=== PATIENT | female | born 1985 | race Caucasian/White ===

== ENCOUNTER 2020-08-13 11:24 | Emergency (ER) | payer MEDICARE, OTHER ==
[2020-08-13 11:31] VITALS: BP 130/74; PULSE 114; TEMP 98.2
[2020-08-13] MEDS ORDERED: SODIUM CHLORIDE 0.9% 1,000 ML IV STA (12:32)
[2020-08-13] MEDS ORDERED: ONDANSETRON 4 MG/2 ML VIAL IVP STA (12:33)
[2020-08-13] MEDS ORDERED: HYDROmorphone 1 MG/ML 1 ML SYRINGE IVP STA ×2 (12:33→16:19)
[2020-08-13] MEDS ORDERED: diphenhydrAMINE 50 MG/ML 1 ML VIAL IVP STA (12:33)
--- NOTE | 2020-08-13 12:36 | ED ---
Headache HPI - General Chief Complaint: Headache Stated Complaint: Headache, Fever Time Seen by Provider: 08/13/20 11:58 Mode of arrival: ambulatory Limitations: no limitations - History of Present Illness Initial Comments: 35-year-old female with history of pseudotumor cerebri, BP and lumbar shunt presents emergency Department with chief complaint nausea and vomiting. Patient reports the pain started yesterday with a gradual onset and now is located throughout her whole head. Patient states it is a throbbing pain with associated nausea and multiple episodes of nonbilious and nonbloody vomiting. Patient reports no significant neck stiffness. Patient states she had a fever yesterday but never actually taken her temperature. She took Tylenol and Motrin. Denies any chest pain or shortness of breath. Denies any blurry vision, one-sided weakness or paresthesias. - Related Data Home Medications Medication Instructions Recorded Confirmed DULoxetine HCL [Cymbalta] 120 mg PO DAILY 08/13/20 08/13/20 Divalproex Sodium [Depakote] 500 mg PO TID 08/13/20 08/13/20 Famotidine [Pepcid] 20 mg PO DAILY 08/13/20 08/13/20 Gabapentin 800 mg PO QID 08/13/20 08/13/20 HYDROcodone/APAP 5-325MG [Given 1 tab PO Q4HR PRN 08/13/20 08/13/20 5-325] Methocarbamol [Robaxin-750] 750 mg PO TID 08/13/20 08/13/20 Prazosin [Minipress] 5 mg PO HS 08/13/20 08/13/20 hydrOXYzine pamoate [Vistaril] 50 mg PO TID 08/13/20 08/13/20 traZODone HCL 300 mg PO HS 08/13/20 08/13/20 Allergies Allergy/AdvReac Type Severity Reaction Status Date / Time ketorolac [From Toradol] Allergy Anaphylaxis Verified 08/13/20 13:41 latex Allergy Anaphylaxis Verified 08/13/20 13:41 iodine AdvReac Rash/Hives Verified 08/13/20 13:41 Review of Systems ROS Statement: Those systems with pertinent positive or pertinent negative responses have been documented in the HPI. ROS Other: All systems not noted in ROS Statement are negative. Past Medical History Additional Past Medical History / Comment(s): intracranial hypertension History of Any Multi-Drug Resistant Organisms: None Reported Additional Past Surgical History / Comment(s): brain shunt Past Psychological History: Bipolar, PTSD Smoking Status: Current every day smoker Past Alcohol Use History: None Reported Past Drug Use History: Marijuana General Exam Limitations: no limitations General appearance: alert, in no apparent distress, obese Head exam: Present: atraumatic, normocephalic, normal inspection Eye exam: Present: normal appearance, PERRL, EOMI. Absent: scleral icterus, conjunctival injection, nystagmus, periorbital swelling, periorbital tenderness, other (Limited ophthalmic examination reveals no acute findings) Pupils: Present: normal accommodation ENT exam: Present: normal exam, normal oropharynx, mucous membranes moist, TM's normal bilaterally, normal external ear exam Neck exam: Present: normal inspection, full ROM. Absent: tenderness Respiratory exam: Present: normal lung sounds bilaterally. Absent: respiratory distress Cardiovascular Exam: Present: regular rate, normal rhythm, normal heart sounds GI/Abdominal exam: Present: soft. Absent: distended, tenderness, guarding Extremities exam: Present: normal inspection, full ROM, normal capillary refill. Absent: tenderness Back exam: Present: normal inspection, full ROM. Absent: tenderness, CVA tend erness (R), CVA tenderness (L) Neurological exam: Present: alert, oriented X3 Psychiatric exam: Present: normal affect, normal mood Skin exam: Present: warm, dry, intact, normal color Course Vital Signs 08/13/20 11:28 Temperature 98.2 F Pulse Rate 114 H Respiratory 18 Rate Blood Pressure 130/74 O2 Sat by Pulse 99 Oximetry Medical Decision Making - Medical Decision Making 35-year-old female presents to the emergency department with a chief complaint of a headache. On physical examination, no focal neural deficits. Patient is resting comfortably plainer phone. Patient does not appear to be any sig nificant discomfort or pain at this time. CBC reveals anemia but no signs of leukocytosis. Lactic acid within normal limits. CMP unremarkable. CT of the brain and C-spine is unremarkable. Blood cultures are pending. Vitals are stable in the emergency department. She had poor venous access so a midline had to be inserted. Patient does appear to exhibit drug-seeking behavior patient repetitively asked for Dilaudid or morphine. Strict return parameters were thoroughly discussed the patient was understanding and agreeable. This discussed with Dr. Armenta who also examined the patient and is in agreement with the treatment plan. - Lab Data Result diagrams: 08/13/20 12:58 08/13/20 12:58 Lab Results 08/13/20 08/13/20 08/13/20 Range/Units 12:58 12:58 12:58 WBC 4.1 (3.8-10.6) k/uL RBC 3.53 L (3.80-5.40) m/uL Hgb 9.3 L (11.4-16.0) gm/dL Hct 28.1 L (34.0-46.0) % MCV 79.7 L (80.0-100.0) fL MCH 26.4 (25.0-35.0) pg MCHC 33.2 (31.0-37.0) g/dL RDW 19.1 H (11.5-15.5) % Plt Count 201 (150-450) k/uL MPV 7.4 Neutrophils % 56 % Lymphocytes % 31 % Monocytes % 7 % Eosinophils % 3 % Basophils % 0 % Neutrophils # 2.3 (1.3-7.7) k/uL Lymphocytes # 1.3 (1.0-4.8) k/uL Monocytes # 0.3 (0-1.0) k/uL Eosinophils # 0.1 (0-0.7) k/uL Basophils # 0.0 (0-0.2) k/uL Hypochromasia Slight Anisocytosis Slight Microcytosis Slight Sodium 138 (137-145) mmol/L Potassium 4.0 (3.5-5.1) mmol/L Chloride 104 (98-107) mmol/L Carbon Dioxide 27 (22-30) mmol/L Anion Gap 7 mmol/L BUN 13 (7-17) mg/dL Creatinine 0.58 (0.52-1.04) mg/dL Est GFR (CKD-EPI)AfAm >90 (>60 ml/min/1.73 sqM) Est GFR (CKD-EPI)NonAf >90 (>60 ml/min/1.73 sqM) Glucose 82 (74-99) mg/dL Plasma Lactic Acid Tray (0.7-2.0) mmol/L Calcium 9.0 (8.4-10.2) mg/dL Total Bilirubin 0.4 (0.2-1.3) mg/dL AST 18 (14-36) U/L ALT 9 (4-34) U/L Alkaline Phosphatase 48 (38-126) U/L Total Protein 6.3 (6.3-8.2) g/dL Albumin 3.6 (3.5-5.0) g/dL Coronavirus (PCR) Not Detected (Not Detectd) 08/13/20 Range/Units 12:58 WBC (3.8-10.6) k/uL RBC (3.80-5.40) m/uL Hgb (11.4-16.0) gm/dL Hct (34.0-46.0) % MCV (80.0-100.0) fL MCH (25.0-35.0) pg MCHC (31.0-37.0) g/dL RDW (11.5-15.5) % Plt Count (150-450) k/uL MPV Neutrophils % % Lymphocytes % % Monocytes % % Eosinophils % % Basophils % % Neutrophils # (1.3-7.7) k/uL Lymphocytes # (1.0-4.8) k/uL Monocytes # (0-1.0) k/uL Eosinophils # (0-0.7) k/uL Basophils # (0-0.2) k/uL Hypochromasia Anisocytosis Microcytosis Sodium (137-145) mmol/L Potassium (3.5-5.1) mmol/L Chloride (98-107) mmol/L Carbon Dioxide (22-30) mmol/L Anion Gap mmol/L BUN (7-17) mg/dL Creatinine (0.52-1.04) mg/dL Est GFR (CKD-EPI)AfAm (>60 ml/min/1.73 sqM) Est GFR (CKD-EPI)NonAf (>60 ml/min/1.73 sqM) Glucose (74-99) mg/dL Plasma Lactic Acid Tray 0.8 (0.7-2.0) mmol/L Calcium (8.4-10.2) mg/dL Total Bilirubin (0.2-1.3) mg/dL AST (14-36) U/L ALT (4-34) U/L Alkaline Phosphatase (38-126) U/L Total Protein (6.3-8.2) g/dL Albumin (3.5-5.0) g/dL Coronavirus (PCR) (Not Detectd) Disposition Clinical Impression: Headache, Drug-seeking behavior Disposition: HOME SELF-CARE Condition: Stable Instructions (If sedation given, give patient instructions): Acute Headache (ED) Additional Instructions: Please return to the Emergency Department if symptoms worsen or any other concerns. Is patient prescribed a controlled substance at d/c from ED?: No Referrals: None,Stated [Primary Care Provider] - 1-2 days Time of Disposition: 16:08
[2020-08-13 15:23] LABS: Anisocytosis Slight; Basophils % (A) 0 %; Eosinophils # (A) 0.1 k/uL (0-0.7); Eosinophils % (A) 3 %; HCT 28.1 % (34.0-46.0); HGB 9.3 gm/dL (11.4-16.0); Hypochromasia Slight; Lymphocytes # (A) 1.3 k/uL (1.0-4.8); Lymphocytes % (A) 31 %; MCH 26.4 pg (25.0-35.0); MCHC 33.2 g/dL (31.0-37.0); MCV 79.7 fL (80.0-100.0); Mean Platelet Volume 7.4; Microcytosis Slight; Monocytes # (A) 0.3 k/uL (0-1.0); Monocytes % (A) 7 %; Neutrophils # (A) 2.3 k/uL (1.3-7.7); Neutrophils % (A) 56 %; Platelet Count 201 k/uL (150-450); RBC 3.53 m/uL (3.80-5.40); RDW 19.1 % (11.5-15.5); WBC 4.1 k/uL (3.8-10.6)
[2020-08-13 15:41] LABS: ALT 9 U/L (4-34); AST 18 U/L (14-36); African American GFR (CKD) >90 (>60 ml/min/1.73 sqM); Albumin 3.6 g/dL (3.5-5.0); Alkaline Phosphatase 48 U/L (38-126); Anion Gap 7 mmol/L; Blood Urea Nitrogen 13 mg/dL (7-17); Carbon Dioxide 27 mmol/L (22-30); Chloride 104 mmol/L (98-107); Glucose 82 mg/dL (74-99); Non-African American GFR(CKD) >90 (>60 ml/min/1.73 sqM); Sodium 138 mmol/L (137-145); Total Bilirubin 0.4 mg/dL (0.2-1.3); Total Protein 6.3 g/dL (6.3-8.2)
--- NOTE | 2020-08-13 18:38 | CT ---
EXAMINATION TYPE: CT brain wo con DATE OF EXAM: 08/13/2020 COMPARISON: 11/04/2012 HISTORY: Headache CT DLP: 1131.4 mGycm Automated exposure control for dose reduction was used. Ventricles have normal size. There is no mass effect nor midline shift. There is no sign of intracran ial hemorrhage. There is ventricular shunt catheter noted with the tip in the frontal horn left later al ventricle. There is no hydrocephalus. Skull base is intact. IMPRESSION: No acute intracranial abnormality. No change compared to old exam.
[2020-08-13] MEDS ORDERED: ACETAMINOPHEN TAB 325 MG TAB PO STA (19:25)
[2020-08-13 19:52] VITALS: RESP 16
== END 2020-08-13 19:49 | disposition home or self-care (01) ==
LOC: EC 11:24
DX: R51.9 Headache, unspecified (principal); Z76.5 Malingerer [conscious simulation]; I10 Essential (primary) hypertension; F17.200 Nicotine dependence, unspecified, uncomplicated
CPT/HCPCS: 36415; 80053; 83605; 85025; 87040; 87635; 70450; 99284; 96374; 96375; 96376; J1200; J2405; J1170

== ENCOUNTER 2020-08-16 14:26 | Emergency (ER) | payer MEDICARE, OTHER ==
[2020-08-16 14:41] VITALS: BP 123/86; PULSE 107; RESP 18
[2020-08-16 18:41] VITALS: TEMP 98.7
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
== END 2020-08-16 19:15 | disposition left against medical advice (07) ==
LOC: EC 14:26
DX: R51.9 Headache, unspecified (principal); F17.200 Nicotine dependence, unspecified, uncomplicated; F12.90 Cannabis use, unspecified, uncomplicated; G93.2 Benign intracranial hypertension; F31.9 Bipolar disorder, unspecified
CPT/HCPCS: 99283

== ENCOUNTER 2021-07-18 15:26 | Emergency (ER) | payer MEDICARE, OTHER ==
[2021-07-18 18:36] VITALS: BP 124/75; PULSE 74; RESP 18; TEMP 98.5
[2021-07-18] MEDS ORDERED: SODIUM CHLORIDE 0.9% 500 ML 500 ML IV STA (18:42)
[2021-07-18] MEDS ORDERED: METOCLOPRAMIDE 5 MG/ML 2 ML VIAL IVP STA (18:43)
[2021-07-18] MEDS ORDERED: diphenhydrAMINE 50 MG/ML 1 ML VIAL IVP STA (18:43)
[2021-07-18] MEDS ORDERED: MORPHINE SULFATE 4 MG/ML SYRINGE IV STA ×2 (18:43→21:48)
[2021-07-18] MEDS ORDERED: ONDANSETRON 4 MG/2 ML VIAL IVP STA (18:43)
--- NOTE | 2021-07-18 18:49 | ED ---
Headache HPI - General Chief Complaint: Headache Stated Complaint: headache, fever Time Seen by Provider: 07/18/21 18:35 Source: RN notes reviewed Mode of arrival: ambulatory Limitations: no limitations - History of Present Illness Initial Comments: This is a 36-year-old female history of pseudotumor cerebri, meningitis, ventriculoperitoneal shunt and lumbar shunt. Patient states the FINANCIAL PLANNING ADVISER shunt has been in for about 5 years. Patient states that she started having a fever, headache, vomiting yesterday. Patient also has some nasal congestion but denies cough or runny nose. Patient has had the COVID-19 vaccination but has not had the booster. Did not get a flu shot. Denies chest pain or shortness of breath. No abdominal pain. No diarrhea. States that she has had a fever up to 102., no changes in vision or hearing, no sore throat or difficulty with speech, no neck pain, no chest pain or shortness of breath, no abdominal pain, no changes in urination or bowel movements, no numbness or tingling, no extremity pain, no skin rashes or lesions. [facility] a detention. Patient has a neurologist a tray that she has not seen since 2020, Dr. Haley Lopez. Complaint: headache - Related Data Home Medications Medication Instructions Recorded Confirmed DULoxetine HCL [Cymbalta] 120 mg PO DAILY 08/13/20 08/13/20 Divalproex Sodium [Depakote] 500 mg PO TID 08/13/20 08/13/20 Famotidine [Pepcid] 20 mg PO DAILY 08/13/20 08/13/20 Gabapentin 800 mg PO QID 08/13/20 08/13/20 HYDROcodone/APAP 5-325MG [[place] 1 tab PO Q4HR PRN 08/13/20 08/13/20 5-325] Methocarbamol [Robaxin-750] 750 mg PO TID 08/13/20 08/13/20 Prazosin [Minipress] 5 mg PO HS 08/13/20 08/13/20 hydrOXYzine pamoate [Vistaril] 50 mg PO TID 08/13/20 08/13/20 traZODone HCL 300 mg PO HS 08/13/20 08/13/20 Previous Rx's Medication Instructions Recorded Isomethept/Dichlphn/Acetaminop 1 - 2 cap PO Q6H PRN 3 Days #24 cap 07/18/21 [Midrin] Allergies Allergy/AdvReac Type Severity Reaction Status Date / Time ketorolac [From Toradol] Allergy Anaphylaxis Verified 07/18/21 15:43 latex Allergy Anaphylaxis Verified 07/18/21 15:43 iodine AdvReac Rash/Hives Verified 07/18/21 15:43 Review of Systems ROS Statement: Those systems with pertinent positive or pertinent negative responses have been documented in the HPI. ROS Other: All systems not noted in ROS Statement are negative. Past Medical History Past Medical History: Seizure Disorder Additional Past Medical History / Comment(s): intracranial hypertension History of Any Multi-Drug Resistant Organisms: MRSA Date of last positivie culture/infection: L ear MDRO Source:: 2011 Past Surgical History: Back Surgery Additional Past Surgical History / Comment(s): brain shunt Past Psychological History: Bipolar, PTSD Smoking Status: Current every day smoker Past Alcohol Use History: None Reported Past Drug Use History: Marijuana General Exam - General Exam Comments Initial Comments: 36-year-old female in no significant distress. Cranial nerves II through XII are intact. Does not appear to be ill or toxic. Vital signs reviewed, minimally tachycardic. Limitations: no limitations General appearance: alert, in no apparent distress Head exam: Present: atraumatic, normocephalic, normal inspection Eye exam: Present: normal appearance, PERRL, EOMI. Absent: scleral icterus, conjunctival injection, periorbital swelling ENT exam: Present: normal exam, normal oropharynx, mucous membranes moist, TM's normal bilaterally Neck exam: Present: normal inspection, full ROM. Absent: tenderness, meningismus, lymphadenopathy Respiratory exam: Present: normal lung sounds bilaterally. Absent: respiratory distress, wheezes, rales, rhonchi, stridor Cardiovascular Exam: Present: regular rate, normal rhythm, normal heart sounds. Absent: systolic murmur, diastolic murmur, rubs, gallop, clicks GI/Abdominal exam: Present: soft, normal bowel sounds. Absent: distended, tenderness, guarding, rebound, rigid Extremities exam: Present: normal inspection, full ROM, normal capillary refill. Absent: tenderness, pedal edema, joint swelling, calf tenderness Back exam: Present: normal inspection Neurological exam: Present: alert, oriented X3, CN II-XII intact, normal gait, other (No evidence of nuchal rigidity. Cranial nerves II through XII are intact. Cerebellar testing is normal). Absent: altered, abnormal gait, motor sensory deficit, reflexes normal Psychiatric exam: Present: normal affect, normal mood Skin exam: Present: warm, dry, intact, normal color. Absent: rash Course Vital Signs 07/18/21 07/18/21 15:40 18:35 Temperature 98.0 F 98.5 F Pulse Rate 84 74 Respiratory 16 18 Rate Blood Pressure 139/85 124/75 O2 Sat by Pulse 100 99 Oximetry - Reevaluation(s) Reevaluation #1: 07/18/21 21:58 Medical record is reviewed Symptoms are improved here in the emergency department Patient is informed of results and questions answered Patient in no distress Medical Decision Making - Medical Decision Making Obtain a computed tomography scan as the patient does have a FINANCIAL PLANNING ADVISER shunt. However the patient looks well otherwise. Suspect the patient has viral syndrome. We'll order a workup to include influenza and COVID-19 testing. Plan for reevaluation initially morphine and Zofran, metoclopramide, and diphenhydramine were ordered The case was discussed in detail with ED attending physician. Presentation, findings, treatment plan discussed in detail. Patient reevaluated and is in no distress at discharge. Patient is actually laying on her phone when I reassessed her. She states that her pain is improv ed, down to about 410. I did agree to give her 1 more dose of pain medication here. We will prescribe headache medication for home. We'll give the patient follow-up with primary care physician and neurology in this area. Patient concurs with this treatment plan. We did discuss progress wrist cons of further evaluation such as lumbar puncture. This was deferred to shared decision- making. Patient was told to return to the ER for any signs or symptoms worsen. Told to return immediately if any other problems arise. All questions answered. Treatment plan discussed. Patient in agreement Every effort has been made to ensure accuracy of this dictation. However, due to the limitations of electronic medical records and dictation devices, errors in charting still occur. - Lab Data Result diagrams: 07/18/21 18:58 07/18/21 20:52 Lab Results 07/18/21 07/18/21 07/18/21 Range/Units 15:45 18:58 18:58 WBC 6.8 (3.8-10.6) k/uL RBC 3.94 (3.80-5.40) m/uL Hgb 10.5 L (11.4-16.0) gm/dL Hct 33.1 L (34.0-46.0) % MCV 84.1 (80.0-100.0) fL MCH 26.5 (25.0-35.0) pg MCHC 31.6 (31.0-37.0) g/dL RDW 18.2 H (11.5-15.5) % Plt Count 234 (150-450) k/uL MPV 8.6 Neutrophils % 66 % Lymphocytes % 26 % Monocytes % 5 % Eosinophils % 2 % Basophils % 0 % Neutrophils # 4.4 (1.3-7.7) k/uL Lymphocytes # 1.8 (1.0-4.8) k/uL Monocytes # 0.3 (0-1.0) k/uL Eosinophils # 0.1 (0-0.7) k/uL Basophils # 0.0 (0-0.2) k/uL Hypochromasia Marked Anisocytosis Slight Sodium (137-145) mmol/L Potassium (3.5-5.1) mmol/L Chloride (98-107) mmol/L Carbon Dioxide (22-30) mmol/L Anion Gap mmol/L BUN (7-17) mg/dL Creatinine (0.52-1.04) mg/dL Est GFR (CKD-EPI)AfAm (>60 ml/min/1.73 sqM) Est GFR (CKD-EPI)NonAf (>60 ml/min/1.73 sqM) Glucose (74-99) mg/dL Plasma Lactic Acid Tray (0.7-2.0) mmol/L Calcium (8.4-10.2) mg/dL Total Bilirubin (0.2-1.3) mg/dL AST (14-36) U/L ALT (4-34) U/L Alkaline Phosphatase (38-126) U/L Total Protein (6.3-8.2) g/dL Albumin (3.5-5.0) g/dL Lipase (23-300) U/L Urine Color Light Yellow Urine Appearance Clear (Clear) Urine pH 6.5 (5.0-8.0) Ur Specific [place] 1.005 (1.001-1.035) Urine Protein Negative (Negative) Urine Glucose (UA) Negative (Negative) Urine Ketones Negative (Negative) Urine Blood Negative (Negative) Urine Nitrite Negative (Negative) Urine Bilirubin Negative (Negative) Urine Urobilinogen <2.0 (<2.0) mg/dL Ur Leukocyte Esterase Negative (Negative) Urine HCG, Qual (Not Detectd) Coronavirus (PCR) Not Detected (Not Detectd) Influenza Type A RNA (Not Detectd) Influenza Type B (PCR) (Not Detectd) 07/18/21 07/18/21 07/18/21 Range/Units 18:58 18:58 19:05 WBC (3.8-10.6) k/uL RBC (3.80-5.40) m/uL Hgb (11.4-16.0) gm/dL Hct (34.0-46.0) % MCV (80.0-100.0) fL MCH (25.0-35.0) pg MCHC (31.0-37.0) g/dL RDW (11.5-15.5) % Plt Count (150-450) k/uL MPV Neutrophils % % Lymphocytes % % Monocytes % % Eosinophils % % Basophils % % Neutrophils # (1.3-7.7) k/uL Lymphocytes # (1.0-4.8) k/uL Monocytes # (0-1.0) k/uL Eosinophils # (0-0.7) k/uL Basophils # (0-0.2) k/uL Hypochromasia Anisocytosis Sodium (137-145) mmol/L Potassium (3.5-5.1) mmol/L Chloride (98-107) mmol/L Carbon Dioxide (22-30) mmol/L Anion Gap mmol/L BUN (7-17) mg/dL Creatinine (0.52-1.04) mg/dL Est GFR (CKD-EPI)AfAm (>60 ml/min/1.73 sqM) Est GFR (CKD-EPI)NonAf (>60 ml/min/1.73 sqM) Glucose (74-99) mg/dL Plasma Lactic Acid Tray 0.7 (0.7-2.0) mmol/L Calcium (8.4-10.2) mg/dL Total Bilirubin (0.2-1.3) mg/dL AST (14-36) U/L ALT (4-34) U/L Alkaline Phosphatase (38-126) U/L Total Protein (6.3-8.2) g/dL Albumin (3.5-5.0) g/dL Lipase (23-300) U/L Urine Color Urine Appearance (Clear) Urine pH (5.0-8.0) Ur Specific [place] (1.001-1.035) Urine Protein (Negative) Urine Glucose (UA) (Negative) Urine Ketones (Negative) Urine Blood (Negative) Urine Nitrite (Negative) Urine Bilirubin (Negative) Urine Urobilinogen (<2.0) mg/dL Ur Leukocyte Esterase (Negative) Urine HCG, Qual Not Detected (Not Detectd) Coronavirus (PCR) (Not Detectd) Influenza Type A RNA Not Detected (Not Detectd) Influenza Type B (PCR) Not Detected (Not Detectd) 07/18/21 Range/Units 20:52 WBC (3.8-10.6) k/uL RBC (3.80-5.40) m/uL Hgb (11.4-16.0) gm/dL Hct (34.0-46.0) % MCV (80.0-100.0) fL MCH (25.0-35.0) pg MCHC (31.0-37.0) g/dL RDW (11.5-15.5) % Plt Count (150-450) k/uL MPV Neutrophils % % Lymphocytes % % Monocytes % % Eosinophils % % Basophils % % Neutrophils # (1.3-7.7) k/uL Lymphocytes # (1.0-4.8) k/uL Monocytes # (0-1.0) k/uL Eosinophils # (0-0.7) k/uL Basophils # (0-0.2) k/uL Hypochromasia Anisocytosis Sodium 137 (137-145) mmol/L Potassium 4.0 (3.5-5.1) mmol/L Chloride 107 (98-107) mmol/L Carbon Dioxide 22 (22-30) mmol/L Anion Gap 8 mmol/L BUN 12 (7-17) mg/dL Creatinine 0.57 (0.52-1.04) mg/dL Est GFR (CKD-EPI)AfAm >90 (>60 ml/min/1.73 sqM) Est GFR (CKD-EPI)NonAf >90 (>60 ml/min/1.73 sqM) Glucose 87 (74-99) mg/dL Plasma Lactic Acid Tray (0.7-2.0) mmol/L Calcium 9.1 (8.4-10.2) mg/dL Total Bilirubin 0.4 (0.2-1.3) mg/dL AST 15 (14-36) U/L ALT 12 (4-34) U/L Alkaline Phosphatase 67 (38-126) U/L Total Protein 7.4 (6.3-8.2) g/dL Albumin 4.2 (3.5-5.0) g/dL Lipase 298 (23-300) U/L Urine Color Urine Appearance (Clear) Urine pH (5.0-8.0) Ur Specific [place] (1.001-1.035) Urine Protein (Negative) Urine Glucose (UA) (Negative) Urine Ketones (Negative) Urine Blood (Negative) Urine Nitrite (Negative) Urine Bilirubin (Negative) Urine Urobilinogen (<2.0) mg/dL Ur Leukocyte Esterase (Negative) Urine HCG, Qual (Not Detectd) Coronavirus (PCR) (Not Detectd) Influenza Type A RNA (Not Detectd) Influenza Type B (PCR) (Not Detectd) Disposition Clinical Impression: Acute headache Disposition: HOME SELF-CARE Condition: Good Instructions (If sedation given, give patient instructions): Acute Headache (ED) Additional Instructions: Follow-up with your regular physician as directed. Return to the ER immediately if any symptoms worsen, new symptoms arise, or any other problems develop. Prescriptions: Isomethept/Dichlphn/Acetaminop [Midrin] 1 - 2 cap PO Q6H PRN 3 Days #24 cap PRN Reason: Headache Is patient prescribed a controlled substance at d/c from ED?: No Referrals: Amla Delia Smith MD [REFERRING] - 1-2 days Kain Brar [STAFF PHYSICIAN] - 1-2 days Time of Disposition: 21:58
[2021-07-18 19:22] LABS: Anisocytosis Slight; Appearance,Urine Clear (Clear); Basophils % (A) 0 %; Bilirubin,Urine Negative (Negative); Blood,Urine Negative (Negative); Color,Urine Light Yellow; Eosinophils # (A) 0.1 k/uL (0-0.7); Eosinophils % (A) 2 %; Glucose,Urine (UA) Negative (Negative); HCT 33.1 % (34.0-46.0); HGB 10.5 gm/dL (11.4-16.0); Hypochromasia Marked; Ketones,Urine Negative (Negative); Leukocyte Esterase,Urine Negative (Negative); Lymphocytes # (A) 1.8 k/uL (1.0-4.8); Lymphocytes % (A) 26 %; MCH 26.5 pg (25.0-35.0); MCHC 31.6 g/dL (31.0-37.0); MCV 84.1 fL (80.0-100.0); Mean Platelet Volume 8.6; Monocytes # (A) 0.3 k/uL (0-1.0); Monocytes % (A) 5 %; Neutrophils # (A) 4.4 k/uL (1.3-7.7); Neutrophils % (A) 66 %; Nitrite,Urine Negative (Negative); PH, Urine 6.5 (5.0-8.0); Platelet Count 234 k/uL (150-450); Protein,Urine Negative (Negative); RBC 3.94 m/uL (3.80-5.40); RDW 18.2 % (11.5-15.5); Specific Gravity,Urine 1.005 (1.001-1.035); Urobilinogen,Urine <2.0 mg/dL (<2.0); WBC 6.8 k/uL (3.8-10.6)
[2021-07-18 21:10] LABS: ALT 12 U/L (4-34); AST 15 U/L (14-36); African American GFR (CKD) >90 (>60 ml/min/1.73 sqM); Albumin 4.2 g/dL (3.5-5.0); Alkaline Phosphatase 67 U/L (38-126); Anion Gap 8 mmol/L; Blood Urea Nitrogen 12 mg/dL (7-17); Calcium 9.1 mg/dL (8.4-10.2); Carbon Dioxide 22 mmol/L (22-30); Chloride 107 mmol/L (98-107); Glucose 87 mg/dL (74-99); Lipase 298 U/L (23-300); Non-African American GFR(CKD) >90 (>60 ml/min/1.73 sqM); Sodium 137 mmol/L (137-145); Total Bilirubin 0.4 mg/dL (0.2-1.3); Total Protein 7.4 g/dL (6.3-8.2)
--- NOTE | 2021-07-18 21:20 | CT ---
EXAMINATION TYPE: CT brain wo con CT DLP: 1133.4 mGycm, Automated exposure control for dose reduction was used. DATE OF EXAM: 07/18/2021 9:10 PM COMPARISON: Prior CT Brain from 08/13/2020. CLINICAL INDICATION:Female, 36 years old with history of Headache, TECHNIQUE: Brain: Multiple axial CT images of the brain were obtained without IV contrast. FINDINGS: Brain: Extra-axial spaces: No abnormal extra-axial fluid collections. Ventricular system: Right frontal approach ventriculostomy catheter with tip terminating near the lef t caudate nucleus similar to prior. The ventricular system appears similar in morphology dilation. Ca theter tubing appears intact. Cerebral parenchyma: No acute intraparenchymal hemorrhage or mass effect. The negrete-white junction is well differentiated. Cerebellum: Unremarkable. Mass effect: No evidence of midline shift. Intracranial vasculature: unremarkable Soft tissues: Normal. Calvarium/osseous structures: No depressed skull fracture. Benign hyperostosis frontalis noted. Paranasal sinuses and mastoid air cells: Clear Visualized orbits: Orbital contents are intact. IMPRESSION: 1. No acute intracranial process. 2. Stable appearance of the ventricular system and right frontal approach ventriculostomy catheter.
== END 2021-07-18 22:45 | disposition home or self-care (01) ==
LOC: EC 15:26
DX: R51.9 Headache, unspecified (principal); I10 Essential (primary) hypertension; F17.200 Nicotine dependence, unspecified, uncomplicated; Z20.822 Contact with and (suspected) exposure to COVID-19; Z88.6 Allergy status to analgesic agent; Z91.040 Latex allergy status; Z91.041 Radiographic dye allergy status
CPT/HCPCS: 36415; 80053; 83605; 83690; 85025; 81003; 81025; 87040; 87502; 87635; 70450; 99284; 96374; 96375; 96376; J2270; J1200; J2405

== ENCOUNTER 2021-07-19 16:10 | Emergency (ER) | payer MEDICARE, OTHER ==
[2021-07-19 17:14] VITALS: RESP 18; TEMP 98.5
[2021-07-19] MEDS ORDERED: METOCLOPRAMIDE 5 MG/ML 2 ML VIAL IVP STA (19:52)
[2021-07-19] MEDS ORDERED: ONDANSETRON 4 MG/2 ML VIAL IVP STA (19:52)
[2021-07-19] MEDS ORDERED: diphenhydrAMINE 50 MG/ML 1 ML VIAL IVP STA (19:52)
[2021-07-19] MEDS ORDERED: MORPHINE SULFATE 2 MG/ML SYRINGE IVP STA ×2 (19:58→23:21)
--- NOTE | 2021-07-19 21:10 | ED ---
Headache HPI - General Chief Complaint: Headache Stated Complaint: Fever,Vomiting Time Seen by Provider: 07/19/21 18:58 Mode of arrival: ambulatory Limitations: no limitations - History of Present Illness Initial Comments: Patient is a 36-year-old female presenting with chief complaint of headache. 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 Patient was seen here yesterday for the same complaint. Head CT showed no acute intracranial process and pain was responsive to morphine, Benadryl, Reglan, Zofran. She was discharged with Midrin which she has not taken home for pain relief. Patient is complaining of diffuse headache, fever, neck pain or stiffness. She has not seen her neurologist Dr. Lopez in about a year. Patient admits to light sensitivity, nausea, and double vision. Patient denies numbness, tingling, paresthesia, weakness, syncope, seizure, vomiting, abdominal pain, chest pain, shortness of breath, palpitations, confusion. - Related Data Home Medications Medication Instructions Recorded Confirmed DULoxetine HCL [Cymbalta] 120 mg PO DAILY 08/13/20 08/13/20 Divalproex Sodium [Depakote] 500 mg PO TID 08/13/20 08/13/20 Famotidine [Pepcid] 20 mg PO DAILY 08/13/20 08/13/20 Gabapentin 800 mg PO QID 08/13/20 08/13/20 HYDROcodone/APAP 5-325MG [[place] 1 tab PO Q4HR PRN 08/13/20 08/13/20 5-325] Methocarbamol [Robaxin-750] 750 mg PO TID 08/13/20 08/13/20 Prazosin [Minipress] 5 mg PO HS 08/13/20 08/13/20 hydrOXYzine pamoate [Vistaril] 50 mg PO TID 08/13/20 08/13/20 traZODone HCL 300 mg PO HS 08/13/20 08/13/20 Previous Rx's Medication Instructions Recorded Isomethept/Dichlphn/Acetaminop 1 - 2 cap PO Q6H PRN 3 Days #24 cap 07/18/21 [Midrin] Allergies Allergy/AdvReac Type Severity Reaction Status Date / Time ketorolac [From Toradol] Allergy Anaphylaxis Verified 07/19/21 17:14 latex Allergy Anaphylaxis Verified 07/19/21 17:14 iodine AdvReac Rash/Hives Verified 07/19/21 17:14 Review of Systems ROS Statement: Those systems with pertinent positive or pertinent negative responses have been documented in the HPI. ROS Other: All systems not noted in ROS Statement are negative. Past Medical History Past Medical History: Seizure Disorder Additional Past Medical History / Comment(s): intracranial hypertension History of Any Multi-Drug Resistant Organisms: MRSA Date of last positivie culture/infection: L ear MDRO Source:: 2011 Past Surgical History: Back Surgery Additional Past Surgical History / Comment(s): brain shunt Past Psychological History: Bipolar, PTSD Smoking Status: Current every day smoker Past Alcohol Use History: None Reported Past Drug Use History: Marijuana General Exam Limitations: no limitations General appearance: alert, in no apparent distress Head exam: Present: atraumatic, normocephalic, normal inspection Eye exam: Present: normal appearance, PERRL, EOMI. Absent: scleral icterus, conjunctival injection, periorbital swelling Neck exam: Present: normal inspection, meningismus, full ROM (Pt states pain with ROM). Absent: tenderness Expanded Neck exam: Present: other (Pt suddenyl jerks when performing kernig's) Respiratory exam: Present: normal lung sounds bilaterally. Absent: respiratory distress, wheezes, rales, rhonchi, stridor Cardiovascular Exam: Present: regular rate, normal rhythm, normal heart sounds. Absent: systolic murmur, diastolic murmur, rubs, gallop, clicks Neurological exam: Present: alert, oriented X3, CN II-XII intact Expanded Patient oriented to: Present: person, place, time Speech: Present: fluid speech Eye Response: (4) open spontaneously Motor Response: (6) obeys commands Verbal Response: (5) oriented Me[place] Total: 15 Psychiatric exam: Present: normal affect, normal mood Skin exam: Present: warm, dry, intact, normal color. Absent: rash Course Vital Signs 07/19/21 07/19/21 17:11 21:00 Temperature 98.5 F Pulse Rate 99 90 Respiratory 18 18 Rate Blood Pressure 117/81 122/78 O2 Sat by Pulse 100 100 Oximetry - Reevaluation(s) Reevaluation #1: Pt states that pain is somewhat relieved. She is sitting up and on phone at evaluation. Explained to patient the need for transfer. patient conveyed verbal understanding and agreed to the plan 07/19/21 22:07 Medical Decision Making - Medical Decision Making Patient is a 36-year-old female presenting with chief complaint of headache. She was evaluated in this ER yesterday for the same complaint, head CT showed no acute process and lab showed no leukocytosis. Today a shunt series is being obtained and CBC and CMP were drawn. On exam she complains of neck tenderness and stiffness, when performing Kernig's she suddenly jerks citing increased head pain and pressure. She is given morphine 2 mg, Zofran 4 mg, Reglan, and Benadryl 25 mg for pain and nausea. Patient states this is somewhat helpful but does not completely alleviate symptoms. Lab work shows normal white count and shunt series shows no discontinuation of shunt. Case discussed with Dr. Brandt, he evaluated and examined the patient as well and advised transfer to hospital with neurosurgery. We are concerned for shunt malfunction, and my attending is not comfortable with performing LP due to current lumbar shunt. [facility] is accepting transfer under Dr. Hong. Patient conveyed verbal understanding and agreed to the plan. Answered all questions. I discussed this case with my attending Dr. Brandt - Lab Data Result diagrams: 07/19/21 20:53 07/19/21 20:53 Lab Results 07/19/21 07/19/21 Range/Units 20:53 20:53 WBC 6.8 (3.8-10.6) k/uL RBC 3.97 (3.80-5.40) m/uL Hgb 10.4 L (11.4-16.0) gm/dL Hct 34.0 (34.0-46.0) % MCV 85.7 (80.0-100.0) fL MCH 26.3 (25.0-35.0) pg MCHC 30.7 L (31.0-37.0) g/dL RDW 18.1 H (11.5-15.5) % Plt Count 257 (150-450) k/uL MPV 7.6 Neutrophils % 58 % Lymphocytes % 29 % Monocytes % 6 % Eosinophils % 6 % Basophils % 0 % Neutrophils # 3.9 (1.3-7.7) k/uL Lymphocytes # 2.0 (1.0-4.8) k/uL Monocytes # 0.4 (0-1.0) k/uL Eosinophils # 0.4 (0-0.7) k/uL Basophils # 0.0 (0-0.2) k/uL Hypochromasia Marked Anisocytosis Slight Sodium 136 L (137-145) mmol/L Potassium 4.6 (3.5-5.1) mmol/L Chloride 106 (98-107) mmol/L Carbon Dioxide 24 (22-30) mmol/L Anion Gap 6 mmol/L BUN 10 (7-17) mg/dL Creatinine 0.55 (0.52-1.04) mg/dL Est GFR (CKD-EPI)AfAm >90 (>60 ml/min/1.73 sqM) Est GFR (CKD-EPI)NonAf >90 (>60 ml/min/1.73 sqM) Glucose 90 (74-99) mg/dL Calcium 8.8 (8.4-10.2) mg/dL Total Bilirubin 0.5 (0.2-1.3) mg/dL AST 23 (14-36) U/L ALT 12 (4-34) U/L Alkaline Phosphatase 49 (38-126) U/L Total Protein 7.0 (6.3-8.2) g/dL Albumin 3.8 (3.5-5.0) g/dL - Radiology Data Radiology results: report reviewed Shunt series: No discontinuity of shunt Disposition Clinical Impression: Headache, Double vision, OFFSET PLATE PREPARATION SUPERVISOR (ventriculoperitoneal) shunt status, Presence of lumboperitoneal shunt Disposition: DISCH/TRANS TO A [facility] Condition: Fair Is patient prescribed a controlled substance at d/c from ED?: No Referrals: None,Stated [Primary Care Provider] - 1-2 days Time of Disposition: 22:04 - Out of Hospital Transfer - Req. Specs Out of Hospital Transfer - Requested Specifics: Other Non-Acute (neuro surgery - Dr. Hong)
[2021-07-19 21:12] LABS: Anisocytosis Slight; Basophils % (A) 0 %; Eosinophils # (A) 0.4 k/uL (0-0.7); Eosinophils % (A) 6 %; HGB 10.4 gm/dL (11.4-16.0); Hypochromasia Marked; Lymphocytes % (A) 29 %; MCH 26.3 pg (25.0-35.0); MCHC 30.7 g/dL (31.0-37.0); MCV 85.7 fL (80.0-100.0); Mean Platelet Volume 7.6; Monocytes # (A) 0.4 k/uL (0-1.0); Monocytes % (A) 6 %; Neutrophils # (A) 3.9 k/uL (1.3-7.7); Neutrophils % (A) 58 %; Platelet Count 257 k/uL (150-450); RBC 3.97 m/uL (3.80-5.40); RDW 18.1 % (11.5-15.5); WBC 6.8 k/uL (3.8-10.6)
[2021-07-19 21:24] LABS: ALT 12 U/L (4-34); AST 23 U/L (14-36); African American GFR (CKD) >90 (>60 ml/min/1.73 sqM); Albumin 3.8 g/dL (3.5-5.0); Alkaline Phosphatase 49 U/L (38-126); Anion Gap 6 mmol/L; Blood Urea Nitrogen 10 mg/dL (7-17); Calcium 8.8 mg/dL (8.4-10.2); Carbon Dioxide 24 mmol/L (22-30); Chloride 106 mmol/L (98-107); Glucose 90 mg/dL (74-99); Non-African American GFR(CKD) >90 (>60 ml/min/1.73 sqM); Potassium 4.6 mmol/L (3.5-5.1); Sodium 136 mmol/L (137-145); Total Bilirubin 0.5 mg/dL (0.2-1.3)
--- NOTE | 2021-07-19 21:28 | XR ---
RESULT: HISTORY: shunt series - headache TECHNIQUE: 2 views skull AP view chest. 2 views abdomen/ KUB COMPARISON: 11/13/2012. FINDINGS: There is demonstration of right-sided SHOVEL ENGINEER shunt catheter. The distal portion of the catheter courses t owards the abdominal left upper quadrant with multiple loops seen. Otherwise no discontinuity of the shunt catheter. Additional short right lower abdominal quadrant catheter seen. The visualized lungs are clear. Nonobstructive bowel gas pattern. No acute osseous abnormality. IMPRESSION: Right SHOVEL ENGINEER shunt catheter with multiple looping of distal portion coursing towards the abdominal left u pper quadrant. No discontinuity seen. Additional right lower quadrant catheter.
[2021-07-19 21:51] VITALS: BP 122/78; PULSE 90
== END 2021-07-19 23:33 ==
LOC: EC 16:10
DX: R51.9 Headache, unspecified (principal); H53.2 Diplopia; F17.200 Nicotine dependence, unspecified, uncomplicated; Z91.040 Latex allergy status; Z88.6 Allergy status to analgesic agent; Z91.041 Radiographic dye allergy status
CPT/HCPCS: 36415; 80053; 85025; 70250; 71045; 74018; 99284; 96374; 96375; 96376; J1200; J2405; J2270

== ENCOUNTER 2021-07-22 10:53 | Emergency (ER) | payer MEDICARE, OTHER ==
[2021-07-22 10:58] VITALS: TEMP 98
[2021-07-22] MEDS ORDERED: MORPHINE SULFATE 4 MG/ML SYRINGE IV STA (11:13)
[2021-07-22] MEDS ORDERED: SODIUM CHLORIDE 0.9% 1,000 ML IV STA (11:13)
[2021-07-22] MEDS ORDERED: ONDANSETRON 4 MG/2 ML VIAL IVP STA ×3 (11:13→16:41)
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
[2021-07-22 12:05] LABS: Appearance,Urine Clear (Clear); Bilirubin,Urine Negative (Negative); Blood,Urine Negative (Negative); Color,Urine Yellow; Glucose,Urine (UA) Negative (Negative); Ketones,Urine Trace (Negative); Leukocyte Esterase,Urine Negative (Negative); Nitrite,Urine Negative (Negative); Protein,Urine Negative (Negative); Specific Gravity,Urine 1.025 (1.001-1.035); Urobilinogen,Urine <2.0 mg/dL (<2.0)
[2021-07-22 13:12] LABS: ALT 13 U/L (4-34); AST 16 U/L (14-36); African American GFR (CKD) >90 (>60 ml/min/1.73 sqM); Albumin 4.6 g/dL (3.5-5.0); Alkaline Phosphatase 70 U/L (38-126); Anion Gap 12 mmol/L; Anisocytosis Slight; Basophils % (A) 0 %; Blood Urea Nitrogen 14 mg/dL (7-17); Calcium 9.2 mg/dL (8.4-10.2); Carbon Dioxide 19 mmol/L (22-30); Chloride 109 mmol/L (98-107); Eosinophils # (A) 0.2 k/uL (0-0.7); Eosinophils % (A) 3 %; Glucose 82 mg/dL (74-99); HCT 41.7 % (34.0-46.0); HGB 12.2 gm/dL (11.4-16.0); Hypochromasia Marked; Lipase 346 U/L (23-300); Lymphocytes # (A) 1.3 k/uL (1.0-4.8); Lymphocytes % (A) 23 %; MCH 25.7 pg (25.0-35.0); MCHC 29.4 g/dL (31.0-37.0); MCV 87.7 fL (80.0-100.0); Mean Platelet Volume 7.3; Monocytes # (A) 0.3 k/uL (0-1.0); Monocytes % (A) 5 %; Neutrophils # (A) 3.9 k/uL (1.3-7.7); Neutrophils % (A) 67 %; Non-African American GFR(CKD) >90 (>60 ml/min/1.73 sqM); Platelet Count 256 k/uL (150-450); Potassium 4.1 mmol/L (3.5-5.1); RBC 4.76 m/uL (3.80-5.40); RDW 17.5 % (11.5-15.5); Sodium 140 mmol/L (137-145); Total Bilirubin 0.5 mg/dL (0.2-1.3); Total Protein 8.1 g/dL (6.3-8.2); WBC 5.8 k/uL (3.8-10.6)
[2021-07-22 13:21] VITALS: RESP 18
[2021-07-22] MEDS ORDERED: HYDROmorphone 0.5 MG/0.5 ML SYRINGE IVP STA (13:25)
[2021-07-22 13:41] LABS: INR 0.9 (<1.2); Partial Thromboplastin Time 26.3 sec (22.0-30.0); Prothrombin Time 10.1 sec (9.0-12.0)
[2021-07-22] MEDS ORDERED: FAMOTIDINE 20 MG/2 ML VIAL IV STA (13:45)
[2021-07-22] MEDS ORDERED: methylPREDNISolone SOD SUCCI 125 MG/2 ML VIAL IV STA (13:45)
[2021-07-22] MEDS ORDERED: diphenhydrAMINE 50 MG/ML 1 ML VIAL IVP STA (13:45)
--- NOTE | 2021-07-22 13:47 | US ---
EXAMINATION TYPE: US transvaginal DATE OF EXAM: 07/22/2021 COMPARISON: NONE CLINICAL HISTORY: r/o torsion. Pain, spotting TECHNIQUE: . Transabdominal sonographic images of the pelvis were acquired. Transvaginal sonographi c images were medically necessary to better assess the following anatomy: Endometrium, ovaries Date of LMP: Not provided EXAM MEASUREMENTS: Uterus: 8.4 x 4.1 x 6.3 cm Endometrial Stripe: 1.6 cm Ovaries not seen 1. Uterus: Myometrial echotexture is stable, within normal limits. Some probable nabothian cysts are present at the cervix 2. Endometrium: Abnormally thickened 5. Bilateral Adnexa: Unremarkable 6. Posterior cul-de-sac: Small amount of fluid is present IMPRESSION: Abnormal thickening of the endometrium, consider short interval follow-up, SPRING UP SUPERVISOR consult. L imitations as described, ovaries are not visualized.
[2021-07-22 15:55] VITALS: BP 125/82; PULSE 101
--- NOTE | 2021-07-22 15:55 | CT ---
EXAMINATION TYPE: CT abdomen pelvis w con DATE OF EXAM: 07/22/2021 COMPARISON: No previous CT scan is available for comparison. HISTORY: LLQ pain CT DLP: 1305 mGycm Automated exposure control for dose reduction was used. TECHNIQUE: Helical acquisition of images was performed from the lung bases through the pelvis. CONTRAST: Performed without Oral Contrast and with IV Contrast, patient injected with 100ml mL of Isovue 300. FINDINGS: Motion artifacts and from the patient's arms. LUNG BASES: No significant abnormality is appreciated. LIVER/GB: No significant abnormality is appreciated. PANCREAS: No significant abnormality is seen. SPLEEN: No significant abnormality is seen. ADRENALS: No significant abnormality is seen. KIDNEYS: No significant abnormality is seen. FREE AIR: No free air is visualized. RETROPERITONEAL ADENOPATHY: None visualized REPRODUCTIVE ORGANS: Endometrial thickness of 15 mm which could be normal for the patient's age, plea se correlate clinically and with pelvic ultrasound results. Otherwise no gross uterine or adnexal mas s. URINARY BLADDER: Nondistended and grossly unremarkable. PELVIC ADENOPATHY: None visualized. OSSEOUS STRUCTURES: No gross aggressive bone lesion. BOWEL: Unremarkable nondistended stomach, duodenum and small bowel. No bowel obstruction. No gross c olonic abnormality yet suboptimally assessed due to motion artifacts. The appendix is not well identi fied. OTHER: A ENROBER shunt is seen with the tip is coiling the left upper quadrant. Other shunt is seen connec ting the spinal canal to the peritoneal cavity, also seen in the left upper quadrant. Small amount of free right pelvic fluid. IMPRESSION: Small amount of right pelvic fluid. This is nonspecific and could be related to a recently ruptured r ight ovarian follicle or cyst. Some fecalization of the small bowel is also seen at that location, po ssibly reactive. No evidence of small bowel obstruction. No gross colonic abnormality. The appendix i s not identified. Other incidental findings as detailed above.
[2021-07-22] MEDS ORDERED: HYDROcodone/APAP 5-325MG 1 EACH TAB PO STA (16:36)
[2021-07-22] MEDS ORDERED: MORPHINE SULFATE 2 MG/ML SYRINGE IVP STA (16:41)
== END 2021-07-22 17:07 | disposition home or self-care (01) ==
LOC: EC 10:53
DX: R11.2 Nausea with vomiting, unspecified (principal); R19.7 Diarrhea, unspecified; F17.200 Nicotine dependence, unspecified, uncomplicated; Z88.6 Allergy status to analgesic agent; Z91.041 Radiographic dye allergy status; Z91.040 Latex allergy status; Z88.8 Allergy status to other drugs, medicaments and biological substances; Z88.9 Allergy status to unspecified drugs, medicaments and biological substances
CPT/HCPCS: 36415; 86900; 86901; 80053; 83605; 83690; 85025; 85610; 85730; 86850; 82272; 81003; 81025; 76830; 74177; 99284; 96374; 96375; 96376; 96361; J2270 ×2; J1200; J2930; J2405; J1170; Q9967

== ENCOUNTER 2021-07-23 12:48 | Emergency (ER) | payer MEDICARE, OTHER ==
[2021-07-23 13:34] VITALS: PULSE 83; RESP 16; TEMP 97.3
[2021-07-23] MEDS ORDERED: SODIUM CHLORIDE 0.9% 1,000 ML IV STA (13:40)
[2021-07-23] MEDS ORDERED: HYDROmorphone 0.5 MG/0.5 ML SYRINGE IM STA (13:40)
[2021-07-23] MEDS ORDERED: ONDANSETRON 4 MG/2 ML VIAL IVP STA (13:40)
--- NOTE | 2021-07-23 14:17 | ED ---
General Adult HPI - General Chief complaint: GI Bleed Stated complaint: Blood in stool/vomiting Source: patient, EMS Mode of arrival: EMS - History of Present Illness Initial comments: 36-year-old female with past medical history of intracranial hypertension status post [employer]NAGER and LP shunt presents emergency department for blood in stool and vomit. Patient was seen yesterday for similar complaint. Has a history of colitis and gastritis. States that she started yesterday with multiple episodes of bright red blood in her vomit. Patient additionally had some dark-colored stools. She seen in the emergency department laboratory studies were completed. Patient had a CT and an ultrasound performed. Does have a history of ovarian torsion. States the pain does not feel similar however ultrasound failed to visualize ovaries. Patient had improvement in her pain and wanted to go home. States she's been taking Zofran but continues to have vomiting with blood. Denies any changes in her urination. Does have concern for . Patient has been taking Tylenol for pain control without improvement. No other alleviating, precipitating or modifying factors - Related Data Home Medications Medication Instructions Recorded Confirmed DULoxetine HCL [Cymbalta] 120 mg PO DAILY 08/13/20 07/23/21 Gabapentin 800 mg PO QID 08/13/20 07/23/21 Methocarbamol [Robaxin-750] 750 mg PO TID PRN 08/13/20 07/23/21 Prazosin [Minipress] 5 mg PO HS 08/13/20 07/23/21 hydrOXYzine pamoate [Vistaril] 50 mg PO QID 08/13/20 07/23/21 traZODone HCL 300 mg PO HS 08/13/20 07/23/21 Cariprazine HCl [Vraylar] 4.5 mg PO DAILY 07/22/21 07/23/21 Divalproex ER [Depakote ER] 500 mg PO BID 07/22/21 07/23/21 OLANZapine [ZyPREXA] 10 mg PO BID 07/22/21 07/23/21 Ondansetron [Zofran] 4 mg PO Q8HR PRN 07/22/21 07/23/21 Previous Rx's Medication Instructions Recorded Ondansetron Odt [Zofran ODT] 4 mg PO Q8HR PRN #10 tab 07/22/21 Promethazine [Phenergan] 25 mg PO Q6HR PRN #20 tablet 07/23/21 Allergies Allergy/AdvReac Type Severity Reaction Status Date / Time Iodinated Contrast Media Allergy Rash/Hives Verified 08/12/21 08:03 iodine Allergy Rash/Hives Verified 08/12/21 08:03 ketorolac [From Toradol] Allergy Anaphylaxis Verified 08/12/21 08:03 latex Allergy Anaphylaxis Verified 08/12/21 08:03 metoclopramide [From Reglan] Allergy Unknown Verified 08/12/21 08:03 prochlorperazine Allergy Unknown Verified 08/12/21 08:03 [From Compazine] sumatriptan [From Imitrex] Allergy Unknown Verified 08/12/21 08:03 vancomycin AdvReac red man Verified 08/12/21 08:03 syndrome Review of Systems ROS Statement: Those systems with pertinent positive or pertinent negative responses have been documented in the HPI. ROS Other: All systems not noted in ROS Statement are negative. Past Medical History Past Medical History: Seizure Disorder Additional Past Medical History / Comment(s): intracranial hypertension, colitis, gastritis History of Any Multi-Drug Resistant Organisms: MRSA Date of last positivie culture/infection: L ear MDRO Source:: 2011 Past Surgical History: Back Surgery Additional Past Surgical History / Comment(s): brain shunt Past Psychological History: Bipolar, PTSD Smoking Status: Current every day smoker Past Alcohol Use History: None Reported Past Drug Use History: Marijuana General Exam General appearance: alert, in no apparent distress Head exam: Present: atraumatic, normocephalic, normal inspection Eye exam: Present: normal appearance, PERRL, EOMI. Absent: scleral icterus, conjunctival injection, periorbital swelling ENT exam: Present: normal exam, mucous membranes moist Neck exam: Present: normal inspection. Absent: tenderness, meningismus, ly mphadenopathy Respiratory exam: Present: normal lung sounds bilaterally. Absent: respiratory distress, wheezes, rales, rhonchi, stridor Cardiovascular Exam: Present: regular rate, normal rhythm, normal heart sounds. Absent: systolic murmur, diastolic murmur, rubs, gallop, clicks GI/Abdominal exam: Present: soft, normal bowel sounds. Absent: distended, tenderness, guarding, rebound, rigid Extremities exam: Present: normal inspection, full ROM, normal capillary refill. Absent: tenderness, pedal edema, joint swelling, calf tenderness Back exam: Present: normal inspection Neurological exam: Present: alert, oriented X3, CN II-XII intact Psychiatric exam: Present: normal affect, normal mood Skin exam: Present: warm, dry, intact, normal color. Absent: rash Course Vital Signs 07/23/21 07/23/21 13:23 19:08 Temperature 97.3 F L Pulse Rate 83 83 Respiratory 16 16 Rate Blood Pressure 137/102 132/107 O2 Sat by Pulse 100 96 Oximetry Medical Decision Making - Medical Decision Making Upon arrival patient is placed into room 21. A thorough history and physical exam was performed. I did review the patient's CT, ultrasound and laboratory studies that were done yesterday. Patient continues to have reported hematemesis and the stools. Rectal exam is performed and found to be occult negative. Repeat laboratory studies were conducted. I attempted to repeat an ultrasound. Laboratory studies are reviewed. Ultrasound continues to the be unable to demonstrate the ovaries. The patient was given a dose of pain and nausea medications. I did reevaluate the patient. Reports improvement in her symptoms at this time. Is requesting additional doses of pain medications upon several occasions to me and the nurse. Patient will be discharged home at this time and is instructed follow-up with GI. Take her medications as directed and return for any new or worsening symptoms. Patient agreed to treatment plan was discharged home ambulatory in stable condition - Lab Data Result diagrams: 07/23/21 15:35 07/23/21 15:35 Lab Results 07/23/21 07/23/21 07/23/21 Range/Units 15:35 15:35 15:35 WBC 9.0 (3.8-10.6) k/uL RBC 4.41 (3.80-5.40) m/uL Hgb 11.4 (11.4-16.0) gm/dL Hct 40.9 (34.0-46.0) % MCV 92.8 D (80.0-100.0) fL MCH 25.9 (25.0-35.0) pg MCHC 28.0 L (31.0-37.0) g/dL RDW 17.6 H (11.5-15.5) % Plt Count 250 (150-450) k/uL MPV 7.8 Neutrophils % 73 % Lymphocytes % 18 % Monocytes % 6 % Eosinophils % 1 % Basophils % 1 % Neutrophils # 6.6 (1.3-7.7) k/uL Lymphocytes # 1.6 (1.0-4.8) k/uL Monocytes # 0.5 (0-1.0) k/uL Eosinophils # 0.0 (0-0.7) k/uL Basophils # 0.1 (0-0.2) k/uL Hypochromasia Marked Anisocytosis Slight Sodium 138 (137-145) mmol/L Potassium 3.7 (3.5-5.1) mmol/L Chloride 108 H (98-107) mmol/L Carbon Dioxide 18 L (22-30) mmol/L Anion Gap 12 mmol/L BUN 15 (7-17) mg/dL Creatinine 0.56 (0.52-1.04) mg/dL Est GFR (CKD-EPI)AfAm >90 (>60 ml/min/1.73 sqM) Est GFR (CKD-EPI)NonAf >90 (>60 ml/min/1.73 sqM) Glucose 91 (74-99) mg/dL Lactic Ac Sepsis Rflx Plasma Lactic Acid Tray 2.1 H* (0.7-2.0) mmol/L Calcium 8.9 (8.4-10.2) mg/dL Magnesium 2.0 (1.6-2.3) mg/dL Total Bilirubin 0.5 (0.2-1.3) mg/dL AST 21 (14-36) U/L ALT 13 (4-34) U/L Alkaline Phosphatase 57 (38-126) U/L Total Protein 7.1 (6.3-8.2) g/dL Albumin 4.0 (3.5-5.0) g/dL Lipase 237 (23-300) U/L Urine Color Urine Appearance (Clear) Urine pH (5.0-8.0) Ur Specific [place] (1.001-1.035) Urine Protein (Negative) Urine Glucose (UA) (Negative) Urine Ketones (Negative) Urine Blood (Negative) Urine Nitrite (Negative) Urine Bilirubin (Negative) Urine Urobilinogen (<2.0) mg/dL Ur Leukocyte Esterase (Negative) Stool Occult Blood (Negative) 07/23/21 07/23/21 07/23/21 Range/Units 15:46 15:46 16:00 WBC (3.8-10.6) k/uL RBC (3.80-5.40) m/uL Hgb (11.4-16.0) gm/dL Hct (34.0-46.0) % MCV (80.0-100.0) fL MCH (25.0-35.0) pg MCHC (31.0-37.0) g/dL RDW (11.5-15.5) % Plt Count (150-450) k/uL MPV Neutrophils % % Lymphocytes % % Monocytes % % Eosinophils % % Basophils % % Neutrophils # (1.3-7.7) k/uL Lymphocytes # (1.0-4.8) k/uL Monocytes # (0-1.0) k/uL Eosinophils # (0-0.7) k/uL Basophils # (0-0.2) k/uL Hypochromasia Anisocytosis Sodium (137-145) mmol/L Potassium (3.5-5.1) mmol/L Chloride (98-107) mmol/L Carbon Dioxide (22-30) mmol/L Anion Gap mmol/L BUN (7-17) mg/dL Creatinine (0.52-1.04) mg/dL Est GFR (CKD-EPI)AfAm (>60 ml/min/1.73 sqM) Est GFR (CKD-EPI)NonAf (>60 ml/min/1.73 sqM) Glucose (74-99) mg/dL Lactic Ac Sepsis Rflx Y Plasma Lactic Acid Tray (0.7-2.0) mmol/L Calcium (8.4-10.2) mg/dL Magnesium (1.6-2.3) mg/dL Total Bilirubin (0.2-1.3) mg/dL AST (14-36) U/L ALT (4-34) U/L Alkaline Phosphatase (38-126) U/L Total Protein (6.3-8.2) g/dL Albumin (3.5-5.0) g/dL Lipase (23-300) U/L Urine Color Yellow Urine Appearance Clear (Clear) Urine pH 5.5 (5.0-8.0) Ur Specific [place] 1.026 (1.001-1.035) Urine Protein Negative (Negative) Urine Glucose (UA) Negative (Negative) Urine Ketones Negative (Negative) Urine Blood Negative (Negative) Urine Nitrite Negative (Negative) Urine Bilirubin Negative (Negative) Urine Urobilinogen <2.0 (<2.0) mg/dL Ur Leukocyte Esterase Negative (Negative) Stool Occult Blood Negative (Negative) Disposition Clinical Impression: Abdominal pain, Nausea and vomiting Disposition: HOME SELF-CARE Condition: Stable Instructions (If sedation given, give patient instructions): Abdominal Pain (ED) Additional Instructions: Please take the pain and nausea medications as directed. Follow up with a GI doctor. Return for any worsening symptoms Prescriptions: Promethazine [Phenergan] 25 mg PO Q6HR PRN #20 tablet PRN Reason: nausea Is patient prescribed a controlled substance at d/c from ED?: No Referrals: None,Stated [Primary Care Provider] - 1-2 days Brissa Jj MD [STAFF PHYSICIAN] - 1-2 days Time of Disposition: 18:08
[2021-07-23] MEDS ORDERED: HYDROmorphone 0.5 MG/0.5 ML SYRINGE IVP STA ×2 (15:42→18:03)
[2021-07-23 15:57] LABS: Appearance,Urine Clear (Clear); Bilirubin,Urine Negative (Negative); Blood,Urine Negative (Negative); Color,Urine Yellow; Glucose,Urine (UA) Negative (Negative); Ketones,Urine Negative (Negative); Leukocyte Esterase,Urine Negative (Negative); Nitrite,Urine Negative (Negative); PH, Urine 5.5 (5.0-8.0); Protein,Urine Negative (Negative); Specific Gravity,Urine 1.026 (1.001-1.035); Urobilinogen,Urine <2.0 mg/dL (<2.0)
[2021-07-23 15:57] LABS: ALT 13 U/L (4-34); AST 21 U/L (14-36); African American GFR (CKD) >90 (>60 ml/min/1.73 sqM); Alkaline Phosphatase 57 U/L (38-126); Anion Gap 12 mmol/L; Blood Urea Nitrogen 15 mg/dL (7-17); Calcium 8.9 mg/dL (8.4-10.2); Carbon Dioxide 18 mmol/L (22-30); Chloride 108 mmol/L (98-107); Glucose 91 mg/dL (74-99); Lipase 237 U/L (23-300); Non-African American GFR(CKD) >90 (>60 ml/min/1.73 sqM); Potassium 3.7 mmol/L (3.5-5.1); Sodium 138 mmol/L (137-145); Total Bilirubin 0.5 mg/dL (0.2-1.3); Total Protein 7.1 g/dL (6.3-8.2)
[2021-07-23 16:17] LABS: Anisocytosis Slight; Basophils # (A) 0.1 k/uL (0-0.2); Basophils % (A) 1 %; Eosinophils % (A) 1 %; HCT 40.9 % (34.0-46.0); HGB 11.4 gm/dL (11.4-16.0); Hypochromasia Marked; Lymphocytes # (A) 1.6 k/uL (1.0-4.8); Lymphocytes % (A) 18 %; MCH 25.9 pg (25.0-35.0); Mean Platelet Volume 7.8; Monocytes # (A) 0.5 k/uL (0-1.0); Monocytes % (A) 6 %; Neutrophils # (A) 6.6 k/uL (1.3-7.7); Neutrophils % (A) 73 %; Platelet Count 250 k/uL (150-450); RBC 4.41 m/uL (3.80-5.40); RDW 17.6 % (11.5-15.5)
[2021-07-23 16:18] LABS: MCV 92.8 fL (80.0-100.0)
--- NOTE | 2021-07-23 17:56 | US ---
EXAMINATION TYPE: US transvaginal DATE OF EXAM: 07/23/2021 COMPARISON: NONE CLINICAL HISTORY: ovarian torsion. LLQ pain TECHNIQUE: Transvaginal (TV). EXAM MEASUREMENTS: Uterus: 6.3 x 2.9 x 5.7 cm Endometrial Stripe: .8 cm 1. Uterus: Anteverted wnl 2. Endometrium: wnl 3. Right Ovary: Obscured by overlying bowel gas 4. Left Ovary: Obscured by overlying bowel gas 5. Bilateral Adnexa: wnl 6. Posterior cul-de-sac: wnl IMPRESSION: Normal uterus and endometrium. Ovaries not seen. No adnexal mass. No free fluid.
[2021-07-23] MEDS ORDERED: ACET/COD 300 MG/30 MG STARTER PACK 6 TAB BTL PO STA (18:04)
[2021-07-23 19:10] VITALS: BP 132/107
== END 2021-07-23 19:14 | disposition home or self-care (01) ==
LOC: EC 12:48
DX: R10.9 Unspecified abdominal pain (principal); R11.2 Nausea with vomiting, unspecified; F17.200 Nicotine dependence, unspecified, uncomplicated; I10 Essential (primary) hypertension; Z91.041 Radiographic dye allergy status; Z88.8 Allergy status to other drugs, medicaments and biological substances; Z88.6 Allergy status to analgesic agent; Z91.040 Latex allergy status; Z88.1 Allergy status to other antibiotic agents; Z87.19 Personal history of other diseases of the digestive system; Z79.899 Other long term (current) drug therapy
CPT/HCPCS: 36415; 80053; 83605; 83690; 83735; 85025; 82272; 81003; 76830; 99285; 96374; 96375; 96376; 96361; J2405; J1170

== ENCOUNTER 2021-07-26 19:54 | Emergency (ER) | payer MEDICARE, OTHER ==
[2021-07-26 21:31] VITALS: BP 123/74; TEMP 98
[2021-07-27] MEDS ORDERED: diphenhydrAMINE 50 MG/ML 1 ML VIAL IVP STA (04:15)
[2021-07-27] MEDS ORDERED: SODIUM CHLORIDE 0.9% 1,000 ML IV STA (04:15)
[2021-07-27] MEDS ORDERED: MORPHINE SULFATE 4 MG/ML SYRINGE IVP STA (04:15)
[2021-07-27] MEDS ORDERED: ORPHENADRINE 30 MG/ML 2 ML VIAL IVP STA (04:15)
[2021-07-27] MEDS ORDERED: PROCHLORPERAZINE INJ 10 MG/2 ML VIAL IVP STA (04:15)
--- NOTE | 2021-07-27 04:16 | ED ---
Headache HPI - General Chief Complaint: Headache Stated Complaint: headache Time Seen by Provider: 07/27/21 04:15 Source: RN notes reviewed, old records reviewed Mode of arrival: ambulatory Limitations: no limitations - History of Present Illness Initial Comments: This is a 36-year-old female to the ER for evaluation of headache. Patient has recently becoming well-known to our ER for recurrent evaluation and need for treatment of headache chronic migraines. Patient is without any new trauma noted fevers. Mild nausea no active vomiting versus light, ultrasound. This is just like her classic migraine headaches MD Complaint: headache, "migraine" -: days(s) Onset Description: gradual Location: right, left, temporal Severity: moderate Severity scale (1-10): 4 Quality: aching, throbbing Consistency: constant Improves With: nothing Worsens With: none Associated Symptoms: nausea, vomiting Other Symptoms: other (none) Treatments Prior to Arrival: none - Related Data Home Medications Medication Instructions Recorded Confirmed DULoxetine HCL [Cymbalta] 120 mg PO DAILY 08/13/20 07/23/21 Gabapentin 800 mg PO QID 08/13/20 07/23/21 Methocarbamol [Robaxin-750] 750 mg PO TID PRN 08/13/20 07/23/21 Prazosin [Minipress] 5 mg PO HS 08/13/20 07/23/21 hydrOXYzine pamoate [Vistaril] 50 mg PO QID 08/13/20 07/23/21 traZODone HCL 300 mg PO HS 08/13/20 07/23/21 Cariprazine HCl [Vraylar] 4.5 mg PO DAILY 07/22/21 07/23/21 Divalproex ER [Depakote ER] 500 mg PO BID 07/22/21 07/23/21 OLANZapine [ZyPREXA] 10 mg PO BID 07/22/21 07/23/21 Ondansetron [Zofran] 4 mg PO Q8HR PRN 07/22/21 07/23/21 Previous Rx's Medication Instructions Recorded Ondansetron Odt [Zofran ODT] 4 mg PO Q8HR PRN #10 tab 07/22/21 Promethazine [Phenergan] 25 mg PO Q6HR PRN #20 tablet 07/23/21 Allergies Allergy/AdvReac Type Severity Reaction Status Date / Time Iodinated Contrast Media Allergy Rash/Hives Verified 08/13/21 15:17 iodine Allergy Rash/Hives Verified 08/13/21 15:17 ketorolac [From Toradol] Allergy Anaphylaxis Verified 08/13/21 15:17 latex Allergy Anaphylaxis Verified 08/13/21 15:17 metoclopramide [From Reglan] Allergy Unknown Verified 08/13/21 15:17 prochlorperazine Allergy Unknown Verified 08/13/21 15:17 [From Compazine] sumatriptan [From Imitrex] Allergy Unknown Verified 08/13/21 15:17 vancomycin AdvReac red man Verified 08/13/21 15:17 syndrome Review of Systems ROS Statement: Those systems with pertinent positive or pertinent negative responses have been documented in the HPI. ROS Other: All systems not noted in ROS Statement are negative. Past Medical History Past Medical History: Seizure Disorder Additional Past Medical History / Comment(s): intracranial hypertension, colitis, gastritis History of Any Multi-Drug Resistant Organisms: MRSA Date of last positivie culture/infection: L ear MDRO Source:: 2011 Past Surgical History: Back Surgery Additional Past Surgical History / Comment(s): brain shunt Past Psychological History: Bipolar, PTSD Smoking Status: Current every day smoker Past Alcohol Use History: None Reported Past Drug Use History: Marijuana General Exam Limitations: no limitations General appearance: alert, in no apparent distress Head exam: Present: atraumatic, normocephalic, normal inspection Eye exam: Present: normal appearance, PERRL, EOMI. Absent: scleral icterus, conjunctival injection, periorbital swelling ENT exam: Present: normal exam, mucous membranes moist Neck exam: Present: normal inspection. Absent: tenderness, meningismus, lymphadenopathy Respiratory exam: Present: normal lung sounds bilaterally. Absent: respiratory distress, wheezes, rales, rhonchi, stridor Cardiovascular Exam: Present: regular rate, normal rhythm, normal heart sounds. Absent: systolic murmur, diastolic murmur, rubs, gallop, clicks GI/Abdominal exam: Present: soft, normal bowel sounds. Absent: distended, tenderness, guarding, rebound, rigid Extremities exam: Present: normal inspection, full ROM, normal capillary refill. Absent: tenderness, pedal edema, joint swelling, calf tenderness Back exam: Present: normal inspection Neurological exam: Present: alert, oriented X3, CN II-XII intact Psychiatric exam: Present: normal affect, normal mood Skin exam: Present: warm, dry, intact, normal color. Absent: rash Course Vital Signs 07/26/21 07/27/21 21:29 06:24 Temperature 98.0 F Pulse Rate 87 71 Respiratory 20 18 Rate Blood Pressure 123/74 123/74 O2 Sat by Pulse 100 95 Oximetry - Reevaluation(s) Reevaluation #1: 07/27/21 Medical records reviewed Patient informed results and questions answered Patient symptoms are improved here in the emergency department Medical Decision Making - Medical Decision Making 36 female to the emergency department for evaluation of headache patient's headache is resolved here in the ER and can be discharged home for further treatment on outpatient basis. Disposition Clinical Impression: Headache, Acute headache Disposition: HOME SELF-CARE Condition: Good Instructions (If sedation given, give patient instructions): Acute Headache (ED) Is patient prescribed a controlled substance at d/c from ED?: No Referrals: None,Stated [Primary Care Provider] - 1-2 days
[2021-07-27] MEDS ORDERED: HYDROmorphone 1 MG/ML 1 ML SYRINGE IVP STA (04:25)
[2021-07-27] MEDS ORDERED: ONDANSETRON ODT 4 MG TAB PO STA (04:43)
[2021-07-27] MEDS ORDERED: HYDROmorphone 1 MG/ML 1 ML SYRINGE IM STA (04:43)
[2021-07-27] MEDS ORDERED: diphenhydrAMINE 50 MG CAP PO STA (04:43)
[2021-07-27] MEDS ORDERED: CYCLOBENZAPRINE 10 MG TAB PO STA (05:00)
[2021-07-27] MEDS ORDERED: ONDANSETRON 4 MG ODT STARTER PACK 2 TAB BTL PO STA (05:23)
[2021-07-27 06:26] VITALS: PULSE 71; RESP 18
== END 2021-07-27 06:26 | disposition home or self-care (01) ==
LOC: EC 19:54
DX: R51.9 Headache, unspecified (principal); R11.2 Nausea with vomiting, unspecified; F17.200 Nicotine dependence, unspecified, uncomplicated; I10 Essential (primary) hypertension; Z88.8 Allergy status to other drugs, medicaments and biological substances; Z91.041 Radiographic dye allergy status; Z91.040 Latex allergy status; Z88.6 Allergy status to analgesic agent; Z88.1 Allergy status to other antibiotic agents; Z79.899 Other long term (current) drug therapy
CPT/HCPCS: 99283; 96372; J1170

== ENCOUNTER 2021-07-29 22:55 | Emergency (ER) | payer MEDICARE, OTHER ==
[2021-07-30 00:29] VITALS: TEMP 98.1
--- NOTE | 2021-07-30 04:02 | ED ---
Psych HPI - General Chief Complaint: Psychiatric Symptoms Stated Complaint: abdominal pain Time Seen by Provider: 07/30/21 01:17 Source: patient, RN notes reviewed, old records reviewed Mode of arrival: ambulatory Limitations: no limitations - History of Present Illness Initial Comments: This is a 36-year-old female to the emergency department for evaluation. Patient initially did have some abdominal pain that is resolved is currently happening here in the ER now she has left-sided abdominal pain history of left- sided ovarian cyst and torsion with surgery. Patient thinks she has recurrent cyst asking for something for pain. She admits to suicide and depression although now on evaluation she denying suicidal thoughts and depression and just wants pain control and discharged MD Complaint: suicidal ideation (Denies), feels depressed (States she always has episodically depressed) -: unknown Associated Psychiatric Symptoms: depression, suicidal ideation (Denies) History of same: Yes Quality: intermittent Improves With: none Worsens With: none Associated Symptoms: denies other symptoms Treatments Prior to Arrival: none - Related Data Home Medications Medication Instructions Recorded Confirmed DULoxetine HCL [Cymbalta] 120 mg PO DAILY 08/13/20 07/23/21 Gabapentin 800 mg PO QID 08/13/20 07/23/21 Methocarbamol [Robaxin-750] 750 mg PO TID PRN 08/13/20 07/23/21 Prazosin [Minipress] 5 mg PO HS 08/13/20 07/23/21 hydrOXYzine pamoate [Vistaril] 50 mg PO QID 08/13/20 07/23/21 traZODone HCL 300 mg PO HS 08/13/20 07/23/21 Cariprazine HCl [Vraylar] 4.5 mg PO DAILY 07/22/21 07/23/21 Divalproex ER [Depakote ER] 500 mg PO BID 07/22/21 07/23/21 OLANZapine [ZyPREXA] 10 mg PO BID 07/22/21 07/23/21 Ondansetron [Zofran] 4 mg PO Q8HR PRN 07/22/21 07/23/21 Previous Rx's Medication Instructions Recorded Ondansetron Odt [Zofran ODT] 4 mg PO Q8HR PRN #10 tab 07/22/21 Promethazine [Phenergan] 25 mg PO Q6HR PRN #20 tablet 07/23/21 Allergies Allergy/AdvReac Type Severity Reaction Status Date / Time Iodinated Contrast Media Allergy Rash/Hives Verified 07/30/21 00:29 iodine Allergy Rash/Hives Verified 07/30/21 00:29 ketorolac [From Toradol] Allergy Anaphylaxis Verified 07/30/21 00:29 latex Allergy Anaphylaxis Verified 07/30/21 00:29 metoclopramide [From Reglan] Allergy Unknown Verified 07/30/21 00:29 prochlorperazine Allergy Unknown Verified 07/30/21 00:29 [From Compazine] sumatriptan [From Imitrex] Allergy Unknown Verified 07/30/21 00:29 vancomycin AdvReac red man Verified 07/30/21 00:29 syndrome Review of Systems ROS Statement: Those systems with pertinent positive or pertinent negative responses have been documented in the HPI. ROS Other: All systems not noted in ROS Statement are negative. Past Medical History Past Medical History: Seizure Disorder Additional Past Medical History / Comment(s): intracranial hypertension, colitis, gastritis History of Any Multi-Drug Resistant Organisms: MRSA Date of last positivie culture/infection: L ear MDRO Source:: 2011 Past Surgical History: Back Surgery Additional Past Surgical History / Comment(s): brain shunt Past Psychological History: Bipolar, PTSD Smoking Status: Current every day smoker Past Alcohol Use History: None Reported Past Drug Use History: Marijuana General Exam General appearance: alert, in no apparent distress, anxious Head exam: Present: atraumatic, normocephalic, normal inspection Eye exam: Present: normal appearance, PERRL, EOMI. Absent: scleral icterus, conjunctival injection, periorbital swelling ENT exam: Present: normal exam, mucous membranes moist Neck exam: Present: normal inspection. Absent: tenderness, meningismus, lymphadenopathy Respiratory exam: Present: normal lung sounds bilaterally. Absent: respiratory distress, wheezes, rales, rhonchi, stridor Cardiovascular Exam: Present: normal rhythm, tachycardia, normal heart sounds. Absent: systolic murmur, diastolic murmur, rubs, gallop, clicks GI/Abdominal exam: Present: soft, normal bowel sounds. Absent: distended, tenderness, guarding, rebound, rigid Extremities exam: Present: normal inspection, full ROM, normal capillary refill. Absent: tenderness, pedal edema, joint swelling, calf tenderness Back exam: Present: normal inspection Neurological exam: Present: alert, oriented X3, CN II-XII intact Psychiatric exam: Present: normal affect, normal mood Skin exam: Present: warm, dry, intact, normal color. Absent: rash Course Vital Signs 07/30/21 07/30/21 07/30/21 00:27 04:03 05:40 Temperature 98.1 F Pulse Rate 110 H 77 72 Respiratory 20 18 18 Rate Blood Pressure 114/68 115/74 164/72 O2 Sat by Pulse 100 97 98 Oximetry - Reevaluation(s) Reevaluation #1: 07/30/21 04:30 Medical record is reviewed Reevaluation #2: 07/30/21 04:30 Patient has pain control Medical Decision Making - Medical Decision Making 36 female to the emergency department for evaluation presented for abdominal pain and pain control regarding ovarian cyst. Patient then did admit to some depression but currently not suicidal does not want psychiatric evaluation. Patient not doing drugs or alcohol can be discharged home Disposition Clinical Impression: Abdominal pain Disposition: HOME SELF-CARE Condition: Fair Instructions (If sedation given, give patient instructions): Abdominal Pain (ED) Is patient prescribed a controlled substance at d/c from ED?: No Referrals: None,Stated [Primary Care Provider] - 1-2 days
[2021-07-30 04:05] VITALS: RESP 18
[2021-07-30] MEDS ORDERED: Acetaminophen-Codeine 300-30mg TAB PO STA (05:23)
[2021-07-30 05:42] VITALS: BP 164/72; PULSE 72
== END 2021-07-30 05:52 | disposition home or self-care (01) ==
LOC: EC 22:55
DX: R10.9 Unspecified abdominal pain (principal); I10 Essential (primary) hypertension; F17.200 Nicotine dependence, unspecified, uncomplicated; Z91.040 Latex allergy status; Z91.041 Radiographic dye allergy status; Z88.6 Allergy status to analgesic agent; Z88.9 Allergy status to unspecified drugs, medicaments and biological substances
CPT/HCPCS: 99284

== ENCOUNTER 2021-08-03 15:24 | Emergency (ER) | payer MEDICARE, OTHER ==
[2021-08-03 15:39] VITALS: BP 102/61; PULSE 108; RESP 16; TEMP 98.3
[2021-08-03] MEDS ORDERED: ONDANSETRON 4 MG/2 ML VIAL IM STA (16:28)
--- NOTE | 2021-08-03 16:35 | CT ---
EXAMINATION TYPE: CT brain lonnieine wo con DATE OF EXAM: 08/03/2021 COMPARISON: CT dated 07/18/2021 HISTORY: Fall, LOC, SHER CT DLP: 1580.7 mGycm Automated exposure control for dose reduction was used. TECHNIQUE: CT scan of the head and cervical spine are performed without contrast. FINDINGS: Brain: Relatively crowded posterior fossa with obliteration of the CSF spaces mainly the basal cisterns whic h may suggest an intracranial hypotension, stable compared to the previous. Please correlate clinical ly. Unchanged position of the right trans-frontoparietal [employer] shunt. No supra and infratentorial ventri cular dilatation. No intracranial hemorrhage or gross acute cortical infarct. No midline shift or herniation. Unremarka ble sella and CP angles. No gross space-occupying lesion, vasogenic edema or mass effect. No gross or bital abnormality. Clear visualized paranasal sinuses and mastoid air cells. No definite acute calvar ial bone fracture identified. Cervical spine: Linear soft tissue calcification is seen at the posterior aspect of C2. Preserved cervical curvature. No significant anterolisthesis or retrolisthesis. No definite vertebral body collapse or acute displ aced fracture. Unremarkable atlantoaxial and atlantooccipital articulations. No facet dislocation or significant subluxation. C5-6 opposing endplate osteophytosis. Right C7-T1 fa cet osteoarthropathy. Mild bony spinal canal stenosis at C5-6 level, otherwise no significant bony ce ntral spinal canal stenosis or bony neuroforaminal stenosis. No paraspinal lesion. IMPRESSION: 1. No acute intracranial posttraumatic sequela or acute calvarial bone fracture. 2. Stable signs suggestive intracranial hypotension, please correlate clinically. 3. No acute traumatic bony injury of the cervical spine. Incidental findings as described above.
[2021-08-03] MEDS ORDERED: diphenhydrAMINE 50 MG CAP PO STA (17:05)
--- NOTE | 2021-08-03 17:05 | ED ---
Fall HPI - General Chief Complaint: Fall Stated Complaint: Fall down stairs Time Seen by Provider: 08/03/21 15:48 Source: patient Mode of arrival: wheelchair - History of Present Illness Initial Comments: Patient is a 36-year-old female who presents to the emergency department with chief complaint of fall. Patient states that she tripped down a couple steps at her home and hit her head on the tile. Patient reports she did not lose consciousness although the triage note states that she did. She is not on blood thinners. Patient reports a headache on the right side of her head. She denies injury or pain from the fall. She has no other concerns at this time including fever, chills, headache, shortness of breath, cough, chest pain, dizziness, lightheadedness, abdominal pain, nausea, vomiting, and burning with urination. - Related Data Home Medications Medication Instructions Recorded Confirmed DULoxetine HCL [Cymbalta] 120 mg PO DAILY 08/13/20 07/23/21 Gabapentin 800 mg PO QID 08/13/20 07/23/21 Methocarbamol [Robaxin-750] 750 mg PO TID PRN 08/13/20 07/23/21 Prazosin [Minipress] 5 mg PO HS 08/13/20 07/23/21 hydrOXYzine pamoate [Vistaril] 50 mg PO QID 08/13/20 07/23/21 traZODone HCL 300 mg PO HS 08/13/20 07/23/21 Cariprazine HCl [Vraylar] 4.5 mg PO DAILY 07/22/21 07/23/21 Divalproex ER [Depakote ER] 500 mg PO BID 07/22/21 07/23/21 OLANZapine [ZyPREXA] 10 mg PO BID 07/22/21 07/23/21 Ondansetron [Zofran] 4 mg PO Q8HR PRN 07/22/21 07/23/21 Previous Rx's Medication Instructions Recorded Ondansetron Odt [Zofran ODT] 4 mg PO Q8HR PRN #10 tab 07/22/21 Promethazine [Phenergan] 25 mg PO Q6HR PRN #20 tablet 07/23/21 Allergies Allergy/AdvReac Type Severity Reaction Status Date / Time Iodinated Contrast Media Allergy Rash/Hives Verified 08/03/21 15:39 iodine Allergy Rash/Hives Verified 08/03/21 15:39 ketorolac [From Toradol] Allergy Anaphylaxis Verified 08/03/21 15:39 latex Allergy Anaphylaxis Verified 08/03/21 15:39 metoclopramide [From Reglan] Allergy Unknown Verified 08/03/21 15:39 prochlorperazine Allergy Unknown Verified 08/03/21 15:39 [From Compazine] sumatriptan [From Imitrex] Allergy Unknown Verified 08/03/21 15:39 vancomycin AdvReac red man Verified 08/03/21 15:39 syndrome Review of Systems ROS Statement: Those systems with pertinent positive or pertinent negative responses have been documented in the HPI. ROS Other: All systems not noted in ROS Statement are negative. Past Medical History Past Medical History: Seizure Disorder Additional Past Medical History / Comment(s): intracranial hypertension, colitis, gastritis History of Any Multi-Drug Resistant Organisms: MRSA Date of last positivie culture/infection: L ear MDRO Source:: 2011 Past Surgical History: Back Surgery Additional Past Surgical History / Comment(s): brain shunt Past Psychological History: Bipolar, PTSD Smoking Status: Current every day smoker Past Alcohol Use History: None Reported Past Drug Use History: Marijuana General Exam Limitations: no limitations General appearance: alert, in no apparent distress Head exam: Present: atraumatic, normocephalic, normal inspection (Patient has right-sided intracranial shunt, no surrounding swelling or erythema in the area) Eye exam: Present: normal appearance, PERRL, EOMI. Absent: scleral icterus, conjunctival injection, periorbital swelling Neck exam: Present: normal inspection, full ROM. Absent: tenderness Respiratory exam: Present: normal lung sounds bilaterally. Absent: respiratory distress, wheezes, rales, rhonchi, stridor Cardiovascular Exam: Present: regular rate, normal rhythm, normal heart sounds. Absent: systolic murmur, diastolic murmur, rubs, gallop, clicks GI/Abdominal exam: Present: soft, normal bowel sounds. Absent: distended, tenderness, guarding, rebound, rigid Extremities exam: Present: normal inspection Back exam: Present: normal inspection, full ROM. Absent: tenderness Neurological exam: Present: alert, oriented X3, CN II-XII intact Psychiatric exam: Present: normal affect, normal mood Skin exam: Present: warm, dry, intact, normal color. Absent: rash Course Vital Signs 08/03/21 15:33 Temperature 98.3 F Pulse Rate 108 H Respiratory 16 Rate Blood Pressure 102/61 O2 Sat by Pulse 100 Oximetry Medical Decision Making - Medical Decision Making This is a 36-year-old female who presents with a headache due to the fall today. Thorough history and examination were performed. CT of the brain and C-spine without contrast was obtained which shows no acute intracranial posttraumatic sequela, no aucte calvarial bone fracture, and no acute traumatic bony injury of the cervical spine. Patient did experience one episode of vomiting after CT scan. Zofran was given. Patient requested dilaudid or morphine for headache. I informed patient that due to low blood pressure I am unable to give her morphine and that I do not feel comfortable giving her Dilaudid for headache as patient has been evaluated several times this month in emergency department where she has received narcotics numerous times. She was given Tylenol with Codeine and Benadryl. Patient requested that Benadryl be given IM which I approved. She confirmed she is not driving home. Patient offered Zofran prescription however reports that she has Zofran and Phenergan prescription at home from her previous visits. Return parameters discussed. Patient verbalizes understanding and is agreeable to plan. Dr. Watt is my attending. Disposition Clinical Impression: Fall Disposition: HOME SELF-CARE Condition: Good Instructions (If sedation given, give patient instructions): Fall Prevention (ED) Additional Instructions: Please take your previously prescribed nausea medications as directed. You may take Tylenol or Motrin as needed for pain. Return to the emergency department if you experience new, concerning, or worsening symptoms. Is patient prescribed a controlled substance at d/c from ED?: No Referrals: None,Stated [Primary Care Provider] - 1-2 days Time of Disposition: 17:10
[2021-08-03] MEDS ORDERED: Acetaminophen-Codeine 300-30mg TAB PO STA (17:06)
[2021-08-03] MEDS ORDERED: diphenhydrAMINE 50 MG/ML 1 ML VIAL IM STA (17:09)
== END 2021-08-03 17:33 | disposition home or self-care (01) ==
LOC: EC 15:24
DX: R11.10 Vomiting, unspecified (principal); R51.9 Headache, unspecified; I10 Essential (primary) hypertension; F17.200 Nicotine dependence, unspecified, uncomplicated; Z91.041 Radiographic dye allergy status; Z88.6 Allergy status to analgesic agent; Z91.040 Latex allergy status; Z88.8 Allergy status to other drugs, medicaments and biological substances; Z88.9 Allergy status to unspecified drugs, medicaments and biological substances; Z88.1 Allergy status to other antibiotic agents; W00.1XXA Fall from stairs and steps due to ice and snow, initial encounter
CPT/HCPCS: 72125; 70450; 99284; 96372; J1200; J2405

== ENCOUNTER 2021-08-08 20:41 | Emergency (ER) | payer MEDICARE, OTHER ==
[2021-08-08 21:34] VITALS: BP 134/85; PULSE 100; RESP 18; TEMP 97.7
--- NOTE | 2021-08-08 22:14 | CT ---
EXAMINATION TYPE: CT brain wo con DATE OF EXAM: 08/08/2021 COMPARISON: 08/03/2021 HISTORY: headaches CT DLP: 1088.4 mGycm Automated exposure control for dose reduction was used. Ventricles have normal size. There is no mass effect or midline shift. There is no sign of intracrani al hemorrhage. There is a right-sided ventricular shunt catheter with the tip in the frontal horn lef t lateral ventricle. No hydrocephalus. Calvarium is intact. Skull base is intact. There is normal aer ation of the mastoid sinuses. IMPRESSION: No acute intracranial abnormality. No hydrocephalus. No change compared to recent exam.
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
[2021-08-09] MEDS: SODIUM CHLORIDE 0.9% 1,000 ML IV STA ×2 (02:37→03:25)
[2021-08-09] MEDS: diphenhydrAMINE 50 MG/ML 1 ML VIAL IVP STA ×2 (02:39→03:24)
[2021-08-09] MEDS: ONDANSETRON 4 MG/2 ML VIAL IVP STA ×2 (02:39→03:25)
[2021-08-09] MEDS ORDERED: HYDROmorphone 1 MG/ML 1 ML SYRINGE IVP STA (02:55)
[2021-08-09] MEDS ORDERED: diphenhydrAMINE 50 MG CAP PO STA (03:14)
[2021-08-09] MEDS ORDERED: PROCHLORPERAZINE 10 MG TAB PO STA (03:14)
[2021-08-09] MEDS ORDERED: HYDROmorphone 1 MG/ML 1 ML SYRINGE IM STA (03:14)
[2021-08-09 03:24] LABS: Appearance,Urine Clear (Clear); Bilirubin,Urine Negative (Negative); Blood,Urine Negative (Negative); Color,Urine Yellow; Glucose,Urine (UA) Negative (Negative); Ketones,Urine Negative (Negative); Leukocyte Esterase,Urine Negative (Negative); Nitrite,Urine Negative (Negative); Protein,Urine Negative (Negative); Specific Gravity,Urine 1.029 (1.001-1.035); Urobilinogen,Urine <2.0 mg/dL (<2.0)
== END 2021-08-09 04:35 | disposition home or self-care (01) ==
LOC: EC 20:41
DX: R51.9 Headache, unspecified (principal); F17.200 Nicotine dependence, unspecified, uncomplicated; I10 Essential (primary) hypertension; Z91.041 Radiographic dye allergy status; Z88.6 Allergy status to analgesic agent; Z91.040 Latex allergy status; Z88.9 Allergy status to unspecified drugs, medicaments and biological substances
CPT/HCPCS: 81003; 70450; 99284; 96372; J1170; J1790

== ENCOUNTER 2021-08-12 07:56 | Emergency (ER) | payer MEDICARE, OTHER ==
[2021-08-12 08:03] VITALS: BP 116/71; PULSE 108; RESP 18; TEMP 97.7
[2021-08-12] MEDS ORDERED: diphenhydrAMINE 50 MG/ML 1 ML VIAL IVP STA (08:16)
[2021-08-12] MEDS ORDERED: IBUPROFEN IV 600 MG in SODIUM CHLORIDE 0.9% 250 ML IV STA (08:16)
--- NOTE | 2021-08-12 08:49 | ED ---
General Adult HPI - General Chief complaint: Headache Stated complaint: Headache Time Seen by Provider: 08/12/21 08:00 Source: patient, RN notes reviewed, old records reviewed Mode of arrival: ambulatory Limitations: no limitations - History of Present Illness Initial comments: This is a 36-year-old female presents emergency department stating that she has a headache again. He states she gets them quite often. Patient states she has a STEREOTYPER APPRENTICE shunt. Patient states she took a [place] and Tylenol and Motrin as last night. Patient states she took Tylenol this morning but no Motrin or [place] this morning. Patient states is her typical headache that she always gets. Patient states she is also somewhat nauseated. Patient states she thinks she might had a seizure this morning 2 but when she describes it to me she never lost consciousness so she is not sure. She had a seizure. Patient states she is on Depakote. Patient denies any fever chills or cough. Patient denies chest pain difficulty breathing shortness breath per patient has abdominal pain patient denies any vomiting but states she is nauseous. - Related Data Home Medications Medication Instructions Recorded Confirmed DULoxetine HCL [Cymbalta] 120 mg PO DAILY 08/13/20 07/23/21 Gabapentin 800 mg PO QID 08/13/20 07/23/21 Methocarbamol [Robaxin-750] 750 mg PO TID PRN 08/13/20 07/23/21 Prazosin [Minipress] 5 mg PO HS 08/13/20 07/23/21 hydrOXYzine pamoate [Vistaril] 50 mg PO QID 08/13/20 07/23/21 traZODone HCL 300 mg PO HS 08/13/20 07/23/21 Cariprazine HCl [Vraylar] 4.5 mg PO DAILY 07/22/21 07/23/21 Divalproex ER [Depakote ER] 500 mg PO BID 07/22/21 07/23/21 OLANZapine [ZyPREXA] 10 mg PO BID 07/22/21 07/23/21 Ondansetron [Zofran] 4 mg PO Q8HR PRN 07/22/21 07/23/21 Previous Rx's Medication Instructions Recorded Ondansetron Odt [Zofran ODT] 4 mg PO Q8HR PRN #10 tab 07/22/21 Promethazine [Phenergan] 25 mg PO Q6HR PRN #20 tablet 07/23/21 Allergies Allergy/AdvReac Type Severity Reaction Status Date / Time Iodinated Contrast Media Allergy Rash/Hives Verified 08/12/21 08:03 iodine Allergy Rash/Hives Verified 08/12/21 08:03 ketorolac [From Toradol] Allergy Anaphylaxis Verified 08/12/21 08:03 latex Allergy Anaphylaxis Verified 08/12/21 08:03 metoclopramide [From Reglan] Allergy Unknown Verified 08/12/21 08:03 prochlorperazine Allergy Unknown Verified 08/12/21 08:03 [From Compazine] sumatriptan [From Imitrex] Allergy Unknown Verified 08/12/21 08:03 vancomycin AdvReac red man Verified 08/12/21 08:03 syndrome Review of Systems ROS Statement: Those systems with pertinent positive or pertinent negative responses have been documented in the HPI. ROS Other: All systems not noted in ROS Statement are negative. Past Medical History Past Medical History: Seizure Disorder Additional Past Medical History / Comment(s): intracranial hypertension, colitis, gastritis History of Any Multi-Drug Resistant Organisms: MRSA Date of last positivie culture/infection: L ear MDRO Source:: 2011 Past Surgical History: Back Surgery Additional Past Surgical History / Comment(s): brain shunt Past Psychological History: Bipolar, PTSD Smoking Status: Current every day smoker Past Alcohol Use History: None Reported Past Drug Use History: Marijuana General Exam - General Exam Comments Initial Comments: GENERAL: Patient is well-developed and well-nourished. Patient is nontoxic and well- hydrated and is in no acute distress. ENT: Neck is soft and supple. No significant lymphadenopathy is noted. Oropharynx is clear. Moist mucous membranes. Neck has full range of motion without eliciting any pain. EYES: The sclera were anicteric and conjunctiva were pink and moist. Extraocular movements were intact and pupils were equal round and reactive to light. Eyelids were unremarkable. PULMONARY: Unlabored respirations. Good breath sounds bilaterally. No audible rales rhonchi or wheezing was noted. CARDIOVASCULAR: There is a regular rate and rhythm without any murmurs gallops or rubs. ABDOMEN: Soft and nontender with normal bowel sounds. SKIN: Skin is clear with no lesions or rashes and otherwise unremarkable. NEUROLOGIC: Patient is alert and oriented x3. Cranial nerves II through XII are grossly intact. Motor and sensory are also intact. Normal speech, volume and content. Symmetrical smile. MUSCULOSKELETAL: Normal extremities with adequate strength and full range of motion. LYMPHATICS: No significant lymphadenopathy is noted PSYCHIATRIC: Normal psychiatric evaluation. Limitations: no limitations Course Vital Signs 08/12/21 08:00 Temperature 97.7 F Pulse Rate 108 H Respiratory 18 Rate Blood Pressure 116/71 O2 Sat by Pulse 100 Oximetry Medical Decision Making - Medical Decision Making I told the patient I will be checking some blood work including a Depakote level. I told the patient we will be giving her Motrin IV Benadryl and droperidol for the nausea and pain. Patient indicated she wanted her contacts I told her she would not be getting any narcotics here. I left the room and shortly thereafter the nurse informed me that the patient left AMA Disposition Clinical Impression: Drug-seeking behavior, Headache Disposition: Left Against Medical Advice Referrals: None,Stated [Primary Care Provider] - 1-2 days Time of Disposition: 08:48
== END 2021-08-12 08:10 | disposition left against medical advice (07) ==
LOC: EC 07:56
DX: Z76.5 Malingerer [conscious simulation] (principal); R51.9 Headache, unspecified; I10 Essential (primary) hypertension; F17.200 Nicotine dependence, unspecified, uncomplicated; Z91.040 Latex allergy status; Z91.041 Radiographic dye allergy status; Z88.6 Allergy status to analgesic agent; Z88.8 Allergy status to other drugs, medicaments and biological substances; Z88.9 Allergy status to unspecified drugs, medicaments and biological substances
CPT/HCPCS: 99284

== ENCOUNTER 2021-08-13 15:09 | Emergency (ER) | payer MEDICARE, OTHER ==
[2021-08-13 15:17] VITALS: TEMP 98.1
[2021-08-13] MEDS ORDERED: SODIUM CHLORIDE 0.9% 1,000 ML IV STA (15:23)
[2021-08-13] MEDS ORDERED: ONDANSETRON 4 MG/2 ML VIAL IVP STA (15:46)
[2021-08-13] MEDS ORDERED: diphenhydrAMINE 50 MG/ML 1 ML VIAL IVP STA (15:47)
[2021-08-13] MEDS ORDERED: FAMOTIDINE 20 MG/2 ML VIAL IV STA (15:47)
[2021-08-13] MEDS ORDERED: methylPREDNISolone SOD SUCCI 125 MG/2 ML VIAL IV STA (15:47)
--- NOTE | 2021-08-13 15:51 | ED ---
General Adult HPI - General Chief complaint: Abdominal Pain Stated complaint: upper right abdomen pain, vomiting Time Seen by Provider: 08/13/21 15:21 Source: patient Mode of arrival: ambulatory Limitations: no limitations - History of Present Illness Initial comments: Dictation was produced using [employer] dictation software. please excuse any gramma tical, word or spelling errors. Chief Complaint: 36-year-old female presents to the emergency department for right-sided abdominal pain History of Present Illness: Is a 36-year-old female presents emergency department for right-sided abdominal pain. Patient has past medical history of seizure disorder, brain shunt. Patient has been in our emergency department multiple times over the last month. Since July this is her 10th visit. Patient states she has pain in her right side of her abdomen. She states that her pain is normal in the left. Patient states she does have fevers. She's been vomiting. Denies any diarrhea since the pain is constant and in her right abdomen. The ROS documented in this emergency department record has been reviewed and confirmed by me. Those systems with pertinent positive or negative responses have been documented in the HPI. All other systems are other negative and/or noncontributory. PHYSICAL EXAM: General Impression: Alert and oriented x3, not in acute distress, orange emesis at the bedside HEENT: Normocephalic atraumatic, extra-ocular movements intact, pupils equal and reactive to light bilaterally, mucous membranes moist. Cardiovascular: Heart regular rate and rhythm Chest: Able to complete full sentences, no retractions, no tachypnea Abdomen: abdomen soft, non-tender, non-distended, no organomegaly Musculoskeletal: Pulses present and equal in all extremities, no peripheral edema Motor: no focal deficits noted Neurological: CN II-XII grossly intact, no focal motor or sensory deficits noted Skin: Intact with no visualized rashes Psych: Normal affect and mood ED course: 36-year-old female presents emergency department for acute onset abdominal pain and vomiting. She does report constitutional symptoms. Patient has been R emergency department several times over the last 1 month. This is her 10th visit over the last 4 weeks. Vital signs upon arrival are within acceptable limits. Laboratory evaluation obtained. CBC, metabolic panel, abdominal labs are negative. Computed tomography scan of the abdomen and pelvis shows findings consistent with enteritis versus generalized ileus. There does appear to be some mild abdominal pelvic ascites with mild fat stranding throughout the peritoneum. Patient reevaluated at bedside at 6:00 PM. Her abdomen is soft. She is does not have any rigidity or peritoneal signs. States that she is having some mild diarrhea. Clinical presentation likely secondary to an radius versus generalized ileus. She does not have a primary care doctor. She is on her phone and in no acute distress. Patient not having any vomiting. Patient clinical stable. She'll be discharged. Patient given referrals to primary care doctors. - Related Data Home Medications Medication Instructions Recorded Confirmed DULoxetine HCL [Cymbalta] 120 mg PO DAILY 08/13/20 07/23/21 Gabapentin 800 mg PO QID 08/13/20 07/23/21 Methocarbamol [Robaxin-750] 750 mg PO TID PRN 08/13/20 07/23/21 Prazosin [Minipress] 5 mg PO HS 08/13/20 07/23/21 hydrOXYzine pamoate [Vistaril] 50 mg PO QID 08/13/20 07/23/21 traZODone HCL 300 mg PO HS 08/13/20 07/23/21 Cariprazine HCl [Vraylar] 4.5 mg PO DAILY 07/22/21 07/23/21 Divalproex ER [Depakote ER] 500 mg PO BID 07/22/21 07/23/21 OLANZapine [ZyPREXA] 10 mg PO BID 07/22/21 07/23/21 Ondansetron [Zofran] 4 mg PO Q8HR PRN 07/22/21 07/23/21 Previous Rx's Medication Instructions Recorded Ondansetron Odt [Zofran ODT] 4 mg PO Q8HR PRN #10 tab 07/22/21 Promethazine [Phenergan] 25 mg PO Q6HR PRN #20 tablet 07/23/21 Allergies Allergy/AdvReac Type Severity Reaction Status Date / Time Iodinated Contrast Media Allergy Rash/Hives Verified 08/13/21 15:17 iodine Allergy Rash/Hives Verified 08/13/21 15:17 ketorolac [From Toradol] Allergy Anaphylaxis Verified 08/13/21 15:17 latex Allergy Anaphylaxis Verified 08/13/21 15:17 metoclopramide [From Reglan] Allergy Unknown Verified 08/13/21 15:17 prochlorperazine Allergy Unknown Verified 08/13/21 15:17 [From Compazine] sumatriptan [From Imitrex] Allergy Unknown Verified 08/13/21 15:17 vancomycin AdvReac red man Verified 08/13/21 15:17 syndrome Review of Systems ROS Statement: Those systems with pertinent positive or pertinent negative responses have been documented in the HPI. ROS Other: All systems not noted in ROS Statement are negative. Past Medical History Past Medical History: Seizure Disorder Additional Past Medical History / Comment(s): intracranial hypertension, colitis, gastritis History of Any Multi-Drug Resistant Organisms: MRSA Date of last positivie culture/infection: L ear MDRO Source:: 2011 Past Surgical History: Back Surgery Additional Past Surgical History / Comment(s): brain shunt Past Psychological History: Bipolar, PTSD Smoking Status: Current every day smoker Past Alcohol Use History: None Reported Past Drug Use History: Marijuana General Exam Limitations: no limitations Course Vital Signs 08/13/21 15:12 Temperature 98.1 F Pulse Rate 106 H Respiratory 20 Rate Blood Pressure 104/70 O2 Sat by Pulse 100 Oximetry Medical Decision Making - Lab Data Result diagrams: 08/13/21 15:42 08/13/21 15:42 Lab Results 08/13/21 08/13/21 Range/Units 15:42 15:42 WBC 6.0 (3.8-10.6) k/uL RBC 4.16 (3.80-5.40) m/uL Hgb 11.1 L (11.4-16.0) gm/dL Hct 34.8 (34.0-46.0) % MCV 83.7 D (80.0-100.0) fL MCH 26.7 (25.0-35.0) pg MCHC 31.9 (31.0-37.0) g/dL RDW 18.3 H (11.5-15.5) % Plt Count 197 (150-450) k/uL MPV 9.5 Neutrophils % 66 % Lymphocytes % 19 % Monocytes % 7 % Eosinophils % 5 % Basophils % 0 % Neutrophils # 4.0 (1.3-7.7) k/uL Lymphocytes # 1.1 (1.0-4.8) k/uL Monocytes # 0.4 (0-1.0) k/uL Eosinophils # 0.3 (0-0.7) k/uL Basophils # 0.0 (0-0.2) k/uL Hypochromasia Moderate Anisocytosis Slight Sodium 139 (137-145) mmol/L Potassium 4.0 (3.5-5.1) mmol/L Chloride 108 H (98-107) mmol/L Carbon Dioxide 22 (22-30) mmol/L Anion Gap 9 mmol/L BUN 11 (7-17) mg/dL Creatinine 0.57 (0.52-1.04) mg/dL Est GFR (CKD-EPI)AfAm >90 (>60 ml/min/1.73 sqM) Est GFR (CKD-EPI)NonAf >90 (>60 ml/min/1.73 sqM) Glucose 83 (74-99) mg/dL Calcium 8.5 (8.4-10.2) mg/dL Total Bilirubin 0.4 (0.2-1.3) mg/dL AST 33 (14-36) U/L ALT 23 (4-34) U/L Alkaline Phosphatase 60 (38-126) U/L Total Protein 7.1 (6.3-8.2) g/dL Albumin 4.0 (3.5-5.0) g/dL Lipase 131 (23-300) U/L Disposition Clinical Impression: Enteritis Disposition: HOME SELF-CARE Condition: Good Instructions (If sedation given, give patient instructions): Opioid Use Disorder (ED), Enteritis (ED) Is patient prescribed a controlled substance at d/c from ED?: No Referrals: July Turcios MD [REFERRING] - 1-2 days Jessie Grider MD [STAFF PHYSICIAN] - 1-2 days Nadya Kearns MD [REFERRING] - 1-2 days Time of Disposition: 18:01
[2021-08-13 15:58] LABS: ALT 23 U/L (4-34); AST 33 U/L (14-36); African American GFR (CKD) >90 (>60 ml/min/1.73 sqM); Alkaline Phosphatase 60 U/L (38-126); Anion Gap 9 mmol/L; Blood Urea Nitrogen 11 mg/dL (7-17); Calcium 8.5 mg/dL (8.4-10.2); Carbon Dioxide 22 mmol/L (22-30); Chloride 108 mmol/L (98-107); Glucose 83 mg/dL (74-99); Lipase 131 U/L (23-300); Non-African American GFR(CKD) >90 (>60 ml/min/1.73 sqM); Sodium 139 mmol/L (137-145); Total Bilirubin 0.4 mg/dL (0.2-1.3); Total Protein 7.1 g/dL (6.3-8.2)
[2021-08-13 16:11] LABS: Anisocytosis Slight; Basophils % (A) 0 %; Eosinophils # (A) 0.3 k/uL (0-0.7); Eosinophils % (A) 5 %; HCT 34.8 % (34.0-46.0); HGB 11.1 gm/dL (11.4-16.0); Hypochromasia Moderate; Lymphocytes # (A) 1.1 k/uL (1.0-4.8); Lymphocytes % (A) 19 %; MCH 26.7 pg (25.0-35.0); MCHC 31.9 g/dL (31.0-37.0); Mean Platelet Volume 9.5; Monocytes # (A) 0.4 k/uL (0-1.0); Monocytes % (A) 7 %; Neutrophils % (A) 66 %; Platelet Count 197 k/uL (150-450); RBC 4.16 m/uL (3.80-5.40); RDW 18.3 % (11.5-15.5)
[2021-08-13 16:13] LABS: MCV 83.7 fL (80.0-100.0)
[2021-08-13] MEDS ORDERED: HYDROmorphone 0.5 MG/0.5 ML SYRINGE IVP STA ×2 (17:05→18:01)
--- NOTE | 2021-08-13 17:52 | CT ---
EXAMINATION TYPE: CT abdomen pelvis w con DATE OF EXAM: 08/13/2021 COMPARISON: 07/22/2021 HISTORY: 36-year-old female Abdominal pain, vomiting TECHNIQUE: Contiguous axial scanning of the abdomen and pelvis following administration of 100 ml Iso fernando 300 IV contrast. Delayed images through the kidneys and coronal/sagittal reconstructions perform ed. CT DLP: 1487.6 mGycm Automated exposure control for dose reduction was used. FINDINGS: Heart upper limits of normal in size without pericardial effusion. The some strandy atelect asis in the lower lungs without pleural effusion. Liver normal size. Nonspecific 1.3 cm hypodensity anterior left liver lobe centrally seen on prior st udy, probably some focal fat but indeterminate. Portal venous system is patent. No biliary ductal dil atation. Gallbladder, adrenal glands, kidneys, spleen, pancreas within normal limits. Some prominent fluid filled small bowel loops are present throughout the abdomen and pelvis. There is mild pelvic free fluid and also trace perihepatic and perisplenic ascites. Mild fat strandin g throughout the intra-abdominal fat appears new. No free air seen. Unable to clearly identify the appendix. Moderate stool in the right side of the colon. Sigmoid colon nondistended. Numerous scattered nonenlarged and borderline sized mesenteric lymph nodes measuring up to 7 mm likel y reactive. Uterus anteverted. Mild cul-de-sac free fluid. Both ovaries are visualized. There is a 3.0 cm dominan t follicle or functional cyst in the right ovary. Bladder nondistended. There appear to be 2 lumbar peritoneal shunt catheters entering the L3-L4 interlaminar space. One of the catheters tips ends at the T11 level. The second catheter extends up to T10 (coronal image 75) an d then loops downward with tip at L2. Confluent edema along the posterior midline subcutaneous adipos e layer where the catheters change direction. One of these catheters is abandoned. The other extends around to the right upper quadrant and with tip just to the left of the midline, unchanged. Right paramedian anterior [employer]IOR [employer]ELOPER shunt catheter is looped in the left subphrenic region, unchanged. IMPRESSION: 1. PROMINENT FLUID-FILLED SMALL BOWEL LOOPS THROUGHOUT THE ABDOMEN AND PELVIS COULD REPRESENT ENTERIT IS OR GENERALIZED ILEUS. 2. THERE IS A RIGHT-SIDED LUMBAR PERITONEAL SHUNT CATHETER ENTERING THE UPPER ABDOMEN AND ALSO A JUNIOR JAVA DEVELOPER S POON CATHETER, TIP LOOPED IN THE LEFT SUBPHRENIC REGION. OF NOTE, ONE OF THE LUMBAR SHUNT CATHETERS A PPEARS TO BE ABANDONED. ONE OF THESE ALSO FORMS A LOOP WITHIN THE SPINAL CANAL AT THE T10 LEVEL (BOBO NAL IMAGE 75) THEN HEADS BACK DOWN WITH TIP AT THE L2 LEVEL. CONFLUENT EDEMA ALONG THE POSTERIOR MIDL INE SUBCUTANEOUS LAYER WHERE THE CATHETERS ENTER THE SPINE. CORRELATE TO EXCLUDE ANY LEAKING, ACCUMUL ATING CSF FLUID WITHIN THE SUBCUTANEOUS ADIPOSE LAYER HERE. UNCHANGED FROM RECENT 07/22/2021 EXAM. 3. NEW MILD ABDOMINOPELVIC ASCITES AND MILD FAT STRANDING THROUGHOUT THE PERITONEUM. FINDINGS ARE NON SPECIFIC. THIS COULD BE SECONDARY TO THE CSF SHUNTING. HOWEVER, THE FINDINGS ARE NEW, CORRELATE TO EXCLUDE INFLAMMATORY ETIOLOGY SUCH PERITONITIS. 4. SUBTLE 1.3 CM INDETERMINATE HYPODENSITY ANTERIOR LEFT LIVER LOBE COULD REPRESENT SOME FOCAL FAT. 6 MONTH FOLLOW-UP CT TO REASSESS.
[2021-08-13 18:38] VITALS: BP 129/82; PULSE 75; RESP 18
== END 2021-08-13 18:30 | disposition home or self-care (01) ==
LOC: EC 15:09
DX: K52.9 Noninfective gastroenteritis and colitis, unspecified (principal); F17.200 Nicotine dependence, unspecified, uncomplicated; I10 Essential (primary) hypertension; Z91.041 Radiographic dye allergy status; Z88.6 Allergy status to analgesic agent; Z91.040 Latex allergy status; Z88.8 Allergy status to other drugs, medicaments and biological substances; Z88.1 Allergy status to other antibiotic agents; Z79.899 Other long term (current) drug therapy
CPT/HCPCS: 36415; 80053; 83690; 85025; 74177; 99284; 96374; 96375; 96361; 96376; J1200; J2930; J2405; J1170; Q9967

== ENCOUNTER 2021-08-22 19:12 | Emergency (ER) | payer MEDICARE, OTHER ==
[2021-08-22] MEDS ORDERED: SODIUM CHLORIDE 0.9% 500 ML 500 ML IV STA (21:17)
[2021-08-22] MEDS ORDERED: ONDANSETRON 4 MG/2 ML VIAL IVP STA (21:17)
[2021-08-22] MEDS ORDERED: PANTOPRAZOLE 40 MG/10 ML VIAL IVP STA (21:17)
--- NOTE | 2021-08-22 21:22 | ED ---
General Adult HPI - General Source: patient, RN notes reviewed, old records reviewed Mode of arrival: ambulatory Limitations: no limitations <Adalberto Abdi - Last Filed: 08/23/21 00:17> <Hang Watt - Last Filed: 08/23/21 09:22> - General Chief complaint: Abdominal Pain Stated complaint: Abdominal Pain, Nausea, Vomiting Time Seen by Provider: 08/22/21 20:35 - History of Present Illness Initial comments: Patient is a pleasant 36 show female presenting to the emergency Department with chronic abdominal pain. Onset of symptoms was 2-3 days ago. Patient states usually she gets symptoms like this every couple months secondary to history of colitis. Patient does have some nausea with vomiting. Patient has had some loose stools. Patient recently escaped relationship several months ago. Patient requests strong pain medication (Adalberto Abdi) - Related Data Home Medications Medication Instructions Recorded Confirmed Gabapentin 800 mg PO TID 08/13/20 08/22/21 Prazosin [Minipress] 5 mg PO HS 08/13/20 08/22/21 hydrOXYzine pamoate [Vistaril] 50 mg PO QID PRN 08/13/20 08/22/21 traZODone HCL 300 mg PO HS 08/13/20 08/22/21 Cariprazine HCl [Vraylar] 4.5 mg PO DAILY 07/22/21 08/22/21 Divalproex ER [Depakote ER] 500 mg PO BID 07/22/21 08/22/21 OLANZapine [ZyPREXA] 10 mg PO BID 07/22/21 08/22/21 Cetirizine HCl [Zyrtec] 10 mg PO DAILY PRN 08/22/21 08/22/21 DULoxetine HCL [Cymbalta] 90 mg PO DAILY 08/22/21 08/22/21 Famotidine [Pepcid] 20 mg PO BID 08/22/21 08/22/21 Allergies Allergy/AdvReac Type Severity Reaction Status Date / Time Iodinated Contrast Media Allergy Rash/Hives Verified 08/22/21 21:09 iodine Allergy Rash/Hives Verified 08/22/21 21:09 ketorolac [From Toradol] Allergy Anaphylaxis Verified 08/22/21 21:09 latex Allergy Anaphylaxis Verified 08/22/21 21:09 metoclopramide [From Reglan] Allergy Unknown Verified 08/22/21 21:09 prochlorperazine Allergy Unknown Verified 08/22/21 21:09 [From Compazine] sumatriptan [From Imitrex] Allergy Unknown Verified 08/22/21 21:09 vancomycin AdvReac red man Verified 08/22/21 21:09 syndrome Review of Systems ROS Other: All systems not noted in ROS Statement are negative. Constitutional: Denies: fever Eyes: Denies: eye pain ENT: Denies: ear pain Respiratory: Denies: cough Cardiovascular: Denies: chest pain Endocrine: Denies: fatigue Gastrointestinal: Reports: as per HPI Genitourinary: Denies: dysuria Musculoskeletal: Denies: back pain Skin: Denies: rash Neurological: Denies: headache <Adalberto Abdi - Last Filed: 08/23/21 00:17> ROS Other: All systems not noted in ROS Statement are negative. <Hang Watt - Last Filed: 08/23/21 09:22> ROS Statement: Those systems with pertinent positive or pertinent negative responses have been documented in the HPI. Past Medical History Past Medical History: Seizure Disorder Additional Past Medical History / Comment(s): intracranial hypertension, colitis, gastritis History of Any Multi-Drug Resistant Organisms: MRSA Date of last positivie culture/infection: L ear MDRO Source:: 2011 Past Surgical History: Back Surgery Additional Past Surgical History / Comment(s): brain shunt Past Psychological History: Bipolar, PTSD Smoking Status: Current every day smoker Past Alcohol Use History: Rare Past Drug Use History: Marijuana <Adalberto Abdi - Last Filed: 08/23/21 00:17> General Exam Limitations: no limitations General appearance: alert, in no apparent distress, other (Patient resting comfortably in bed in no distress.) Head exam: Present: normocephalic Eye exam: Present: normal appearance Neck exam: Present: normal inspection Respiratory exam: Present: normal lung sounds bilaterally Cardiovascular Exam: Present: regular rate, normal rhythm GI/Abdominal exam: Present: soft, tenderness (Mild tenderness left lower abdomen) Extremities exam: Present: normal inspection Neurological exam: Present: alert Psychiatric exam: Present: normal affect, normal mood Skin exam: Present: normal color <Adalberto Abdi - Last Filed: 08/23/21 00:17> Course <Adalberto Abdi - Last Filed: 08/23/21 00:17> Vital Signs 08/22/21 08/23/21 19:23 05:59 Temperature 98.6 F 98.1 F Pulse Rate 96 57 L Respiratory 16 18 Rate Blood Pressure 123/83 115/75 O2 Sat by Pulse 100 98 Oximetry - Reevaluation(s) Reevaluation #1: 08/23/21 00:17 Patient clear for mental health evaluation (Adalberto Abdi) Medical Decision Making - Lab Data Result diagrams: 08/22/21 23:23 08/22/21 23:23 - Radiology Data Radiology results: image reviewed (Abdominal x-ray reveals no acute process) <Adalberto Abdi - Last Filed: 08/23/21 00:17> - Lab Data Result diagrams: 08/22/21 23:23 08/22/21 23:23 <Hang Watt - Last Filed: 08/23/21 09:22> - Medical Decision Making [facility] will come and pick the patient up and take the patient to her where she is going to live (Hang Watt) - Lab Data Lab Results 08/22/21 08/22/21 08/22/21 Range/Units 21:48 21:48 21:48 WBC (3.8-10.6) k/uL RBC (3.80-5.40) m/uL Hgb (11.4-16.0) gm/dL Hct (34.0-46.0) % MCV (80.0-100.0) fL MCH (25.0-35.0) pg MCHC (31.0-37.0) g/dL RDW (11.5-15.5) % Plt Count (150-450) k/uL MPV Neutrophils % % Lymphocytes % % Monocytes % % Eosinophils % % Basophils % % Neutrophils # (1.3-7.7) k/uL Lymphocytes # (1.0-4.8) k/uL Monocytes # (0-1.0) k/uL Eosinophils # (0-0.7) k/uL Basophils # (0-0.2) k/uL Hypochromasia Anisocytosis PT (9.0-12.0) sec INR (<1.2) APTT (22.0-30.0) sec Sodium (137-145) mmol/L Potassium (3.5-5.1) mmol/L Chloride (98-107) mmol/L Carbon Dioxide (22-30) mmol/L Anion Gap mmol/L BUN (7-17) mg/dL Creatinine (0.52-1.04) mg/dL Est GFR (CKD-EPI)AfAm (>60 ml/min/1.73 sqM) Est GFR (CKD-EPI)NonAf (>60 ml/min/1.73 sqM) Glucose (74-99) mg/dL Calcium (8.4-10.2) mg/dL Total Bilirubin (0.2-1.3) mg/dL AST (14-36) U/L ALT (4-34) U/L Alkaline Phosphatase (38-126) U/L Total Protein (6.3-8.2) g/dL Albumin (3.5-5.0) g/dL Amylase (30-110) U/L Lipase (23-300) U/L Urine Color Yellow Urine Appearance Clear (Clear) Urine pH 7.5 (5.0-8.0) Ur Specific [place] 1.024 (1.001-1.035) Urine Protein Trace H (Negative) Urine Glucose (UA) Negative (Negative) Urine Ketones Negative (Negative) Urine Blood Large H (Negative) Urine Nitrite Negative (Negative) Urine Bilirubin Negative (Negative) Urine Urobilinogen <2.0 (<2.0) mg/dL Ur Leukocyte Esterase Negative (Negative) Urine RBC >182 H (0-5) /hpf Urine WBC 1 (0-5) /hpf Ur Squamous Epith Cells 5 H (0-4) /hpf Urine Bacteria Rare H (None) /hpf Hyaline Casts 1 (0-2) /lpf Urine Mucus Rare H (None) /hpf Urine HCG, Qual Not Detected (Not Detectd) Urine Opiates Screen Not Detected (NotDetected) Ur Oxycodone Screen Not Detected (NotDetected) Urine Methadone Screen Not Detected (NotDetected) Ur Propoxyphene Screen Not Detected (NotDetected) Ur Barbiturates Screen Not Detected (NotDetected) U Tricyclic Antidepress Not Detected (NotDetected) Ur Phencyclidine Scrn Not Detected (NotDetected) Ur Amphetamines Screen Not Detected (NotDetected) U Methamphetamines Scrn Not Detected (NotDetected) U Benzodiazepines Scrn Not Detected (NotDetected) Urine Cocaine Screen Not Detected (NotDetected) U Marijuana (THC) Screen Detected H (NotDetected) 08/22/21 08/22/21 08/22/21 Range/Units 23:23 23:23 23:23 WBC 6.8 (3.8-10.6) k/uL RBC 3.88 (3.80-5.40) m/uL Hgb 10.0 L (11.4-16.0) gm/dL Hct 32.6 L (34.0-46.0) % MCV 83.9 (80.0-100.0) fL MCH 25.8 (25.0-35.0) pg MCHC 30.7 L (31.0-37.0) g/dL RDW 17.6 H (11.5-15.5) % Plt Count 203 (150-450) k/uL MPV 7.8 Neutrophils % 57 % Lymphocytes % 30 % Monocytes % 5 % Eosinophils % 6 % Basophils % 0 % Neutrophils # 3.9 (1.3-7.7) k/uL Lymphocytes # 2.0 (1.0-4.8) k/uL Monocytes # 0.4 (0-1.0) k/uL Eosinophils # 0.4 (0-0.7) k/uL Basophils # 0.0 (0-0.2) k/uL Hypochromasia Slight Anisocytosis Slight PT 10.5 (9.0-12.0) sec INR 1.0 (<1.2) APTT 25.5 (22.0-30.0) sec Sodium 137 (137-145) mmol/L Potassium 4.1 (3.5-5.1) mmol/L Chloride 108 H (98-107) mmol/L Carbon Dioxide 21 L (22-30) mmol/L Anion Gap 8 mmol/L BUN 16 (7-17) mg/dL Creatinine 0.60 (0.52-1.04) mg/dL Est GFR (CKD-EPI)AfAm >90 (>60 ml/min/1.73 sqM) Est GFR (CKD-EPI)NonAf >90 (>60 ml/min/1.73 sqM) Glucose 85 (74-99) mg/dL Calcium 8.3 L (8.4-10.2) mg/dL Total Bilirubin 0.2 (0.2-1.3) mg/dL AST 15 (14-36) U/L ALT 11 (4-34) U/L Alkaline Phosphatase 51 (38-126) U/L Total Protein 6.0 L (6.3-8.2) g/dL Albumin 3.2 L (3.5-5.0) g/dL Amylase 79 (30-110) U/L Lipase 254 (23-300) U/L Urine Color Urine Appearance (Clear) Urine pH (5.0-8.0) Ur Specific [place] (1.001-1.035) Urine Protein (Negative) Urine Glucose (UA) (Negative) Urine Ketones (Negative) Urine Blood (Negative) Urine Nitrite (Negative) Urine Bilirubin (Negative) Urine Urobilinogen (<2.0) mg/dL Ur Leukocyte Esterase (Negative) Urine RBC (0-5) /hpf Urine WBC (0-5) /hpf Ur Squamous Epith Cells (0-4) /hpf Urine Bacteria (None) /hpf Hyaline Casts (0-2) /lpf Urine Mucus (None) /hpf Urine HCG, Qual (Not Detectd) Urine Opiates Screen (NotDetected) Ur Oxycodone Screen (NotDetected) Urine Methadone Screen (NotDetected) Ur Propoxyphene Screen (NotDetected) Ur Barbiturates Screen (NotDetected) U Tricyclic Antidepress (NotDetected) Ur Phencyclidine Scrn (NotDetected) Ur Amphetamines Screen (NotDetected) U Methamphetamines Scrn (NotDetected) U Benzodiazepines Scrn (NotDetected) Urine Cocaine Screen (NotDetected) U Marijuana (THC) Screen (NotDetected) Disposition Is patient prescribed a controlled substance at d/c from ED?: No <Adalberto Abdi - Last Filed: 08/23/21 00:17> Is patient prescribed a controlled substance at d/c from ED?: No Time of Disposition: 09:22 <Hang Watt - Last Filed: 08/23/21 09:22> Clinical Impression: Chronic abdominal pain, Depression Disposition: HOME SELF-CARE Referrals: None,Stated [Primary Care Provider] - 1-2 days
[2021-08-22] MEDS ORDERED: LORazepam 2 MG/ML INJ IM STA (22:05)
[2021-08-22] MEDS ORDERED: ZIPRASIDONE 20 MG VIAL IM STA (22:06)
[2021-08-22 22:21] LABS: Appearance,Urine Clear (Clear); Bacteria,Urine Rare /hpf; Bilirubin,Urine Negative (Negative); Blood,Urine Large (Negative); Color,Urine Yellow; Glucose,Urine (UA) Negative (Negative); Hyaline Casts,Urine 1 /lpf (0-2); Ketones,Urine Negative (Negative); Leukocyte Esterase,Urine Negative (Negative); Mucus,Urine Rare /hpf; Nitrite,Urine Negative (Negative); PH, Urine 7.5 (5.0-8.0); Protein,Urine Trace (Negative); RBC,Urine >182 /hpf (0-5); Specific Gravity,Urine 1.024 (1.001-1.035); Squamous Epithelial Cell,Urine 5 /hpf (0-4); Urobilinogen,Urine <2.0 mg/dL (<2.0); WBC,Urine 1 /hpf (0-5)
[2021-08-22 22:23] LABS: Amphetamine Screen,Urine Not Detected (NotDetected); Barbiturate Screen,Urine Not Detected (NotDetected); Benzodiazepines Screen,Urine Not Detected (NotDetected); Cocaine Screen,Urine Not Detected (NotDetected); Methadone Screen, Urine Not Detected (NotDetected); Opiate Screen,Urine Not Detected (NotDetected); Oxycodone Screen, Urine Not Detected (NotDetected); Phencyclidine Screen,Urine Not Detected (NotDetected); Tricyclic Antidepressant,Urine Not Detected (NotDetected); Urn Cannabinoid Scrn Detected (NotDetected)
--- NOTE | 2021-08-22 23:06 | XR ---
EXAMINATION TYPE: XR KUB DATE OF EXAM: 08/22/2021 COMPARISON: 07/19/2021 HISTORY: Abdominal pain TECHNIQUE: 2 views upright FINDINGS: Bowel gas pattern is normal. There is no sign of intestinal obstruction or pneumoperitoneum . Fecal pattern is normal. There is shunt catheter noted on the right side of the chest and the suyapa ter is looped over the left upper quadrant. No evidence of abdominal mass. IMPRESSION: Nonacute abdomen. No adverse change.
[2021-08-22 23:52] LABS: Anisocytosis Slight; Basophils % (A) 0 %; Eosinophils # (A) 0.4 k/uL (0-0.7); Eosinophils % (A) 6 %; HCT 32.6 % (34.0-46.0); Hypochromasia Slight; Lymphocytes % (A) 30 %; MCH 25.8 pg (25.0-35.0); MCHC 30.7 g/dL (31.0-37.0); MCV 83.9 fL (80.0-100.0); Mean Platelet Volume 7.8; Monocytes # (A) 0.4 k/uL (0-1.0); Monocytes % (A) 5 %; Neutrophils # (A) 3.9 k/uL (1.3-7.7); Neutrophils % (A) 57 %; Platelet Count 203 k/uL (150-450); RBC 3.88 m/uL (3.80-5.40); RDW 17.6 % (11.5-15.5); WBC 6.8 k/uL (3.8-10.6)
[2021-08-23] LABS: Partial Thromboplastin Time 25.5 sec (22.0-30.0); Prothrombin Time 10.5 sec (9.0-12.0)
[2021-08-23 00:04] LABS: ALT 11 U/L (4-34); AST 15 U/L (14-36); African American GFR (CKD) >90 (>60 ml/min/1.73 sqM); Albumin 3.2 g/dL (3.5-5.0); Alkaline Phosphatase 51 U/L (38-126); Amylase 79 U/L (30-110); Anion Gap 8 mmol/L; Blood Urea Nitrogen 16 mg/dL (7-17); Calcium 8.3 mg/dL (8.4-10.2); Carbon Dioxide 21 mmol/L (22-30); Chloride 108 mmol/L (98-107); Glucose 85 mg/dL (74-99); Lipase 254 U/L (23-300); Non-African American GFR(CKD) >90 (>60 ml/min/1.73 sqM); Potassium 4.1 mmol/L (3.5-5.1); Sodium 137 mmol/L (137-145); Total Bilirubin 0.2 mg/dL (0.2-1.3)
[2021-08-23 06:00] VITALS: BP 115/75
[2021-08-23 10:36] VITALS: PULSE 116; RESP 16; TEMP 98.2
== END 2021-08-23 10:33 | disposition home or self-care (01) ==
LOC: EC 19:12
DX: G89.29 Other chronic pain (principal); R10.9 Unspecified abdominal pain; F32.A Depression, unspecified; F17.200 Nicotine dependence, unspecified, uncomplicated; Z91.041 Radiographic dye allergy status; Z88.6 Allergy status to analgesic agent; Z91.040 Latex allergy status; Z88.8 Allergy status to other drugs, medicaments and biological substances; Z88.9 Allergy status to unspecified drugs, medicaments and biological substances; Z88.1 Allergy status to other antibiotic agents
CPT/HCPCS: 99284; 82075; 36415; 80053; 82150; 83690; 85025; 85610; 85730; 81001; 81025; 80306; 74018; 96372; J2060; J3486

== ENCOUNTER 2021-08-24 23:04 | Emergency (ER) | payer MEDICARE, OTHER ==
[2021-08-24 23:14] VITALS: TEMP 98.4
[2021-08-25 00:17] LABS: Anisocytosis Slight; Basophils % (A) 0 %; Eosinophils % (A) 0 %; HCT 35.8 % (34.0-46.0); Hypochromasia Slight; Lymphocytes # (A) 0.4 k/uL (1.0-4.8); Lymphocytes % (A) 5 %; MCH 25.7 pg (25.0-35.0); MCHC 30.6 g/dL (31.0-37.0); Mean Platelet Volume 7.5; Monocytes # (A) 0.1 k/uL (0-1.0); Monocytes % (A) 1 %; Neutrophils # (A) 6.8 k/uL (1.3-7.7); Neutrophils % (A) 93 %; Platelet Count 242 k/uL (150-450); RBC 4.26 m/uL (3.80-5.40); RDW 17.6 % (11.5-15.5); WBC 7.3 k/uL (3.8-10.6)
--- NOTE | 2021-08-25 00:18 | CT ---
EXAMINATION TYPE: CT brain wo con for TPA DATE OF EXAM: 08/25/2021 COMPARISON: 08/08/2021 HISTORY: headache CT DLP: 1174.4 mGycm Automated exposure control for dose reduction was used. Images of the brain obtained without contrast. Ventricles have normal size. There is no mass effect nor midline shift. There is no sign of intracran ial hemorrhage. There is right side frontal shunt catheter with the tip at the frontal horn of the le ft lateral ventricle. No hydrocephalus. There is some hyperostosis frontalis. There is focal cerebral falx calcification. The skull base is intact. IMPRESSION: No acute intracranial abnormality. No hydrocephalus. No change compared to old exam.
--- NOTE | 2021-08-25 00:20 | XR ---
EXAMINATION TYPE: XR chest 2V DATE OF EXAM: 08/25/2021 COMPARISON: 07/19/2021 HISTORY: Altered mental status TECHNIQUE: 2 views FINDINGS: There is a right-sided ventricular shunt catheter noted. Catheter appears intact. Heart and mediastinum are normal. There is no pleural effusion. Diaphragm is normal. There no hilar masses. Remy ny thorax is intact. There is shunt catheter apparently looped in the left upper quadrant over the spleen. IMPRESSION: Normal chest. No change.
[2021-08-25] MEDS ORDERED: MORPHINE SULFATE 4 MG/ML SYRINGE IV STA (00:27)
[2021-08-25] MEDS ORDERED: ONDANSETRON 4 MG/2 ML VIAL IVP STA ×2 (00:27→02:48)
[2021-08-25 00:35] LABS: ALT 16 U/L (4-34); AST 22 U/L (14-36); African American GFR (CKD) >90 (>60 ml/min/1.73 sqM); Albumin 3.9 g/dL (3.5-5.0); Alkaline Phosphatase 60 U/L (38-126); Anion Gap 8 mmol/L; Blood Urea Nitrogen 17 mg/dL (7-17); Calcium 9.2 mg/dL (8.4-10.2); Carbon Dioxide 20 mmol/L (22-30); Chloride 108 mmol/L (98-107); Glucose 174 mg/dL (74-99); Non-African American GFR(CKD) >90 (>60 ml/min/1.73 sqM); Potassium 3.9 mmol/L (3.5-5.1); Sodium 136 mmol/L (137-145); Total Bilirubin 0.4 mg/dL (0.2-1.3)
[2021-08-25 00:38] LABS: Partial Thromboplastin Time 26.5 sec (22.0-30.0); Prothrombin Time 10.5 sec (9.0-12.0)
[2021-08-25] MEDS ORDERED: diphenhydrAMINE 50 MG/ML 1 ML VIAL IVP STA (02:51)
--- NOTE | 2021-08-25 03:03 | ED ---
Headache HPI - General Chief Complaint: Headache Stated Complaint: headache Time Seen by Provider: 08/24/21 23:41 Mode of arrival: ambulatory Limitations: no limitations - History of Present Illness MD Complaint: headache -: hour(s) Onset Description: gradual Location: frontal Quality: aching, constant Consistency: constant Improves With: nothing Worsens With: none Context: occurred at rest Associated Symptoms: nausea, vomiting Treatments Prior to Arrival: none - Related Data Home Medications Medication Instructions Recorded Confirmed Gabapentin 800 mg PO TID 08/13/20 08/22/21 Prazosin [Minipress] 5 mg PO HS 08/13/20 08/22/21 hydrOXYzine pamoate [Vistaril] 50 mg PO QID PRN 08/13/20 08/22/21 traZODone HCL 300 mg PO HS 08/13/20 08/22/21 Cariprazine HCl [Vraylar] 4.5 mg PO DAILY 07/22/21 08/22/21 Divalproex ER [Depakote ER] 500 mg PO BID 07/22/21 08/22/21 OLANZapine [ZyPREXA] 10 mg PO BID 07/22/21 08/22/21 Cetirizine HCl [Zyrtec] 10 mg PO DAILY PRN 08/22/21 08/22/21 DULoxetine HCL [Cymbalta] 90 mg PO DAILY 08/22/21 08/22/21 Famotidine [Pepcid] 20 mg PO BID 08/22/21 08/22/21 Allergies Allergy/AdvReac Type Severity Reaction Status Date / Time Iodinated Contrast Media Allergy Rash/Hives Verified 08/24/21 23:09 iodine Allergy Rash/Hives Verified 08/24/21 23:09 ketorolac [From Toradol] Allergy Anaphylaxis Verified 08/24/21 23:09 latex Allergy Anaphylaxis Verified 08/24/21 23:09 metoclopramide [From Reglan] Allergy Unknown Verified 08/24/21 23:09 prochlorperazine Allergy Unknown Verified 08/24/21 23:09 [From Compazine] sumatriptan [From Imitrex] Allergy Unknown Verified 08/24/21 23:09 vancomycin AdvReac red man Verified 08/24/21 23:09 syndrome Review of Systems ROS Statement: Those systems with pertinent positive or pertinent negative responses have been documented in the HPI. ROS Other: All systems not noted in ROS Statement are negative. Constitutional: Denies: fever, chills, weakness Eyes: Denies: vision change Respiratory: Denies: cough, dyspnea Cardiovascular: Denies: chest pain Gastrointestinal: Reports: nausea, vomiting. Denies: abdominal pain, diarrhea, hematemesis Genitourinary: Denies: dysuria Musculoskeletal: Denies: back pain Skin: Denies: rash Neurological: Reports: headache, weakness. Denies: numbness Past Medical History Past Medical History: Seizure Disorder Additional Past Medical History / Comment(s): intracranial hypertension, colitis, gastritis History of Any Multi-Drug Resistant Organisms: MRSA Date of last positivie culture/infection: L ear MDRO Source:: 2011 Past Surgical History: Back Surgery Additional Past Surgical History / Comment(s): brain shunt Past Psychological History: Bipolar, PTSD Smoking Status: Current every day smoker Past Alcohol Use History: Rare Past Drug Use History: Marijuana General Exam Limitations: no limitations General appearance: alert, in no apparent distress Head exam: Present: atraumatic, normocephalic Eye exam: Present: normal appearance. Absent: scleral icterus, conjunctival injection ENT exam: Present: normal oropharynx Neck exam: Present: normal inspection, full ROM Respiratory exam: Present: normal lung sounds bilaterally. Absent: respiratory distress, wheezes, rales, rhonchi, stridor Cardiovascular Exam: Present: regular rate, normal rhythm, normal heart sounds. Absent: systolic murmur, diastolic murmur, rubs, gallop GI/Abdominal exam: Present: soft. Absent: distended, tenderness, guarding, rebound, rigid, mass Extremities exam: Present: normal inspection, normal capillary refill. Absent: pedal edema, calf tenderness Back exam: Present: normal inspection. Absent: CVA tenderness (R), CVA tenderness (L) Neurological exam: Present: alert, oriented X3, CN II-XII intact. Absent: motor sensory deficit Skin exam: Present: warm, dry, intact, normal color. Absent: rash Course Vital Signs 08/24/21 08/24/21 08/24/21 23:09 23:22 23:35 Temperature 98.4 F Pulse Rate 102 H 98 80 Respiratory 16 18 16 Rate Blood Pressure 135/85 153/95 150/84 O2 Sat by Pulse 98 96 98 Oximetry 04/08/25/21 08/25/21 23:50 00:05 00:20 Temperature Pulse Rate 85 84 89 Respiratory 16 18 18 Rate Blood Pressure 146/85 151/93 153/86 O2 Sat by Pulse 96 97 97 Oximetry 08/25/21 08/25/21 08/25/21 00:35 00:50 01:00 Temperature Pulse Rate 91 89 84 Respiratory 18 16 16 Rate Blood Pressure 154/89 134/86 114/69 O2 Sat by Pulse 97 97 97 Oximetry 08/25/21 08/25/21 02:55 03:50 Temperature Pulse Rate 80 78 Respiratory 16 18 Rate Blood Pressure 110/76 121/80 O2 Sat by Pulse 97 98 Oximetry Medical Decision Making - Medical Decision Making This patient is a 36-year-old woman with history of chronic headaches, also history of deep the lumbar shunt. She had been made a code stroke patient based on the complaint that she had. She had been triaged to receive computed tomography scan as I was in dealing with trauma patient and could not see her prior to CT. I did reevaluate her following that. The exam has inconsistencies versus known stroke pattern. The weakness on the left side was definitely fluctuating I discussed with patient whether she is a shunt evaluation and trans ferred her she has expressed an interest to go home rather than be transferred. Following medication, patient was manifesting no neurologic deficits - Lab Data Result diagrams: 08/24/21 23:50 08/24/21 23:50 Lab Results 08/24/21 08/24/21 08/24/21 Range/Units 23:50 23:50 23:50 WBC 7.3 (3.8-10.6) k/uL RBC 4.26 (3.80-5.40) m/uL Hgb 11.0 L (11.4-16.0) gm/dL Hct 35.8 (34.0-46.0) % MCV 84.0 (80.0-100.0) fL MCH 25.7 (25.0-35.0) pg MCHC 30.6 L (31.0-37.0) g/dL RDW 17.6 H (11.5-15.5) % Plt Count 242 (150-450) k/uL MPV 7.5 Neutrophils % 93 % Lymphocytes % 5 % Monocytes % 1 % Eosinophils % 0 % Basophils % 0 % Neutrophils # 6.8 (1.3-7.7) k/uL Lymphocytes # 0.4 L (1.0-4.8) k/uL Monocytes # 0.1 (0-1.0) k/uL Eosinophils # 0.0 (0-0.7) k/uL Basophils # 0.0 (0-0.2) k/uL Hypochromasia Slight Anisocytosis Slight PT 10.5 (9.0-12.0) sec INR 1.0 (<1.2) APTT 26.5 (22.0-30.0) sec Sodium 136 L (137-145) mmol/L Potassium 3.9 (3.5-5.1) mmol/L Chloride 108 H (98-107) mmol/L Carbon Dioxide 20 L (22-30) mmol/L Anion Gap 8 mmol/L BUN 17 (7-17) mg/dL Creatinine 0.66 (0.52-1.04) mg/dL Est GFR (CKD-EPI)AfAm >90 (>60 ml/min/1.73 sqM) Est GFR (CKD-EPI)NonAf >90 (>60 ml/min/1.73 sqM) Glucose 174 H (74-99) mg/dL Calcium 9.2 (8.4-10.2) mg/dL Total Bilirubin 0.4 (0.2-1.3) mg/dL AST 22 (14-36) U/L ALT 16 (4-34) U/L Alkaline Phosphatase 60 (38-126) U/L Troponin I (0.000-0.034) ng/mL Total Protein 7.0 (6.3-8.2) g/dL Albumin 3.9 (3.5-5.0) g/dL 08/24/21 Range/Units 23:50 WBC (3.8-10.6) k/uL RBC (3.80-5.40) m/uL Hgb (11.4-16.0) gm/dL Hct (34.0-46.0) % MCV (80.0-100.0) fL MCH (25.0-35.0) pg MCHC (31.0-37.0) g/dL RDW (11.5-15.5) % Plt Count (150-450) k/uL MPV Neutrophils % % Lymphocytes % % Monocytes % % Eosinophils % % Basophils % % Neutrophils # (1.3-7.7) k/uL Lymphocytes # (1.0-4.8) k/uL Monocytes # (0-1.0) k/uL Eosinophils # (0-0.7) k/uL Basophils # (0-0.2) k/uL Hypochromasia Anisocytosis PT (9.0-12.0) sec INR (<1.2) APTT (22.0-30.0) sec Sodium (137-145) mmol/L Potassium (3.5-5.1) mmol/L Chloride (98-107) mmol/L Carbon Dioxide (22-30) mmol/L Anion Gap mmol/L BUN (7-17) mg/dL Creatinine (0.52-1.04) mg/dL Est GFR (CKD-EPI)AfAm (>60 ml/min/1.73 sqM) Est GFR (CKD-EPI)NonAf (>60 ml/min/1.73 sqM) Glucose (74-99) mg/dL Calcium (8.4-10.2) mg/dL Total Bilirubin (0.2-1.3) mg/dL AST (14-36) U/L ALT (4-34) U/L Alkaline Phosphatase (38-126) U/L Troponin I <0.012 (0.000-0.034) ng/mL Total Protein (6.3-8.2) g/dL Albumin (3.5-5.0) g/dL Disposition Clinical Impression: Drug-seeking behavior, Headache Disposition: HOME SELF-CARE Condition: Fair Instructions (If sedation given, give patient instructions): Acute Headache (ED) Is patient prescribed a controlled substance at d/c from ED?: No Referrals: None,Stated [Primary Care Provider] - 1-2 days Time of Disposition: 03:00
[2021-08-25 04:22] VITALS: BP 121/80; PULSE 78; RESP 18
== END 2021-08-25 03:54 | disposition home or self-care (01) ==
LOC: EC 23:04
DX: R51.9 Headache, unspecified (principal); Z76.5 Malingerer [conscious simulation]; I10 Essential (primary) hypertension; F17.200 Nicotine dependence, unspecified, uncomplicated; Z91.040 Latex allergy status; Z88.8 Allergy status to other drugs, medicaments and biological substances; Z88.9 Allergy status to unspecified drugs, medicaments and biological substances; Z88.1 Allergy status to other antibiotic agents
CPT/HCPCS: 36415; 80053; 84484; 85025; 85610; 85730; 71046; 70450; 99284; 96374; 96375; 96376; J2270; J1200; J2405; 93005; 96361

== ENCOUNTER 2021-08-30 11:24 | Emergency (ER) | payer MEDICARE, OTHER ==
[2021-08-30 11:34] VITALS: BP 122/75; PULSE 77; RESP 18; TEMP 98
[2021-08-30 12:04] LABS: Appearance,Urine Cloudy (Clear); Bacteria,Urine Occasional /hpf; Bilirubin,Urine Negative (Negative); Blood,Urine Negative (Negative); Color,Urine Light Yellow; Glucose,Urine (UA) Negative (Negative); Ketones,Urine Negative (Negative); Leukocyte Esterase,Urine Negative (Negative); Mucus,Urine Rare /hpf; Nitrite,Urine Negative (Negative); Protein,Urine Negative (Negative); RBC,Urine <1 /hpf (0-5); Squamous Epithelial Cell,Urine 6 /hpf (0-4); Urobilinogen,Urine <2.0 mg/dL (<2.0); WBC,Urine 1 /hpf (0-5)
[2021-08-30] MEDS ORDERED: HYDROmorphone 0.5 MG/0.5 ML SYRINGE IVP STA (12:49)
[2021-08-30] MEDS ORDERED: SODIUM CHLORIDE 0.9% 1,000 ML IV STA (12:49)
--- NOTE | 2021-08-30 13:08 | ED ---
General Adult HPI - General Chief complaint: Abdominal Pain Stated complaint: kidney stones Time Seen by Provider: 08/30/21 12:45 Source: patient, RN notes reviewed, old records reviewed Mode of arrival: ambulatory Limitations: no limitations - History of Present Illness Initial comments: 36-year-old female with 24 hours of severe right flank pain. Patient has associated vomiting. She's also reported subjective fevers. No change in her bowels. She denies hematuria. She states she has a history of previous kidney stones and believes this is similar to previous episodes. No chest pain. No upper abdominal pain. She had previous appendectomy. - Related Data Home Medications Medication Instructions Recorded Confirmed Gabapentin 800 mg PO TID 08/13/20 08/22/21 Prazosin [Minipress] 5 mg PO HS 08/13/20 08/22/21 hydrOXYzine pamoate [Vistaril] 50 mg PO QID PRN 08/13/20 08/22/21 traZODone HCL 300 mg PO HS 08/13/20 08/22/21 Cariprazine HCl [Vraylar] 4.5 mg PO DAILY 07/22/21 08/22/21 Divalproex ER [Depakote ER] 500 mg PO BID 07/22/21 08/22/21 OLANZapine [ZyPREXA] 10 mg PO BID 07/22/21 08/22/21 Cetirizine HCl [Zyrtec] 10 mg PO DAILY PRN 08/22/21 08/22/21 DULoxetine HCL [Cymbalta] 90 mg PO DAILY 08/22/21 08/22/21 Famotidine [Pepcid] 20 mg PO BID 08/22/21 08/22/21 Allergies Allergy/AdvReac Type Severity Reaction Status Date / Time Iodinated Contrast Media Allergy Rash/Hives Verified 08/30/21 11:34 iodine Allergy Rash/Hives Verified 08/30/21 11:34 ketorolac [From Toradol] Allergy Anaphylaxis Verified 08/30/21 11:34 latex Allergy Anaphylaxis Verified 08/30/21 11:34 metoclopramide [From Reglan] Allergy Unknown Verified 08/30/21 11:34 prochlorperazine Allergy Unknown Verified 08/30/21 11:34 [From Compazine] sumatriptan [From Imitrex] Allergy Unknown Verified 08/30/21 11:34 vancomycin AdvReac red man Verified 08/30/21 11:34 syndrome Review of Systems ROS Statement: Those systems with pertinent positive or pertinent negative responses have been documented in the HPI. ROS Other: All systems not noted in ROS Statement are negative. Past Medical History Past Medical History: Seizure Disorder Additional Past Medical History / Comment(s): intracranial hypertension, colitis, gastritis History of Any Multi-Drug Resistant Organisms: MRSA Date of last positivie culture/infection: L ear MDRO Source:: 2011 Past Surgical History: Back Surgery Additional Past Surgical History / Comment(s): brain shunt Past Psychological History: Bipolar, PTSD Smoking Status: Current every day smoker Past Alcohol Use History: Rare Past Drug Use History: Marijuana General Exam Limitations: no limitations General appearance: alert, in no apparent distress Head exam: Present: atraumatic, normocephalic Eye exam: Present: normal appearance, PERRL ENT exam: Present: normal exam Neck exam: Present: normal inspection. Absent: tenderness, meningismus Respiratory exam: Present: normal lung sounds bilaterally. Absent: respiratory distress, wheezes Cardiovascular Exam: Present: regular rate, normal rhythm GI/Abdominal exam: Present: soft. Absent: distended, tenderness Extremities exam: Present: normal inspection, normal capillary refill Back exam: Present: CVA tenderness (R) Neurological exam: Present: alert, oriented X3, CN II-XII intact. Absent: motor sensory deficit Psychiatric exam: Present: normal affect, normal mood Skin exam: Present: warm, dry, intact. Absent: cyanosis, diaphoretic Course Vital Signs 08/30/21 11:32 Temperature 98 F Pulse Rate 77 Respiratory 18 Rate Blood Pressure 122/75 O2 Sat by Pulse 100 Oximetry Medical Decision Making - Medical Decision Making 36-year-old female with right flank pain over the past 24 hours. Patient does have CVA tenderness. Urinalysis is not suggestive of hematuria or infection. She has a normal CBC, normal CMP, CT is performed which shows some trace free fluid. No obstruction or hydronephrosis. No acute findings. Patient feeling better on reevaluation. She will be discharged home with close outpatient follow-up. - Lab Data Result diagrams: 08/30/21 12:55 08/30/21 12:55 Lab Results 08/30/21 08/30/21 08/30/21 Range/Units 11:38 11:38 12:55 WBC 4.9 (3.8-10.6) k/uL RBC 4.00 (3.80-5.40) m/uL Hgb 10.6 L (11.4-16.0) gm/dL Hct 34.0 (34.0-46.0) % MCV 84.9 (80.0-100.0) fL MCH 26.6 (25.0-35.0) pg MCHC 31.3 (31.0-37.0) g/dL RDW 17.7 H (11.5-15.5) % Plt Count 194 (150-450) k/uL MPV 7.5 Neutrophils % 61 % Lymphocytes % 24 % Monocytes % 7 % Eosinophils % 5 % Basophils % 1 % Neutrophils # 3.0 (1.3-7.7) k/uL Lymphocytes # 1.2 (1.0-4.8) k/uL Monocytes # 0.4 (0-1.0) k/uL Eosinophils # 0.3 (0-0.7) k/uL Basophils # 0.0 (0-0.2) k/uL Hypochromasia Slight Anisocytosis Slight PT (9.0-12.0) sec INR (<1.2) APTT (22.0-30.0) sec Sodium (137-145) mmol/L Potassium (3.5-5.1) mmol/L Chloride (98-107) mmol/L Carbon Dioxide (22-30) mmol/L Anion Gap mmol/L BUN (7-17) mg/dL Creatinine (0.52-1.04) mg/dL Est GFR (CKD-EPI)AfAm (>60 ml/min/1.73 sqM) Est GFR (CKD-EPI)NonAf (>60 ml/min/1.73 sqM) Glucose (74-99) mg/dL Plasma Lactic Acid Tray (0.7-2.0) mmol/L Calcium (8.4-10.2) mg/dL Total Bilirubin (0.2-1.3) mg/dL AST (14-36) U/L ALT (4-34) U/L Alkaline Phosphatase (38-126) U/L Total Protein (6.3-8.2) g/dL Albumin (3.5-5.0) g/dL Amylase (30-110) U/L Lipase (23-300) U/L Urine Color Light Yellow Urine Appearance Cloudy H (Clear) Urine pH 6.0 (5.0-8.0) Ur Specific [place] 1.010 (1.001-1.035) Urine Protein Negative (Negative) Urine Glucose (UA) Negative (Negative) Urine Ketones Negative (Negative) Urine Blood Negative (Negative) Urine Nitrite Negative (Negative) Urine Bilirubin Negative (Negative) Urine Urobilinogen <2.0 (<2.0) mg/dL Ur Leukocyte Esterase Negative (Negative) Urine RBC <1 (0-5) /hpf Urine WBC 1 (0-5) /hpf Ur Squamous Epith Cells 6 H (0-4) /hpf Urine Bacteria Occasional H (None) /hpf Urine Mucus Rare H (None) /hpf Urine HCG, Qual Not Detected (Not Detectd) 08/30/21 08/30/21 08/30/21 Range/Units 12:55 12:55 12:55 WBC (3.8-10.6) k/uL RBC (3.80-5.40) m/uL Hgb (11.4-16.0) gm/dL Hct (34.0-46.0) % MCV (80.0-100.0) fL MCH (25.0-35.0) pg MCHC (31.0-37.0) g/dL RDW (11.5-15.5) % Plt Count (150-450) k/uL MPV Neutrophils % % Lymphocytes % % Monocytes % % Eosinophils % % Basophils % % Neutrophils # (1.3-7.7) k/uL Lymphocytes # (1.0-4.8) k/uL Monocytes # (0-1.0) k/uL Eosinophils # (0-0.7) k/uL Basophils # (0-0.2) k/uL Hypochromasia Anisocytosis PT 10.3 (9.0-12.0) sec INR 0.9 (<1.2) APTT 24.8 (22.0-30.0) sec Sodium 137 (137-145) mmol/L Potassium 4.6 (3.5-5.1) mmol/L Chloride 108 H (98-107) mmol/L Carbon Dioxide 27 (22-30) mmol/L Anion Gap 2 mmol/L BUN 16 (7-17) mg/dL Creatinine 0.54 (0.52-1.04) mg/dL Est GFR (CKD-EPI)AfAm >90 (>60 ml/min/1.73 sqM) Est GFR (CKD-EPI)NonAf >90 (>60 ml/min/1.73 sqM) Glucose 92 (74-99) mg/dL Plasma Lactic Acid Tray (0.7-2.0) mmol/L Calcium 8.8 (8.4-10.2) mg/dL Total Bilirubin 0.5 (0.2-1.3) mg/dL AST 27 (14-36) U/L ALT 13 (4-34) U/L Alkaline Phosphatase 40 (38-126) U/L Total Protein 6.8 (6.3-8.2) g/dL Albumin 3.7 (3.5-5.0) g/dL Amylase 75 (30-110) U/L Lipase 238 (23-300) U/L Urine Color Light Yellow Urine Appearance Clear (Clear) Urine pH 7.0 (5.0-8.0) Ur Specific [place] 1.008 (1.001-1.035) Urine Protein Negative (Negative) Urine Glucose (UA) Negative (Negative) Urine Ketones Negative (Negative) Urine Blood Negative (Negative) Urine Nitrite Negative (Negative) Urine Bilirubin Negative (Negative) Urine Urobilinogen <2.0 (<2.0) mg/dL Ur Leukocyte Esterase Negative (Negative) Urine RBC (0-5) /hpf Urine WBC (0-5) /hpf Ur Squamous Epith Cells (0-4) /hpf Urine Bacteria (None) /hpf Urine Mucus (None) /hpf Urine HCG, Qual (Not Detectd) 08/30/21 Range/Units 12:55 WBC (3.8-10.6) k/uL RBC (3.80-5.40) m/uL Hgb (11.4-16.0) gm/dL Hct (34.0-46.0) % MCV (80.0-100.0) fL MCH (25.0-35.0) pg MCHC (31.0-37.0) g/dL RDW (11.5-15.5) % Plt Count (150-450) k/uL MPV Neutrophils % % Lymphocytes % % Monocytes % % Eosinophils % % Basophils % % Neutrophils # (1.3-7.7) k/uL Lymphocytes # (1.0-4.8) k/uL Monocytes # (0-1.0) k/uL Eosinophils # (0-0.7) k/uL Basophils # (0-0.2) k/uL Hypochromasia Anisocytosis PT (9.0-12.0) sec INR (<1.2) APTT (22.0-30.0) sec Sodium (137-145) mmol/L Potassium (3.5-5.1) mmol/L Chloride (98-107) mmol/L Carbon Dioxide (22-30) mmol/L Anion Gap mmol/L BUN (7-17) mg/dL Creatinine (0.52-1.04) mg/dL Est GFR (CKD-EPI)AfAm (>60 ml/min/1.73 sqM) Est GFR (CKD-EPI)NonAf (>60 ml/min/1.73 sqM) Glucose (74-99) mg/dL Plasma Lactic Acid Tray 1.1 (0.7-2.0) mmol/L Calcium (8.4-10.2) mg/dL Total Bilirubin (0.2-1.3) mg/dL AST (14-36) U/L ALT (4-34) U/L Alkaline Phosphatase (38-126) U/L Total Protein (6.3-8.2) g/dL Albumin (3.5-5.0) g/dL Amylase (30-110) U/L Lipase (23-300) U/L Urine Color Urine Appearance (Clear) Urine pH (5.0-8.0) Ur Specific [place] (1.001-1.035) Urine Protein (Negative) Urine Glucose (UA) (Negative) Urine Ketones (Negative) Urine Blood (Negative) Urine Nitrite (Negative) Urine Bilirubin (Negative) Urine Urobilinogen (<2.0) mg/dL Ur Leukocyte Esterase (Negative) Urine RBC (0-5) /hpf Urine WBC (0-5) /hpf Ur Squamous Epith Cells (0-4) /hpf Urine Bacteria (None) /hpf Urine Mucus (None) /hpf Urine HCG, Qual (Not Detectd) Disposition Clinical Impression: Flank pain Disposition: HOME SELF-CARE Condition: Fair Instructions (If sedation given, give patient instructions): Flank Pain (ED) Is patient prescribed a controlled substance at d/c from ED?: No Referrals: None,Stated [Primary Care Provider] - 1-2 days He Robb MD [STAFF PHYSICIAN] - 1-2 days
[2021-08-30 13:40] LABS: Anisocytosis Slight; Basophils % (A) 1 %; Eosinophils # (A) 0.3 k/uL (0-0.7); Eosinophils % (A) 5 %; HGB 10.6 gm/dL (11.4-16.0); Hypochromasia Slight; Lymphocytes # (A) 1.2 k/uL (1.0-4.8); Lymphocytes % (A) 24 %; MCH 26.6 pg (25.0-35.0); MCHC 31.3 g/dL (31.0-37.0); MCV 84.9 fL (80.0-100.0); Mean Platelet Volume 7.5; Monocytes # (A) 0.4 k/uL (0-1.0); Monocytes % (A) 7 %; Neutrophils % (A) 61 %; Platelet Count 194 k/uL (150-450); RDW 17.7 % (11.5-15.5); WBC 4.9 k/uL (3.8-10.6)
[2021-08-30 13:47] LABS: INR 0.9 (<1.2); Partial Thromboplastin Time 24.8 sec (22.0-30.0); Prothrombin Time 10.3 sec (9.0-12.0)
[2021-08-30 13:55] LABS: ALT 13 U/L (4-34); AST 27 U/L (14-36); African American GFR (CKD) >90 (>60 ml/min/1.73 sqM); Albumin 3.7 g/dL (3.5-5.0); Alkaline Phosphatase 40 U/L (38-126); Amylase 75 U/L (30-110); Anion Gap 2 mmol/L; Blood Urea Nitrogen 16 mg/dL (7-17); Calcium 8.8 mg/dL (8.4-10.2); Carbon Dioxide 27 mmol/L (22-30); Chloride 108 mmol/L (98-107); Glucose 92 mg/dL (74-99); Lipase 238 U/L (23-300); Non-African American GFR(CKD) >90 (>60 ml/min/1.73 sqM); Potassium 4.6 mmol/L (3.5-5.1); Sodium 137 mmol/L (137-145); Total Bilirubin 0.5 mg/dL (0.2-1.3); Total Protein 6.8 g/dL (6.3-8.2)
[2021-08-30 14:05] LABS: Appearance,Urine Clear (Clear); Bilirubin,Urine Negative (Negative); Blood,Urine Negative (Negative); Color,Urine Light Yellow; Glucose,Urine (UA) Negative (Negative); Ketones,Urine Negative (Negative); Leukocyte Esterase,Urine Negative (Negative); Nitrite,Urine Negative (Negative); Protein,Urine Negative (Negative); Specific Gravity,Urine 1.008 (1.001-1.035); Urobilinogen,Urine <2.0 mg/dL (<2.0)
--- NOTE | 2021-08-30 14:21 | CT ---
EXAMINATION TYPE: CT abdomen pelvis wo con DATE OF EXAM: 08/30/2021 COMPARISON: CT dated 08/13/2021 HISTORY: Right flank pain CT DLP: 1102.4 mGycm Automated exposure control for dose reduction was used. TECHNIQUE: Helical acquisition of images was performed from the lung bases through the pelvis. FINDINGS: LUNG BASES: No significant abnormality is appreciated. LIVER/GB: Unremarkable liver. Nondistended gallbladder. PANCREAS: No significant abnormality is seen. SPLEEN: No significant abnormality is seen. ADRENALS: No significant abnormality is seen. KIDNEYS: Unremarkable kidneys. No hydroureter or hydronephrosis. FREE AIR: No free air is visualized RETROPERITONEAL ADENOPATHY: None visualized REPRODUCTIVE ORGANS: No gross uterine or adnexal mass yet suboptimally assessed. URINARY BLADDER: No significant abnormality is seen. PELVIC ADENOPATHY: None visualized. OSSEOUS STRUCTURES: Degenerative changes of the lower thoracic spine. No aggressive bone lesion. BOWEL: No significant abnormality is seen. OTHER: Small amount of free pelvic fluid. Lumbar peritoneal shunt is seen, unchanged in position. Sma ll amount of fluid is seen at the posterior aspect of the lumbar spine, appreciated previously. Minim al fat stranding is seen in the peritoneum, peritonitis cannot be excluded, please relate clinically. Stable fat-containing hernia within the right side of the anterior abdominal wall, seen between the anterior abdominal wall muscles. IMPRESSION: Known lumbar peritoneal shunt as described above. Minimal fat stranding involving the peritoneum, mil d peritonitis cannot be excluded. Small amount of free pelvic fluid. No definite acute abnormality se en in the abdomen or the pelvis otherwise. Incidental findings as described above.
== END 2021-08-30 14:55 | disposition home or self-care (01) ==
LOC: EC 11:24
DX: R10.9 Unspecified abdominal pain (principal); I10 Essential (primary) hypertension; F17.200 Nicotine dependence, unspecified, uncomplicated; Z91.041 Radiographic dye allergy status; Z91.040 Latex allergy status; Z88.8 Allergy status to other drugs, medicaments and biological substances; Z88.9 Allergy status to unspecified drugs, medicaments and biological substances; Z88.1 Allergy status to other antibiotic agents
CPT/HCPCS: 36415; 80053; 82150; 83605; 83690; 85025; 85610; 85730; 81003; 81001; 81025; 74176; 99284; 96374; 96361; J1170

== ENCOUNTER 2021-09-01 15:23 | Emergency (ER) | payer OTHER, MEDICARE ==
[2021-09-01 15:31] VITALS: PULSE 108; RESP 20; TEMP 97.9
[2021-09-01 18:39] VITALS: BP 126/78
[2021-09-01 18:57] LABS: ALT 12 U/L (4-34); AST 18 U/L (14-36); African American GFR (CKD) >90 (>60 ml/min/1.73 sqM); Albumin 3.6 g/dL (3.5-5.0); Alkaline Phosphatase 48 U/L (38-126); Amylase 84 U/L (30-110); Anion Gap 3 mmol/L; Blood Urea Nitrogen 16 mg/dL (7-17); Calcium 8.9 mg/dL (8.4-10.2); Carbon Dioxide 27 mmol/L (22-30); Chloride 107 mmol/L (98-107); Glucose 86 mg/dL (74-99); Lipase 152 U/L (23-300); Non-African American GFR(CKD) >90 (>60 ml/min/1.73 sqM); Potassium 4.9 mmol/L (3.5-5.1); Sodium 137 mmol/L (137-145); Total Bilirubin 0.3 mg/dL (0.2-1.3); Total Protein 6.4 g/dL (6.3-8.2)
--- NOTE | 2021-09-01 20:06 | ED ---
Abdominal Pain HPI - General Chief Complaint: Abdominal Pain Stated Complaint: Abd pain,vomiting blood Time Seen by Provider: 09/01/21 18:05 Source: patient Mode of arrival: ambulatory Limitations: no limitations - History of Present Illness Initial Comments: 36-year-old female presents to the emergency department with reported abdominal pain. Patient is well-known to the emergency department. Has a history of intracranial hypertension and colitis. Patient has been seen several times for similar complaint. Reports that she began having nausea, vomiting and abdominal pain for the past few days. She states that she has seen blood in her stool and vomit. She has been taking her home omeprazole without any improvement in her nausea. The patient's has not followed up with primary care or GI. Patient states that morphine usually improves her symptoms. She denies any fevers. No sick contacts with similar symptoms. Denies eating any tainted foods. Denies concern for . No other alleviating, precipitating or modifying factors - Related Data Home Medications Medication Instructions Recorded Confirmed Gabapentin 800 mg PO TID 08/13/20 08/22/21 Prazosin [Minipress] 5 mg PO HS 08/13/20 08/22/21 hydrOXYzine pamoate [Vistaril] 50 mg PO QID PRN 08/13/20 08/22/21 traZODone HCL 300 mg PO HS 08/13/20 08/22/21 Cariprazine HCl [Vraylar] 4.5 mg PO DAILY 07/22/21 08/22/21 Divalproex ER [Depakote ER] 500 mg PO BID 07/22/21 08/22/21 OLANZapine [ZyPREXA] 10 mg PO BID 07/22/21 08/22/21 Cetirizine HCl [Zyrtec] 10 mg PO DAILY PRN 08/22/21 08/22/21 DULoxetine HCL [Cymbalta] 90 mg PO DAILY 08/22/21 08/22/21 Famotidine [Pepcid] 20 mg PO BID 08/22/21 08/22/21 Allergies Allergy/AdvReac Type Severity Reaction Status Date / Time Iodinated Contrast Media Allergy Rash/Hives Verified 09/01/21 15:31 iodine Allergy Rash/Hives Verified 09/01/21 15:31 ketorolac [From Toradol] Allergy Anaphylaxis Verified 09/01/21 15:31 latex Allergy Anaphylaxis Verified 09/01/21 15:31 metoclopramide [From Reglan] Allergy Unknown Verified 09/01/21 15:31 prochlorperazine Allergy Unknown Verified 09/01/21 15:31 [From Compazine] sumatriptan [From Imitrex] Allergy Unknown Verified 09/01/21 15:31 vancomycin AdvReac red man Verified 09/01/21 15:31 syndrome Review of Systems ROS Statement: Those systems with pertinent positive or pertinent negative responses have been documented in the HPI. ROS Other: All systems not noted in ROS Statement are negative. Past Medical History Past Medical History: Seizure Disorder Additional Past Medical History / Comment(s): intracranial hypertension, colitis, gastritis History of Any Multi-Drug Resistant Organisms: MRSA Date of last positivie culture/infection: L ear MDRO Source:: 2011 Past Surgical History: Back Surgery Additional Past Surgical History / Comment(s): brain shunt Past Psychological History: Bipolar, PTSD Smoking Status: Current every day smoker Past Alcohol Use History: Rare Past Drug Use History: Marijuana General Exam Limitations: no limitations General appearance: alert, in no apparent distress Head exam: Present: atraumatic, normocephalic, normal inspection Eye exam: Present: normal appearance, PERRL, EOMI. Absent: scleral icterus, conjunctival injection, periorbital swelling ENT exam: Present: normal exam, mucous membranes moist Neck exam: Present: normal inspection. Absent: tenderness, meningismus, lymphadenopathy Respiratory exam: Present: normal lung sounds bilaterally. Absent: respiratory distress, wheezes, rales, rhonchi, stridor Cardiovascular Exam: Present: regular rate, normal rhythm, normal heart sounds. Absent: systolic murmur, diastolic murmur, rubs, gallop, clicks GI/Abdominal exam: Present: soft, normal bowel sounds. Absent: distended, ten derness, guarding, rebound, rigid Extremities exam: Present: normal inspection, full ROM, normal capillary refill. Absent: tenderness, pedal edema, joint swelling, calf tenderness Back exam: Present: normal inspection Neurological exam: Present: alert, oriented X3, CN II-XII intact Psychiatric exam: Present: normal affect, normal mood Skin exam: Present: warm, dry, intact, normal color. Absent: rash Course Vital Signs 09/01/21 09/01/21 09/01/21 15:28 18:25 18:30 Temperature 97.9 F Pulse Rate 108 H Respiratory 20 Rate Blood Pressure 130/78 144/91 144/92 O2 Sat by Pulse 98 Oximetry 09/01/21 18:35 Temperature Pulse Rate Respiratory Rate Blood Pressure 126/78 O2 Sat by Pulse Oximetry Medical Decision Making - Medical Decision Making Upon arrival patient is placed into room 22. A thorough history and physical exam was performed. Rectal exam is performed. Occult is negative for blood. Laboratory studies are within normal limits. Hemoglobin is 11.1 today which is improved from last value of 10.6. I did offer patient Zofran, Protonix and tramadol. Patient states that Tylenol does not help her symptoms and is requesting Dilaudid. I informed the patient that I am unable to treat her chronic symptoms with narcotics. Patient becomes upset at this time and is requesting to leave without any further treatment. Patient is informed that she will be leaving AGAINST MEDICAL ADVICE. Patient understood and was discharged in stable condition - Lab Data Result diagrams: 09/01/21 20:37 09/01/21 18:20 Lab Results 09/01/21 09/01/21 09/01/21 Range/Units 18:20 20:37 20:37 WBC 4.7 (3.8-10.6) k/uL RBC 4.16 (3.80-5.40) m/uL Hgb 11.1 L (11.4-16.0) gm/dL Hct 35.0 (34.0-46.0) % MCV 84.2 (80.0-100.0) fL MCH 26.6 (25.0-35.0) pg MCHC 31.7 (31.0-37.0) g/dL RDW 18.1 H (11.5-15.5) % Plt Count 172 (150-450) k/uL MPV 7.8 Neutrophils % (Manual) 57 % Lymphocytes % 30 % Lymphocytes % (Manual) 36 % Monocytes % 6 % Monocytes % (Manual) 2 % Eosinophils % 6 % Eosinophils % (Manual) 5 % Basophils % 0 % Neutrophils # 2.5 (1.3-7.7) k/uL Neutrophils # (Manual) 2.68 (1.3-7.7) k/uL Lymphocytes # 1.4 (1.0-4.8) k/uL Lymphocytes # (Manual) 1.69 (1.0-4.8) k/uL Monocytes # 0.3 (0-1.0) k/uL Monocytes # (Manual) 0.09 (0-1.0) k/uL Eosinophils # 0.3 (0-0.7) k/uL Eosinophils # (Manual) 0.24 (0-0.7) k/uL Basophils # 0.0 (0-0.2) k/uL Nucleated RBCs 0 (0-0) /100 WBC Manual Slide Review Performed Hypochromasia Slight Poikilocytosis (manual Present Anisocytosis Slight Ovalocytes Present Sodium 137 (137-145) mmol/L Potassium 4.9 (3.5-5.1) mmol/L Chloride 107 (98-107) mmol/L Carbon Dioxide 27 (22-30) mmol/L Anion Gap 3 mmol/L BUN 16 (7-17) mg/dL Creatinine 0.73 (0.52-1.04) mg/dL Est GFR (CKD-EPI)AfAm >90 (>60 ml/min/1.73 sqM) Est GFR (CKD-EPI)NonAf >90 (>60 ml/min/1.73 sqM) Glucose 86 (74-99) mg/dL Calcium 8.9 (8.4-10.2) mg/dL Total Bilirubin 0.3 (0.2-1.3) mg/dL AST 18 (14-36) U/L ALT 12 (4-34) U/L Alkaline Phosphatase 48 (38-126) U/L Total Protein 6.4 (6.3-8.2) g/dL Albumin 3.6 (3.5-5.0) g/dL Amylase 84 (30-110) U/L Lipase 152 (23-300) U/L Stool Occult Blood Negative (Negative) Disposition Clinical Impression: Drug-seeking behavior, Abdominal pain, Enteritis, Narcotic addiction Disposition: Left Against Medical Advice Condition: Undetermined Additional Instructions: You did not stay through the remainder of your results and therefore you are leaving AGAINST MEDICAL ADVICE. Is patient prescribed a controlled substance at d/c from ED?: No Referrals: None,Stated [Primary Care Provider] - 1-2 days Time of Disposition: 21:36
[2021-09-01] MEDS ORDERED: PANTOPRAZOLE 40 MG/10 ML VIAL IVP STA ×2 (20:36)
[2021-09-01] MEDS ORDERED: ONDANSETRON 4 MG/2 ML VIAL IVP STA (20:36)
[2021-09-01] MEDS ORDERED: ONDANSETRON 4 MG/2 ML VIAL IVP ONE (20:37)
[2021-09-01] MEDS ORDERED: traMADol 50 MG TAB PO STA ×2 (20:37→20:38)
[2021-09-01 20:58] LABS: Basophils % (A) 0 %; Eosinophils # (A) 0.3 k/uL (0-0.7); Eosinophils % (A) 6 %; Lymphocytes # (A) 1.4 k/uL (1.0-4.8); Lymphocytes % (A) 30 %; Monocytes # (A) 0.3 k/uL (0-1.0); Monocytes % (A) 6 %; Neutrophils # (A) 2.5 k/uL (1.3-7.7)
[2021-09-01 21:07] LABS: Anisocytosis Slight; HGB 11.1 gm/dL (11.4-16.0); Hypochromasia Slight; MCH 26.6 pg (25.0-35.0); MCHC 31.7 g/dL (31.0-37.0); MCV 84.2 fL (80.0-100.0); Mean Platelet Volume 7.8; Platelet Count 172 k/uL (150-450); RBC 4.16 m/uL (3.80-5.40); RDW 18.1 % (11.5-15.5); WBC 4.7 k/uL (3.8-10.6)
[2021-09-01 21:27] LABS: Eosinophils # (M) 0.24 k/uL (0-0.7); Lymphocytes # (M) 1.69 k/uL (1.0-4.8); Monocytes # (M) 0.09 k/uL (0-1.0); Neutrophils # (M) 2.68 k/uL (1.3-7.7); Neutrophils % (M) 57 %; Nucleated Red Blood Cells 0 /100 WBC (0-0); Total Cells Counted 100
[2021-09-01 21:28] LABS: Ovalocytes Present; Poikilocytosis (M) Present
--- NOTE | 2021-09-01 21:57 | XR ---
EXAMINATION TYPE: XR KUB DATE OF EXAM: 09/01/2021 8:48 PM CLINICAL HISTORY: Abdominal pain and vomiting blood TECHNIQUE: 2 upright views COMPARISON: None. FINDINGS: Catheter seen over the left upper quadrant and right midabdomen. Scattered gas is seen in non-distended small bowel loops. Gas and fecal material is seen in non-diste nded colon. There is no visceromegaly, pneumoperitoneum, or abnormal calcification appreciated. The lung bases are clear and the osseous structures are intact. IMPRESSION: No acute radiographic process.
== END 2021-09-01 21:57 | disposition left against medical advice (07) ==
LOC: EC 15:23
DX: F11.20 Opioid dependence, uncomplicated (principal); K52.9 Noninfective gastroenteritis and colitis, unspecified; Z76.5 Malingerer [conscious simulation]; F17.200 Nicotine dependence, unspecified, uncomplicated; I10 Essential (primary) hypertension; Z91.041 Radiographic dye allergy status; Z88.6 Allergy status to analgesic agent; Z91.040 Latex allergy status; Z88.8 Allergy status to other drugs, medicaments and biological substances; Z88.9 Allergy status to unspecified drugs, medicaments and biological substances; Z88.1 Allergy status to other antibiotic agents
CPT/HCPCS: 36415; 74018; 80053; 82150; 82272; 83690; 85025; 99285

== ENCOUNTER 2021-09-06 16:56 | Emergency (ER) | payer MEDICARE, OTHER ==
[2021-09-06 17:29] VITALS: RESP 18
[2021-09-07 02:14] LABS: Anisocytosis Slight; Basophils % (A) 0 %; Eosinophils # (A) 0.4 k/uL (0-0.7); Eosinophils % (A) 5 %; HCT 34.6 % (34.0-46.0); HGB 10.8 gm/dL (11.4-16.0); Hypochromasia Slight; Lymphocytes # (A) 1.5 k/uL (1.0-4.8); Lymphocytes % (A) 21 %; MCH 27.1 pg (25.0-35.0); MCHC 31.1 g/dL (31.0-37.0); Mean Platelet Volume 7.5; Monocytes # (A) 0.5 k/uL (0-1.0); Monocytes % (A) 7 %; Neutrophils # (A) 4.6 k/uL (1.3-7.7); Neutrophils % (A) 63 %; Platelet Count 194 k/uL (150-450); RBC 3.97 m/uL (3.80-5.40); RDW 18.3 % (11.5-15.5); WBC 7.3 k/uL (3.8-10.6)
--- NOTE | 2021-09-07 02:31 | ED ---
General Adult HPI - General Chief complaint: Headache Stated complaint: Headache, Fever Time Seen by Provider: 09/07/21 02:19 Source: patient, RN notes reviewed Mode of arrival: ambulatory Limitations: no limitations - History of Present Illness Initial comments: 36-year-old female presents to the emergency department for evaluation of headache and nausea, onset yesterday. Complains of nausea and sensitivity to light as well. Took Zofran and Motrin prior to arrival with no improvement. Patient states she has been seen multiple times this month for the same complaints. 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 Denies fever, chills, and dizziness, chest pain, shortness of breath, cough, congestion, abdominal pain, vomiting, diarrhea, or dysuria. - Related Data Home Medications Medication Instructions Recorded Confirmed Gabapentin 800 mg PO TID 08/13/20 08/22/21 Prazosin [Minipress] 5 mg PO HS 08/13/20 08/22/21 hydrOXYzine pamoate [Vistaril] 50 mg PO QID PRN 08/13/20 08/22/21 traZODone HCL 300 mg PO HS 08/13/20 08/22/21 Cariprazine HCl [Vraylar] 4.5 mg PO DAILY 07/22/21 08/22/21 Divalproex ER [Depakote ER] 500 mg PO BID 07/22/21 08/22/21 OLANZapine [ZyPREXA] 10 mg PO BID 07/22/21 08/22/21 Cetirizine HCl [Zyrtec] 10 mg PO DAILY PRN 08/22/21 08/22/21 DULoxetine HCL [Cymbalta] 90 mg PO DAILY 08/22/21 08/22/21 Famotidine [Pepcid] 20 mg PO BID 08/22/21 08/22/21 Allergies Allergy/AdvReac Type Severity Reaction Status Date / Time haloperidol Allergy Anaphylaxis Verified 09/06/21 17:29 Iodinated Contrast Media Allergy Rash/Hives Verified 09/01/21 15:31 iodine Allergy Rash/Hives Verified 09/01/21 15:31 ketorolac [From Toradol] Allergy Anaphylaxis Verified 09/01/21 15:31 latex Allergy Anaphylaxis Verified 09/01/21 15:31 metoclopramide [From Reglan] Allergy Unknown Verified 09/01/21 15:31 prochlorperazine Allergy Unknown Verified 09/01/21 15:31 [From Compazine] sumatriptan [From Imitrex] Allergy Unknown Verified 09/01/21 15:31 vancomycin AdvReac red man Verified 09/01/21 15:31 syndrome Review of Systems ROS Statement: Those systems with pertinent positive or pertinent negative responses have been documented in the HPI. ROS Other: All systems not noted in ROS Statement are negative. Past Medical History Past Medical History: Seizure Disorder Additional Past Medical History / Comment(s): intracranial hypertension, colitis, gastritis History of Any Multi-Drug Resistant Organisms: MRSA Date of last positivie culture/infection: L ear MDRO Source:: 2011 Past Surgical History: Back Surgery Additional Past Surgical History / Comment(s): brain shunt Past Psychological History: Bipolar, PTSD Smoking Status: Current every day smoker Past Alcohol Use History: Rare Past Drug Use History: Marijuana General Exam Limitations: no limitations (Well-developed, well-nourished female in no acute distress. 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 Absent: scleral icterus, conjunctival injection, periorbital swelling Pupils: Present: other (+photosensitivity) Neck exam: Present: normal inspection, full ROM. Absent: tenderness, meningi smus, lymphadenopathy Respiratory exam: Present: normal lung sounds bilaterally. Absent: respiratory distress, wheezes, rales, rhonchi, stridor, chest wall tenderness Cardiovascular Exam: Present: regular rate, normal rhythm, normal heart sounds. Absent: systolic murmur, diastolic murmur, rubs, gallop, clicks GI/Abdominal exam: Present: soft, normal bowel sounds. Absent: distended, tenderness, guarding, rebound, rigid Neurological exam: Present: alert, oriented X3, CN II-XII intact, normal gait Psychiatric exam: Present: flat affect Skin exam: Present: warm, dry, intact, normal color Course Vital Signs 09/06/21 09/07/21 17:24 02:32 Temperature 98.2 F 98.3 F Pulse Rate 74 62 Respiratory 18 18 Rate Blood Pressure 139/90 124/71 O2 Sat by Pulse 99 100 Oximetry Medical Decision Making - Medical Decision Making 36-year-old female with a past medical history of brain surgery and IND[employer]RI[employer] RE[employer]ERATION MECH[employer]IC shunt presents to the emergency Department with complaints of headache, nausea, and photosensitivity. Patient is well-known to this department and has had multiple visits this month. Upon exam, patient is well-appearing and in no acute distress. She is able to move freely and ambulate without difficulty. She is afebrile with stable vital signs. Laboratory studies were reviewed and are unremarkable. Patient does have multiple medication ALLERGIES; headache cocktail was given with Benadryl and Zofran. She did have some improvement. Patient does demonstrate behavior concerning for drug-seeking. She will be discharged home; explained importance of establishing with primary care as well as neurology and encouraged close follow-up. Return parameters discussed in detail. Patient verbalizes understanding and agrees with this plan. Attending: Sebastien. - Lab Data Result diagrams: 09/07/21 01:42 09/07/21 01:42 Lab Results 09/07/21 09/07/21 09/07/21 Range/Units 01:42 01:42 01:42 WBC 7.3 (3.8-10.6) k/uL RBC 3.97 (3.80-5.40) m/uL Hgb 10.8 L (11.4-16.0) gm/dL Hct 34.6 (34.0-46.0) % MCV 87.0 (80.0-100.0) fL MCH 27.1 (25.0-35.0) pg MCHC 31.1 (31.0-37.0) g/dL RDW 18.3 H (11.5-15.5) % Plt Count 194 (150-450) k/uL MPV 7.5 Neutrophils % 63 % Lymphocytes % 21 % Monocytes % 7 % Eosinophils % 5 % Basophils % 0 % Neutrophils # 4.6 (1.3-7.7) k/uL Lymphocytes # 1.5 (1.0-4.8) k/uL Monocytes # 0.5 (0-1.0) k/uL Eosinophils # 0.4 (0-0.7) k/uL Basophils # 0.0 (0-0.2) k/uL Hypochromasia Slight Anisocytosis Slight Sodium 137 (137-145) mmol/L Potassium 3.9 (3.5-5.1) mmol/L Chloride 108 H (98-107) mmol/L Carbon Dioxide 24 (22-30) mmol/L Anion Gap 5 mmol/L BUN 15 (7-17) mg/dL Creatinine 0.57 (0.52-1.04) mg/dL Est GFR (CKD-EPI)AfAm >90 (>60 ml/min/1.73 sqM) Est GFR (CKD-EPI)NonAf >90 (>60 ml/min/1.73 sqM) Glucose 92 (74-99) mg/dL Calcium 8.4 (8.4-10.2) mg/dL Total Bilirubin 0.4 (0.2-1.3) mg/dL AST 31 (14-36) U/L ALT 30 (4-34) U/L Alkaline Phosphatase 77 (38-126) U/L Total Protein 6.6 (6.3-8.2) g/dL Albumin 3.6 (3.5-5.0) g/dL Coronavirus (PCR) Not Detected (Not Detectd) Disposition Clinical Impression: Headache Disposition: HOME SELF-CARE Condition: Stable Instructions (If sedation given, give patient instructions): Acute Headache (ED) Additional Instructions: Please establish with primary care and neurology for further evaluation and treatment. Continue taking your home medications as prescribed. Return to the emergency department with any new, worsening, or concerning symptoms. Is patient prescribed a controlled substance at d/c from ED?: No Referrals: [facility] [Primary Care Provider] - 1-2 days Time of Disposition: 03:24
[2021-09-07 02:33] VITALS: BP 124/71; PULSE 62; TEMP 98.3
[2021-09-07 02:37] LABS: ALT 30 U/L (4-34); AST 31 U/L (14-36); African American GFR (CKD) >90 (>60 ml/min/1.73 sqM); Albumin 3.6 g/dL (3.5-5.0); Alkaline Phosphatase 77 U/L (38-126); Anion Gap 5 mmol/L; Blood Urea Nitrogen 15 mg/dL (7-17); Calcium 8.4 mg/dL (8.4-10.2); Carbon Dioxide 24 mmol/L (22-30); Chloride 108 mmol/L (98-107); Glucose 92 mg/dL (74-99); Non-African American GFR(CKD) >90 (>60 ml/min/1.73 sqM); Potassium 3.9 mmol/L (3.5-5.1); Sodium 137 mmol/L (137-145); Total Bilirubin 0.4 mg/dL (0.2-1.3); Total Protein 6.6 g/dL (6.3-8.2)
[2021-09-07] MEDS ORDERED: ONDANSETRON 4 MG/2 ML VIAL IVP STA (02:49)
[2021-09-07] MEDS ORDERED: diphenhydrAMINE 50 MG/ML 1 ML VIAL IVP STA ×2 (02:49→03:20)
== END 2021-09-07 03:43 | disposition home or self-care (01) ==
LOC: EC 16:56
DX: R51.9 Headache, unspecified (principal); R50.9 Fever, unspecified; F17.200 Nicotine dependence, unspecified, uncomplicated; G93.2 Benign intracranial hypertension; Z79.899 Other long term (current) drug therapy; Z88.8 Allergy status to other drugs, medicaments and biological substances; Z91.041 Radiographic dye allergy status; Z88.6 Allergy status to analgesic agent; Z91.040 Latex allergy status; Z88.1 Allergy status to other antibiotic agents; Z20.822 Contact with and (suspected) exposure to COVID-19
CPT/HCPCS: 36415; 80053; 85025; 87635; 99284; 96374; 96375; J1200; J2405

== ENCOUNTER 2021-09-10 14:44 | Emergency (ER) | payer MEDICARE, OTHER ==
[2021-09-10 14:49] VITALS: TEMP 97.6
[2021-09-10] MEDS ORDERED: diphenhydrAMINE 50 MG/ML 1 ML VIAL IVP STA (15:54)
[2021-09-10] MEDS ORDERED: ACETAMINOPHEN TAB 325 MG TAB PO STA (15:54)
[2021-09-10] MEDS ORDERED: SODIUM CHLORIDE 0.9% 1,000 ML IV STA (15:54)
[2021-09-10] MEDS ORDERED: DEXAMETHASONE SOD PHOSPHATE 10 MG/ML 1 ML VIAL IV STA (15:54)
[2021-09-10] MEDS ORDERED: ONDANSETRON 4 MG/2 ML VIAL IVP STA (15:54)
--- NOTE | 2021-09-10 16:13 | ED ---
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 Patient is well-known to her facility. Comes in complaining of a headache since yesterday. She normally takes Zofran at home for her headaches and has not had any improvement. She admits to photophobia. No neck pain or stiffness. No fevers. Admits nausea without vomiting. Patient is not currently following with a neurosurgeon. States her shunt was last revised 4 years ago. has not follow-up with her surgeon. She denies any chest pain or shortness of breath. No abdominal pain. No unilateral numbness or weakness. No concern for . No other alleviating, precipitating or modifying factors (Raeann He) - Related Data Home Medications Medication Instructions Recorded Confirmed Gabapentin 800 mg PO TID 08/13/20 08/22/21 Prazosin [Minipress] 5 mg PO HS 08/13/20 08/22/21 hydrOXYzine pamoate [Vistaril] 50 mg PO QID PRN 08/13/20 08/22/21 traZODone HCL 300 mg PO HS 08/13/20 08/22/21 Cariprazine HCl [Vraylar] 4.5 mg PO DAILY 07/22/21 08/22/21 Divalproex ER [Depakote ER] 500 mg PO BID 07/22/21 08/22/21 OLANZapine [ZyPREXA] 10 mg PO BID 07/22/21 08/22/21 Cetirizine HCl [Zyrtec] 10 mg PO DAILY PRN 08/22/21 08/22/21 DULoxetine HCL [Cymbalta] 90 mg PO DAILY 08/22/21 08/22/21 Famotidine [Pepcid] 20 mg PO BID 08/22/21 08/22/21 Allergies Allergy/AdvReac Type Severity Reaction Status Date / Time haloperidol Allergy Anaphylaxis Verified 09/10/21 14:49 Iodinated Contrast Media Allergy Rash/Hives Verified 09/10/21 14:49 iodine Allergy Rash/Hives Verified 09/10/21 14:49 ketorolac [From Toradol] Allergy Anaphylaxis Verified 09/10/21 14:49 latex Allergy Anaphylaxis Verified 09/10/21 14:49 metoclopramide [From Reglan] Allergy Unknown Verified 09/10/21 14:49 prochlorperazine Allergy Unknown Verified 09/10/21 14:49 [From Compazine] sumatriptan [From Imitrex] Allergy Unknown Verified 09/10/21 14:49 vancomycin AdvReac red man Verified 09/10/21 14:49 syndrome Review of Systems ROS Other: All systems not noted in ROS Statement are negative. <Tien Rubalcava - Last Filed: 09/10/21 18:19> ROS Other: All systems not noted in ROS Statement are negative. <Raeann He - Last Filed: 09/12/21 00:34> ROS Statement: Those systems with pertinent positive or pertinent negative responses have been documented in the HPI. Past Medical History Past Medical History: Seizure Disorder Additional Past Medical History / Comment(s): intracranial hypertension, colitis, gastritis History of Any Multi-Drug Resistant Organisms: MRSA Date of last positivie culture/infection: L ear MDRO Source:: 2011 Past Surgical History: Back Surgery Additional Past Surgical History / Comment(s): brain shunt Past Psychological History: Bipolar, PTSD Smoking Status: Current every day smoker Past Alcohol Use History: Rare Past Drug Use History: Marijuana <Raeann He - Last Filed: 09/12/21 00:34> General Exam Limitations: no limitations General appearance: alert, in no apparent distress Head exam: Present: atraumatic, normocephalic, normal inspection Eye exam: Present: normal appearance, PERRL, EOMI. Absent: scleral icterus, conjunctival injection, periorbital swelling ENT exam: Present: normal exam, mucous membranes moist Neck exam: Present: normal inspection. Absent: tenderness, meningismus, lymphadenopathy Respiratory exam: Present: normal lung sounds bilaterally. Absent: respiratory distress, wheezes, rales, rhonchi, stridor Cardiovascular Exam: Present: regular rate, normal rhythm, normal heart sounds. Absent: systolic murmur, diastolic murmur, rubs, gallop, clicks GI/Abdominal exam: Present: soft, normal bowel sounds. Absent: distended, tenderness, guarding, rebound, rigid Extremities exam: Present: normal inspection, full ROM, normal capillary refill. Absent: tenderness, pedal edema, joint swelling, calf tenderness Back exam: Present: normal inspection Neurological exam: Present: alert, oriented X3, CN II-XII intact Psychiatric exam: Present: normal affect, normal mood Skin exam: Present: warm, dry, intact, normal color. Absent: rash <Raeann He - Last Filed: 09/12/21 00:34> Course Vital Signs 09/10/21 09/10/21 14:46 18:00 Temperature 97.6 F Pulse Rate 87 80 Respiratory 20 18 Rate Blood Pressure 110/87 120/78 O2 Sat by Pulse 100 98 Oximetry Medical Decision Making - Lab Data Result diagrams: 09/10/21 16:35 09/10/21 16:35 <Tien Rubalcava - Last Filed: 09/10/21 18:19> - Lab Data Result diagrams: 09/10/21 16:35 09/10/21 16:35 <Raenan He - Last Filed: 09/12/21 00:34> - Medical Decision Making Upon arrival patient is placed into room 16. Thorough history of physical exam is performed. IV access was established and the patient is given Tylenol, Deca dron, Benadryl, Zofran and a liter bolus normal saline. Laboratory studies were conducted and reviewed. Patient is chronically anemic. Hemoglobin today is 9.7. I did CT the patient's head which demonstrates no acute process. Shunt series is performed which demonstrates no signs of malfunction patient's shunts. Chest x-ray was concerning for possible pneumothorax and therefore did repeat a AP lordotic view for which the pneumothorax is not seen. Patient will be discharged home and is instructed to establish care with a neurosurgeon. Return to the emergency room for any new or worsening symptoms. Patient agreed she would plan she is discharged home in stable condition (Raeann He) - Lab Data Lab Results 09/10/21 09/10/21 Range/Units 16:35 16:35 WBC 5.6 (3.8-10.6) k/uL RBC 3.71 L (3.80-5.40) m/uL Hgb 9.7 L (11.4-16.0) gm/dL Hct 31.6 L (34.0-46.0) % MCV 85.3 (80.0-100.0) fL MCH 26.0 (25.0-35.0) pg MCHC 30.5 L (31.0-37.0) g/dL RDW 18.4 H (11.5-15.5) % Plt Count 238 (150-450) k/uL MPV 7.2 Neutrophils % 68 % Lymphocytes % 18 % Monocytes % 7 % Eosinophils % 4 % Basophils % 0 % Neutrophils # 3.8 (1.3-7.7) k/uL Lymphocytes # 1.0 (1.0-4.8) k/uL Monocytes # 0.4 (0-1.0) k/uL Eosinophils # 0.2 (0-0.7) k/uL Basophils # 0.0 (0-0.2) k/uL Hypochromasia Moderate Anisocytosis Slight Sodium 141 (137-145) mmol/L Potassium 4.2 (3.5-5.1) mmol/L Chloride 111 H (98-107) mmol/L Carbon Dioxide 25 (22-30) mmol/L Anion Gap 5 mmol/L BUN 14 (7-17) mg/dL Creatinine 0.65 (0.52-1.04) mg/dL Est GFR (CKD-EPI)AfAm >90 (>60 ml/min/1.73 sqM) Est GFR (CKD-EPI)NonAf >90 (>60 ml/min/1.73 sqM) Glucose 106 H (74-99) mg/dL Calcium 8.6 (8.4-10.2) mg/dL Total Bilirubin 0.2 (0.2-1.3) mg/dL AST 16 (14-36) U/L ALT 20 (4-34) U/L Alkaline Phosphatase 64 (38-126) U/L Total Protein 6.2 L (6.3-8.2) g/dL Albumin 3.2 L (3.5-5.0) g/dL Disposition <Tien Rubalcava - Last Filed: 09/10/21 18:19> Is patient prescribed a controlled substance at d/c from ED?: No Time of Disposition: 18:13 <Raeann He - Last Filed: 09/12/21 00:34> Clinical Impression: Drug-seeking behavior, Migraine headache Disposition: HOME SELF-CARE Condition: Stable Instructions (If sedation given, give patient instructions): Acute Headache ( ED) Additional Instructions: Please follow up with your PCP in 2-4 days. I recommend you see a neurosurgeon about your shunt. Return to the ED for any new or worsening symptoms. Referrals: [facility] [Primary Care Provider] - 1-2 days Melchor Kerr MD [Medical Doctor] - As Soon As Possible
[2021-09-10 16:41] LABS: Anisocytosis Slight; Basophils % (A) 0 %; Eosinophils # (A) 0.2 k/uL (0-0.7); Eosinophils % (A) 4 %; HCT 31.6 % (34.0-46.0); HGB 9.7 gm/dL (11.4-16.0); Hypochromasia Moderate; Lymphocytes % (A) 18 %; MCHC 30.5 g/dL (31.0-37.0); MCV 85.3 fL (80.0-100.0); Mean Platelet Volume 7.2; Monocytes # (A) 0.4 k/uL (0-1.0); Monocytes % (A) 7 %; Neutrophils # (A) 3.8 k/uL (1.3-7.7); Neutrophils % (A) 68 %; Platelet Count 238 k/uL (150-450); RBC 3.71 m/uL (3.80-5.40); RDW 18.4 % (11.5-15.5); WBC 5.6 k/uL (3.8-10.6)
--- NOTE | 2021-09-10 17:13 | XR ---
EXAMINATION TYPE: XR chest 1V DATE OF EXAM: 09/10/2021 COMPARISON: 08/25/2021 HISTORY: Chest pain TECHNIQUE: Single frontal view of the chest is obtained. FINDINGS: There is a probable tiny left apical pneumothorax which was not identified previously. The lungs are clear. There is no pleural effusion. The heart and pulmonary vasculature are normal. Shunt catheter again seen and is unchanged. The osseous structures are intact. IMPRESSION: Cannot exclude development of a tiny left apical pneumothorax.
--- NOTE | 2021-09-10 17:14 | XR ---
Abdomen HISTORY: Headache for 5 days. COMPARISON: 07/19/2021. TECHNIQUE: Single upright view the abdomen was obtained. The lung bases are clear and there is no free intraperitoneal air. There is a shunt catheter within the abdomen. Bowel gas pattern is nonspecific. The osseous structures are intact. IMPRESSION: Shunt catheter within the abdomen. The bowel gas pattern is nonspecific and there is no evidence of o bstruction or free intraperitoneal air.
--- NOTE | 2021-09-10 17:16 | XR ---
Skull. HISTORY: Headache for findings. COMPARISON: None. TECHNIQUE: Skull were obtained. There is a ventricular shunt catheter in small poonam holes in the skull. There are no fractures or oth er focal intraosseous abnormality. The paranasal sinuses are well aerated. IMPRESSION: Ventricular shunt catheter and postsurgical changes. No other significant abnormality seen.
--- NOTE | 2021-09-10 17:34 | CT ---
EXAMINATION TYPE: CT brain wo con DATE OF EXAM: 09/10/2021 COMPARISON: 08/25/2021 HISTORY: Headache. Seizure. ventricular shunt catheter CT DLP: 1082.4 mGycm. Automated Exposure Control for Dose Reduction was Utilized. TECHNIQUE: CT scan of the head is performed without contrast. FINDINGS: The ventricular shunt catheter is again seen entering the right frontal bone and terminatin g in the anterior horn of the left lateral ventricle. Ventricles are not enlarged and there is no hyd rocephalus or shift of midline structures. There is been no change in size of ventricles or position of the catheter compared to the prior study. There is no acute intraparenchymal extra-axial hemorrhage. The posterior fossa is grossly normal. The intraorbital contents appear normal and symmetric. There is an air-fluid level in sphenoid sinus consistent with acute sinusitis. IMPRESSION: 1. No change in the ventricular shunt catheter. No hydronephrosis. 2. Interval development of marked acute sphenoid sinusitis.
[2021-09-10 17:48] LABS: ALT 20 U/L (4-34); AST 16 U/L (14-36); African American GFR (CKD) >90 (>60 ml/min/1.73 sqM); Albumin 3.2 g/dL (3.5-5.0); Alkaline Phosphatase 64 U/L (38-126); Anion Gap 5 mmol/L; Blood Urea Nitrogen 14 mg/dL (7-17); Calcium 8.6 mg/dL (8.4-10.2); Carbon Dioxide 25 mmol/L (22-30); Chloride 111 mmol/L (98-107); Glucose 106 mg/dL (74-99); Non-African American GFR(CKD) >90 (>60 ml/min/1.73 sqM); Potassium 4.2 mmol/L (3.5-5.1); Sodium 141 mmol/L (137-145); Total Bilirubin 0.2 mg/dL (0.2-1.3); Total Protein 6.2 g/dL (6.3-8.2)
--- NOTE | 2021-09-10 18:09 | XR ---
EXAMINATION TYPE: XR chest w ap lordotic DATE OF EXAM: 09/10/2021 COMPARISON: 09/10/2021 HISTORY: Rule out left pneumothorax TECHNIQUE: Frontal and lateral views of the chest are obtained. FINDINGS: The lordotic view of the chest reveals no evidence of pneumothorax bilaterally. The lungs are clear. The ventricular shunt catheter is again seen unchanged in position. There is no pleural effusion. The osseous structures are intact. IMPRESSION: 1. No evidence of pneumothorax. 2. No acute cardiopulmonary disease.
[2021-09-10 18:31] VITALS: BP 120/78; PULSE 80; RESP 18
== END 2021-09-10 18:36 | disposition home or self-care (01) ==
LOC: EC 14:44
DX: G43.909 Migraine, unspecified, not intractable, without status migrainosus (principal); Z76.5 Malingerer [conscious simulation]; I10 Essential (primary) hypertension; F17.200 Nicotine dependence, unspecified, uncomplicated; Z88.8 Allergy status to other drugs, medicaments and biological substances; Z91.041 Radiographic dye allergy status; Z88.6 Allergy status to analgesic agent; Z91.040 Latex allergy status; Z88.9 Allergy status to unspecified drugs, medicaments and biological substances; Z88.1 Allergy status to other antibiotic agents
CPT/HCPCS: 36415; 80053; 85025; 70250; 71045; 71047; 74018; 70450; 99284; 96374; 96375; 96361; J1200; J1100; J2405

== ENCOUNTER 2021-09-14 18:23 | Emergency (ER) | payer MEDICARE, OTHER ==
[2021-09-14 18:54] VITALS: BP 144/90; PULSE 99; RESP 18; TEMP 98.2
[2021-09-14] MEDS ORDERED: MORPHINE SULFATE 4 MG/ML SYRINGE IV STA ×2 (20:33→23:53)
[2021-09-14] MEDS ORDERED: ONDANSETRON 4 MG/2 ML VIAL IVP STA (20:33)
[2021-09-14] MEDS ORDERED: SODIUM CHLORIDE 0.9% 1,000 ML IV STA (20:33)
--- NOTE | 2021-09-14 20:37 | ED ---
Abdominal Pain HPI - General Chief Complaint: Abdominal Pain Stated Complaint: vomiting, abd pain, blood in stool Time Seen by Provider: 09/14/21 20:27 Source: patient, RN notes reviewed Mode of arrival: ambulatory Limitations: no limitations - History of Present Illness Initial Comments: This is a pleasant 36-year-old female presents to department complaining of pain in her left abdomen. Actually pain is close to the left lower quadrant. Patient's also had some looser stools with possible small amount of blood. Patient has nausea without vomiting. Patient started earlier today. Patient did take Tylenol this morning. Patient has a history of gastritis and states this feels similar. However the pain is lower than usual. Sharp in nature. No radiation. Exacerbated by palpation. No alleviating factors. Constant. No headache, no fever or chills, no changes in vision or hearing, no sore throat or difficulty with speech, no neck pain, no chest pain or shortness of breath, no vomiting, no changes in urination or bowel movements, no numbness or tingling, no extremity pain, no skin rashes or lesions. MD Complaint: abdominal pain - Related Data Home Medications Medication Instructions Recorded Confirmed Gabapentin 800 mg PO TID 08/13/20 09/14/21 Prazosin [Minipress] 5 mg PO HS 08/13/20 09/14/21 hydrOXYzine pamoate [Vistaril] 50 mg PO QID PRN 08/13/20 09/14/21 traZODone HCL 300 mg PO HS 08/13/20 09/14/21 Cariprazine HCl [Vraylar] 4.5 mg PO DAILY 07/22/21 09/14/21 Divalproex ER [Depakote ER] 500 mg PO BID 07/22/21 09/14/21 OLANZapine [ZyPREXA] 10 mg PO BID 07/22/21 09/14/21 Cetirizine HCl [Zyrtec] 10 mg PO DAILY PRN 08/22/21 09/14/21 DULoxetine HCL [Cymbalta] 90 mg PO DAILY 08/22/21 09/14/21 Famotidine [Pepcid] 20 mg PO BID 08/22/21 09/14/21 Allergies Allergy/AdvReac Type Severity Reaction Status Date / Time haloperidol Allergy Anaphylaxis Verified 09/14/21 18:54 Iodinated Contrast Media Allergy Rash/Hives Verified 09/14/21 18:54 iodine Allergy Rash/Hives Verified 09/14/21 18:54 ketorolac [From Toradol] Allergy Anaphylaxis Verified 09/14/21 18:54 latex Allergy Anaphylaxis Verified 09/14/21 18:54 metoclopramide [From Reglan] Allergy Unknown Verified 09/14/21 18:54 prochlorperazine Allergy Unknown Verified 09/14/21 18:54 [From Compazine] sumatriptan [From Imitrex] Allergy Unknown Verified 09/14/21 18:54 vancomycin AdvReac red man Verified 09/14/21 18:54 syndrome Review of Systems ROS Statement: Those systems with pertinent positive or pertinent negative responses have been documented in the HPI. ROS Other: All systems not noted in ROS Statement are negative. Past Medical History Past Medical History: Seizure Disorder Additional Past Medical History / Comment(s): intracranial hypertension, colitis, gastritis History of Any Multi-Drug Resistant Organisms: MRSA Date of last positivie culture/infection: L ear MDRO Source:: 2011 Past Surgical History: Back Surgery Additional Past Surgical History / Comment(s): brain shunt Past Psychological History: Bipolar, PTSD Smoking Status: Current every day smoker Past Alcohol Use History: Rare Past Drug Use History: Marijuana General Exam Limitations: no limitations General appearance: in distress Head exam: Present: atraumatic, normocephalic, normal inspection Eye exam: Present: normal appearance, PERRL, EOMI. Absent: scleral icterus, conjunctival injection, periorbital swelling ENT exam: Present: normal exam, mucous membranes moist Neck exam: Present: normal inspection. Absent: tenderness, meningismus, lymphadenopathy Respiratory exam: Present: normal lung sounds bilaterally. Absent: respiratory distress, wheezes, rales, rhonchi, stridor Cardiovascular Exam: Present: regular rate, normal rhythm, normal heart sounds. Absent: systolic murmur, diastolic murmur, rubs, gallop, clicks GI/Abdominal exam: Present: soft, tenderness (Left lower quadrant), guarding (Voluntary), normal bowel sounds. Absent: distended, rebound, rigid Extremities exam: Present: normal inspection, full ROM, normal capillary refill. Absent: tenderness, pedal edema, joint swelling, calf tenderness Back exam: Present: normal inspection Neurological exam: Present: alert, oriented X3, CN II-XII intact Psychiatric exam: Present: normal affect, normal mood Skin exam: Present: warm, dry, intact, normal color. Absent: rash Course Vital Signs 09/14/21 18:52 Temperature 98.2 F Pulse Rate 99 Respiratory 18 Rate Blood Pressure 144/90 O2 Sat by Pulse 99 Oximetry Medical Decision Making - Medical Decision Making Patient has pain tenderness and left lower quadrant. Differential would include diverticulitis, enteritis, I think is less likely ovarian pathology as the pain is quite high and there is no tenderness in the pelvis. She has no vaginal discharge or vaginal bleeding. There is no flank pain. Less likely to be ureteral colic. Not consistent with cardiopulmonary disease. Other intra- abdominal pathology is possible to include perforated bowel, constipation, will reevaluate pending workup. Patient's imaging shows no reason for the patient's left lower quadrant abdominal pain. Suspect the patient does have some level of enteritis. We will have patient follow up with gastroenterology. I see no indication for antibiotics at this point. Patient reevaluated prior to discharge is resting comfortably in the room. No distress, repeat abdominal exam is benign. Patient did ask for another dose of pain medication in case the pain comes back. Patient's computed tomography scan did show evidence of some fluid around the catheter new the spine. However the patient has no symptoms with regard to back pain. No headache. No neck stiffness. Patient does have a [employer] shunt which is known. Patient was told to return to the ER for any signs or symptoms worsen. Told to return immediately if any other problems arise. All questions answered. Treatment plan discussed. Patient in agreement Every effort has been made to ensure accuracy of this dictation. However, due to the limitations of electronic medical records and dictation devices, errors in charting still occur. Supervising physician Dr. Rowan - Lab Data Result diagrams: 09/14/21 20:59 09/14/21 20:59 Lab Results 09/14/21 09/14/21 09/14/21 Range/Units 20:59 20:59 20:59 WBC 7.5 (3.8-10.6) k/uL RBC 4.60 (3.80-5.40) m/uL Hgb 11.9 (11.4-16.0) gm/dL Hct 39.0 (34.0-46.0) % MCV 84.8 (80.0-100.0) fL MCH 25.9 (25.0-35.0) pg MCHC 30.6 L (31.0-37.0) g/dL RDW 17.8 H (11.5-15.5) % Plt Count 302 (150-450) k/uL MPV 7.0 Neutrophils % 67 % Lymphocytes % 21 % Monocytes % 7 % Eosinophils % 4 % Basophils % 0 % Neutrophils # 5.0 (1.3-7.7) k/uL Lymphocytes # 1.6 (1.0-4.8) k/uL Monocytes # 0.5 (0-1.0) k/uL Eosinophils # 0.3 (0-0.7) k/uL Basophils # 0.0 (0-0.2) k/uL Hypochromasia Moderate Anisocytosis Slight Sodium 138 (137-145) mmol/L Potassium 3.7 (3.5-5.1) mmol/L Chloride 104 (98-107) mmol/L Carbon Dioxide 28 (22-30) mmol/L Anion Gap 6 mmol/L BUN 12 (7-17) mg/dL Creatinine 0.63 (0.52-1.04) mg/dL Est GFR (CKD-EPI)AfAm >90 (>60 ml/min/1.73 sqM) Est GFR (CKD-EPI)NonAf >90 (>60 ml/min/1.73 sqM) Glucose 111 H (74-99) mg/dL Calcium 9.6 (8.4-10.2) mg/dL Total Bilirubin 0.4 (0.2-1.3) mg/dL AST 18 (14-36) U/L ALT 17 (4-34) U/L Alkaline Phosphatase 71 (38-126) U/L Total Protein 7.6 (6.3-8.2) g/dL Albumin 4.2 (3.5-5.0) g/dL Lipase 207 (23-300) U/L Urine Color Yellow Urine Appearance Clear (Clear) Urine pH 7.0 (5.0-8.0) Ur Specific [place] 1.019 (1.001-1.035) Urine Protein Negative (Negative) Urine Glucose (UA) Negative (Negative) Urine Ketones Negative (Negative) Urine Blood Negative (Negative) Urine Nitrite Negative (Negative) Urine Bilirubin Negative (Negative) Urine Urobilinogen <2.0 (<2.0) mg/dL Ur Leukocyte Esterase Negative (Negative) Urine HCG, Qual (Not Detectd) 09/14/21 Range/Units 20:59 WBC (3.8-10.6) k/uL RBC (3.80-5.40) m/uL Hgb (11.4-16.0) gm/dL Hct (34.0-46.0) % MCV (80.0-100.0) fL MCH (25.0-35.0) pg MCHC (31.0-37.0) g/dL RDW (11.5-15.5) % Plt Count (150-450) k/uL MPV Neutrophils % % Lymphocytes % % Monocytes % % Eosinophils % % Basophils % % Neutrophils # (1.3-7.7) k/uL Lymphocytes # (1.0-4.8) k/uL Monocytes # (0-1.0) k/uL Eosinophils # (0-0.7) k/uL Basophils # (0-0.2) k/uL Hypochromasia Anisocytosis Sodium (137-145) mmol/L Potassium (3.5-5.1) mmol/L Chloride (98-107) mmol/L Carbon Dioxide (22-30) mmol/L Anion Gap mmol/L BUN (7-17) mg/dL Creatinine (0.52-1.04) mg/dL Est GFR (CKD-EPI)AfAm (>60 ml/min/1.73 sqM) Est GFR (CKD-EPI)NonAf (>60 ml/min/1.73 sqM) Glucose (74-99) mg/dL Calcium (8.4-10.2) mg/dL Total Bilirubin (0.2-1.3) mg/dL AST (14-36) U/L ALT (4-34) U/L Alkaline Phosphatase (38-126) U/L Total Protein (6.3-8.2) g/dL Albumin (3.5-5.0) g/dL Lipase (23-300) U/L Urine Color Urine Appearance (Clear) Urine pH (5.0-8.0) Ur Specific [place] (1.001-1.035) Urine Protein (Negative) Urine Glucose (UA) (Negative) Urine Ketones (Negative) Urine Blood (Negative) Urine Nitrite (Negative) Urine Bilirubin (Negative) Urine Urobilinogen (<2.0) mg/dL Ur Leukocyte Esterase (Negative) Urine HCG, Qual Not Detected (Not Detectd) - Radiology Data Radiology results: report reviewed, image reviewed Disposition Clinical Impression: Lower abdominal pain Disposition: HOME SELF-CARE Condition: Good Instructions (If sedation given, give patient instructions): Abdominal Pain (ED) Additional Instructions: Clear liquid diet for 24 hours. Call tomorrow morning for follow-up appointment with the packaging specialist. Follow-up with your regular physician as directed. Return to the ER immediately if any symptoms worsen, new symptoms arise, or any other problems develop. Is patient prescribed a controlled substance at d/c from ED?: No When asked, does pt state using other controlled substances?: No If prescribed controlled substance>3 days was MAPS reviewed?: No If opioid is for acute pain is fill amount 7 days or less?: No If Rx opioid, was Start Talking consent form obtained?: No Referrals: Brissa Jj MD [STAFF PHYSICIAN] - 09/16/21 Time of Disposition: 23:50
[2021-09-14 21:08] LABS: Appearance,Urine Clear (Clear); Bilirubin,Urine Negative (Negative); Blood,Urine Negative (Negative); Color,Urine Yellow; Glucose,Urine (UA) Negative (Negative); Ketones,Urine Negative (Negative); Leukocyte Esterase,Urine Negative (Negative); Nitrite,Urine Negative (Negative); Protein,Urine Negative (Negative); Specific Gravity,Urine 1.019 (1.001-1.035); Urobilinogen,Urine <2.0 mg/dL (<2.0)
[2021-09-14 21:16] LABS: ALT 17 U/L (4-34); AST 18 U/L (14-36); African American GFR (CKD) >90 (>60 ml/min/1.73 sqM); Albumin 4.2 g/dL (3.5-5.0); Alkaline Phosphatase 71 U/L (38-126); Anion Gap 6 mmol/L; Blood Urea Nitrogen 12 mg/dL (7-17); Calcium 9.6 mg/dL (8.4-10.2); Carbon Dioxide 28 mmol/L (22-30); Chloride 104 mmol/L (98-107); Glucose 111 mg/dL (74-99); Lipase 207 U/L (23-300); Non-African American GFR(CKD) >90 (>60 ml/min/1.73 sqM); Potassium 3.7 mmol/L (3.5-5.1); Sodium 138 mmol/L (137-145); Total Bilirubin 0.4 mg/dL (0.2-1.3); Total Protein 7.6 g/dL (6.3-8.2)
[2021-09-14 21:32] LABS: Anisocytosis Slight; Basophils % (A) 0 %; Eosinophils # (A) 0.3 k/uL (0-0.7); Eosinophils % (A) 4 %; HGB 11.9 gm/dL (11.4-16.0); Hypochromasia Moderate; Lymphocytes # (A) 1.6 k/uL (1.0-4.8); Lymphocytes % (A) 21 %; MCH 25.9 pg (25.0-35.0); MCHC 30.6 g/dL (31.0-37.0); MCV 84.8 fL (80.0-100.0); Monocytes # (A) 0.5 k/uL (0-1.0); Monocytes % (A) 7 %; Neutrophils % (A) 67 %; Platelet Count 302 k/uL (150-450); RDW 17.8 % (11.5-15.5); WBC 7.5 k/uL (3.8-10.6)
--- NOTE | 2021-09-14 23:25 | CT ---
EXAMINATION TYPE: CT abdomen pelvis wo con DATE OF EXAM: 09/14/2021 COMPARISON: 08/30/2021 HISTORY: LLQ pain CT DLP: 950 mGycm Automated exposure control for dose reduction was used. Images obtained from the diaphragm to the floor the pelvis with no contrast. The lung bases are clear. No pleural effusion. Heart size is normal. No pericardial effusion. There i s ventricular peritoneal shunt catheter noted. Liver spleen and stomach pancreas gallbladder appear i ntact. The bile ducts are not dilated. There is no adrenal mass. Kidneys show normal size and contour. There is no hydronephrosis. Ureters a re not dilated. There is no retroperitoneal adenopathy. The bladder distends smoothly. There is no in ternal hernia. No free fluid in the pelvis. Uterus is anteverted. Lumbar vertebral have normal alignm ent. Posterior elements are intact. There is no compression fracture. There is spinal catheter noted. The bony pelvis is intact. There is no mesenteric edema. No ascites or free air. No evidence of a bowel obstruction. No evidence of abdominal mass. There are clips apparently from appendectomy. Fluid similar to old exam. IMPRESSION: No evidence of acute abnormality of the abdomen and pelvis. There is subcutaneous fluid noted over th e lumbar spine at the spinal catheter. Clinical significance is not clear. Catheter leak is possible.
== END 2021-09-15 00:04 | disposition home or self-care (01) ==
LOC: EC 18:23
DX: R10.30 Lower abdominal pain, unspecified (principal); F17.200 Nicotine dependence, unspecified, uncomplicated; I10 Essential (primary) hypertension; Z88.8 Allergy status to other drugs, medicaments and biological substances; Z91.041 Radiographic dye allergy status; Z88.9 Allergy status to unspecified drugs, medicaments and biological substances; Z88.1 Allergy status to other antibiotic agents
CPT/HCPCS: 36415; 80053; 83690; 85025; 81003; 81025; 74176; 99284; 96374; 96375; 96376; 96361; J2270; J2405